=== PATIENT | male | born 1955 | race Caucasian/White ===

== ENCOUNTER 2022-10-31 05:09 | Inpatient (IN) | payer MEDICARE, OTHER ==
[2022-10-31] MEDS ORDERED: methylPREDNISolone SOD SUCCI 125 MG/2 ML VIAL IV STA (05:21)
--- NOTE | 2022-10-31 05:33 | ED ---
General Adult HPI - General Chief complaint: Shortness of Breath Stated complaint: JUAN Time Seen by Provider: 10/31/22 05:11 Source: patient, RN notes reviewed, old records reviewed Mode of arrival: EMS Limitations: no limitations - History of Present Illness Initial comments: 67-year-old male history of COPD and CHF, current smoker presenting for evalu ation of cough and dyspnea over the past one week. Patient denies fever. Denies chest pain. Denies lower extremity pain or swelling. His been compliant with his medications which include blood pressure medications, Eliquis, and water pill. He's had a cough which is occasionally productive. He was transported by paramedics, given DuoNeb during transport with significant improvement - Related Data Allergies Allergy/AdvReac Type Severity Reaction Status Date / Time No Known Allergies Allergy Verified 10/31/22 05:16 Review of Systems ROS Statement: Those systems with pertinent positive or pertinent negative responses have been documented in the HPI. ROS Other: All systems not noted in ROS Statement are negative. Past Medical History Past Medical History: COPD Additional Past Medical History / Comment(s): CHF Past Surgical History: No Surgical Hx Reported Smoking Status: Current every day smoker Past Alcohol Use History: None Reported Past Drug Use History: Marijuana General Exam Limitations: no limitations General appearance: alert, in no apparent distress Head exam: Present: atraumatic, normocephalic Eye exam: Present: normal appearance, PERRL ENT exam: Present: normal exam Neck exam: Present: normal inspection. Absent: tenderness, meningismus Respiratory exam: Present: wheezes, rhonchi, decreased breath sounds. Absent: respiratory distress Cardiovascular Exam: Present: normal rhythm, tachycardia GI/Abdominal exam: Present: soft. Absent: distended, tenderness Extremities exam: Present: normal inspection, normal capillary refill. Absent: pedal edema, calf tenderness Neurological exam: Present: alert, oriented X3, CN II-XII intact. Absent: motor sensory deficit Skin exam: Present: warm, dry, intact. Absent: cyanosis, diaphoretic Course Vital Signs 10/31/22 10/31/22 05:11 06:36 Temperature 98.1 F Pulse Rate 115 H 95 Respiratory 18 20 Rate Blood Pressure 140/87 129/82 O2 Sat by Pulse 97 95 Oximetry EKG Findings - EKG Comments: EKG Findings:: EKG: Sinus tachycardia rate of 112, OK interval 128, QRS duration 132, QTC 422, no ST segment elevation, nonspecific T-wave changes in the lateral precordium, intraventricular conduction delay. No old for comparison. - EKG Results: EKG: interpreted by [facility] Medical Decision Making - Medical Decision Making Was pt. sent in by a medical professional or institution (CLAYTON Mcgowan, DETAIL ASSEMBLER, urgent care, hospital, or intermediate...) When possible be specific @ -[No] Did you speak to anyone other than the patient for history (EMS, parent, family, police, friend...)? What history was obtained from this source @ -[No] Did you review nursing and triage notes (agree or disagree)? Why? @ -[I reviewed and agree with nursing and triage notes] Were old charts reviewed (outside hosp., previous admission, EMS record, old EKG, old radiological studies, urgent care reports/EKG's, intermediate records)? Report findings @ -[No old charts were reviewed] Differential Diagnosis (chest pain, altered mental status, abdominal pain women, abdominal pain men, vaginal bleeding, weakness, fever, dyspnea, syncope, headache, dizziness, GI bleed, back pain, seizure, CVA, palpatations, mental health, musculoskeletal)? @ -Differential Dyspnea: Coronary syndrome, arrhythmia, tamponade, asthma, COPD, pulmonary embolism, pneu monia, pneumothorax, pulmonary effusion, anaphylaxis, diabetic ketoacidosis, flailed chest, pulmonary contusion, diaphragmatic rupture, anemia, neuromuscular, this is not meant to be an all-inclusive list. EKG interpreted by me (3pts min.). @ -[As above] X-rays interpreted by me (1pt min.). @ -Chest x-ray showing pulmonary vascular congestion CT interpreted by me (1pt min.). @ -[None done] U/S interpreted by me (1pt. min.). @ -[None done] What testing was considered but not performed or refused? (CT, X-rays, U/S, labs)? Why? @ -[None] What meds were considered but not given or refused? Why? @ -[None] Did you discuss the management of the patient with other professionals (professionals i.e. CLAYTON Mcgowan, DETAIL ASSEMBLER, lab, RT, psych nurse, social media designer, family lawyer, teacher, correctional program officer, shoe parts caser)? Give summary @ -[Case discussed with the admitting team] Was smoking cessation discussed for >3mins.? @ -[No] Was critical care preformed (if so, how long)? @ -[No] Were there social determinants of health that impacted care today? How? (Home lessness, low income, unemployed, alcoholism, drug addiction, transportation, low edu. Level, literacy, decrease access to med. care, correction, rehab)? @ -[No] Was there de-escalation of care discussed even if they declined (Discuss DNR or withdrawal of care, Hospice)? DNR status @ -[No] What co-morbidities impacted this encounter? (DM, HTN, Smoking, COPD, CAD, Cancer, CVA, ARF, Chemo, Hep., AIDS, mental health diagnosis, sleep apnea, morbid obesity)? @ -[CAD, CHF, COPD] Was patient admitted / discharged? Hospital course, mention meds given and route, prescriptions, significant lab abnormalities, going to OR and other pertinent info. @ -[67-year-old male history of COPD and CHF with increased dyspnea. Likely factors are contributing. Patient is anticoagulated on our requests. No active chest pain. No fever. Vital signs are stable but the patient does have moderate dyspnea and tachypnea with exertion. He'll be kept in observation for treatment of both COPD and CHF. His troponin level is mildly elevated at 0.04 this level will be trended. He is given Lasix, steroids, albuterol and Atrovent in the emergency department] Undiagnosed new problem with uncertain prognosis? @ -[No] Drug Therapy requiring intensive monitoring for toxicity (Heparin, Nitro, Insulin, Cardizem)? @ -[No] Were any procedures done? @ -[No] Diagnosis/symptom? @ -[COPD, CHF] Acute, or Chronic, or Acute on Chronic? @ -[Acute] Uncomplicated (without systemic symptoms) or Complicated (systemic symptoms)? @ -[Complicated] Side effects of treatment? @ -[No] Exacerbation, Progression, or Severe Exacerbation? @ -[COPD exacerbation] Poses a threat to life or bodily function? How? (Chest pain, [place], [place], pneumonia, PE, COPD, DKA, ARF, appy, cholecystitis, CVA, Diverticulitis, Homicidal, Suicidal, threat to staff... and all critical care pts) @ -[Yes, increased work of breathing, hypoxia, respiratory failure] - Lab Data Result diagrams: 10/31/22 05:25 10/31/22 05:25 Lab Results 10/31/22 10/31/22 10/31/22 Range/Units 05:25 05:25 05:25 WBC 7.3 (3.8-10.6) k/uL RBC 4.92 (4.30-5.90) m/uL Hgb 13.2 (13.0-17.5) gm/dL Hct 40.6 (39.0-53.0) % MCV 82.6 (80.0-100.0) fL MCH 26.9 (25.0-35.0) pg MCHC 32.6 (31.0-37.0) g/dL RDW 15.7 H (11.5-15.5) % Plt Count 199 (150-450) k/uL MPV 7.4 Neutrophils % 68 % Lymphocytes % 21 % Monocytes % 5 % Eosinophils % 3 % Basophils % 0 % Neutrophils # 5.0 (1.3-7.7) k/uL Lymphocytes # 1.5 (1.0-4.8) k/uL Monocytes # 0.4 (0-1.0) k/uL Eosinophils # 0.2 (0-0.7) k/uL Basophils # 0.0 (0-0.2) k/uL PT 11.1 (9.0-12.0) sec INR 1.1 (<1.2) APTT 25.6 (22.0-30.0) sec Sodium 140 (137-145) mmol/L Potassium 4.5 (3.5-5.1) mmol/L Chloride 108 H (98-107) mmol/L Carbon Dioxide 24 (22-30) mmol/L Anion Gap 8 mmol/L BUN 28 H (9-20) mg/dL Creatinine 0.89 (0.66-1.25) mg/dL Est GFR (CKD-EPI)AfAm >90 (>60 ml/min/1.73 sqM) Est GFR (CKD-EPI)NonAf 89 (>60 ml/min/1.73 sqM) Glucose 102 H (74-99) mg/dL Calcium 9.1 (8.4-10.2) mg/dL Total Bilirubin 0.5 (0.2-1.3) mg/dL AST 26 (17-59) U/L ALT 41 (4-49) U/L Alkaline Phosphatase 77 (38-126) U/L Troponin I (0.000-0.034) ng/mL NT-Pro-B Natriuret Pep pg/mL Total Protein 6.7 (6.3-8.2) g/dL Albumin 3.9 (3.5-5.0) g/dL 10/31/22 10/31/22 Range/Units 05:25 05:25 WBC (3.8-10.6) k/uL RBC (4.30-5.90) m/uL Hgb (13.0-17.5) gm/dL Hct (39.0-53.0) % MCV (80.0-100.0) fL MCH (25.0-35.0) pg MCHC (31.0-37.0) g/dL RDW (11.5-15.5) % Plt Count (150-450) k/uL MPV Neutrophils % % Lymphocytes % % Monocytes % % Eosinophils % % Basophils % % Neutrophils # (1.3-7.7) k/uL Lymphocytes # (1.0-4.8) k/uL Monocytes # (0-1.0) k/uL Eosinophils # (0-0.7) k/uL Basophils # (0-0.2) k/uL PT (9.0-12.0) sec INR (<1.2) APTT (22.0-30.0) sec Sodium (137-145) mmol/L Potassium (3.5-5.1) mmol/L Chloride (98-107) mmol/L Carbon Dioxide (22-30) mmol/L Anion Gap mmol/L BUN (9-20) mg/dL Creatinine (0.66-1.25) mg/dL Est GFR (CKD-EPI)AfAm (>60 ml/min/1.73 sqM) Est GFR (CKD-EPI)NonAf (>60 ml/min/1.73 sqM) Glucose (74-99) mg/dL Calcium (8.4-10.2) mg/dL Total Bilirubin (0.2-1.3) mg/dL AST (17-59) U/L ALT (4-49) U/L Alkaline Phosphatase (38-126) U/L Troponin I 0.040 H* (0.000-0.034) ng/mL NT-Pro-B Natriuret Pep 1300 pg/mL Total Protein (6.3-8.2) g/dL Albumin (3.5-5.0) g/dL Disposition Clinical Impression: Acute exacerbation of chronic obstructive pulmonary disease, Congestive heart failure Disposition: ADMITTED IP TO THIS [facility] Condition: Stable Is patient prescribed a controlled substance at d/c from ED?: No Referrals: Nonstaff,Physician [Primary Care Provider] - 1-2 days Time of Disposition: 06:57
[2022-10-31 05:43] LABS: Basophils % (A) 0 %; Eosinophils # (A) 0.2 k/uL (0-0.7); Eosinophils % (A) 3 %; HCT 40.6 % (39.0-53.0); HGB 13.2 gm/dL (13.0-17.5); Lymphocytes # (A) 1.5 k/uL (1.0-4.8); Lymphocytes % (A) 21 %; MCH 26.9 pg (25.0-35.0); MCHC 32.6 g/dL (31.0-37.0); MCV 82.6 fL (80.0-100.0); Mean Platelet Volume 7.4; Monocytes # (A) 0.4 k/uL (0-1.0); Monocytes % (A) 5 %; Neutrophils % (A) 68 %; Platelet Count 199 k/uL (150-450); RBC 4.92 m/uL (4.30-5.90); RDW 15.7 % (11.5-15.5); WBC 7.3 k/uL (3.8-10.6)
[2022-10-31 05:52] LABS: INR 1.1 (<1.2); Partial Thromboplastin Time 25.6 sec (22.0-30.0); Prothrombin Time 11.1 sec (9.0-12.0)
[2022-10-31 05:54] LABS: ALT 41 U/L (4-49); AST 26 U/L (17-59); African American GFR (CKD) >90 (>60 ml/min/1.73 sqM); Albumin 3.9 g/dL (3.5-5.0); Alkaline Phosphatase 77 U/L (38-126); Anion Gap 8 mmol/L; Blood Urea Nitrogen 28 mg/dL (9-20); Calcium 9.1 mg/dL (8.4-10.2); Carbon Dioxide 24 mmol/L (22-30); Chloride 108 mmol/L (98-107); Glucose 102 mg/dL (74-99); Non-African American GFR(CKD) 89 (>60 ml/min/1.73 sqM); Potassium 4.5 mmol/L (3.5-5.1); Sodium 140 mmol/L (137-145); Total Bilirubin 0.5 mg/dL (0.2-1.3); Total Protein 6.7 g/dL (6.3-8.2)
--- NOTE | 2022-10-31 06:06 | XR ---
EXAMINATION TYPE: XR chest 2V DATE OF EXAM: 10/31/2022 COMPARISON: NONE HISTORY: Difficulty in breathing. TECHNIQUE: Frontal and lateral views of the chest are obtained. FINDINGS: Increased interstitial markings bilaterally. Cardiac silhouette size is upper limits of no rmal with single lead AICD. No pleural effusion or pneumothorax seen bilaterally. The osseous struc tures are intact. IMPRESSION: Increased interstitial markings bilaterally consistent with edema and/or parenchymal fib rotic change. Correlate for fluid overload state. Correlate with old outside x-ray and/or CT would be beneficial.
[2022-10-31] MEDS ORDERED: ACETAMINOPHEN TAB 325 MG TAB PO PRN (06:52)
[2022-10-31] MEDS ORDERED: NALOXONE 0.4 MG/ML 1 ML VIAL IVP PRN (06:52)
[2022-10-31] MEDS ORDERED: IPRATROPIUM-ALBUTEROL 3 ML NEB INHALATION PRN (06:52)
[2022-10-31] MEDS ORDERED: FUROSEMIDE 10 MG/ML 4 ML VIAL IV STA (06:54)
[2022-10-31] MEDS ORDERED: IPRATROPIUM 0.5 MG/2.5 ML NEBU INHALATION PRN (07:00)
[2022-10-31] MEDS ORDERED: ALBUTEROL NEBULIZED 2.5 MG/3 ML INHALATION PRN (07:00)
[2022-10-31] MEDS ORDERED: ASPIRIN 325 MG TAB PO STA (07:28)
--- NOTE | 2022-10-31 07:31 | P.HPIM ---
History of Present Illness This is a pleasant 67 years old male with past medical history of heart failure on defibrillator. Patient originally from [place] and moved to [place] on, he is not sure if he is staying in town are not. He follow-up with PCP and negative cleaner there, he has history of defibrillator as he describes. Presents because of shortness of breath also complaining of from cough and some phlegm for about one to 2 weeks but denies any chest pain or discomfort. No abdominal pain vomiting or diarrhea, no urinary symptoms, no headache weakness or numbness. He smokes about 2 cigarettes per day and he was counseled to quit and he agrees but he declines nicotine patch. No alcohol. He uses pot as he describes. Vitals stable, he is mildly tachycardic. Labs show an unremarkable CBC, INR, BMP and liver enzymes. Troponin mildly elevated at 0.04. ProBNP is mildly elevated 1300. Chest x-ray which I reviewed by myself showing: Increased interstitial markings consistent with edema and/or parenchymal fibrotic changes. Correlate for fluid overload state. EKG: Sinus tachycardia at [address]-T changes. QRS is slightly prolonged. In the emergency room patient received one dose of Lasix and Zithromax and placed on some Medrol 60 mg Review of Systems Review of systems CONSTITUTIONAL: No fever, no malaise, no fatigue. HEENT: No recent visual problems or hearing problems. Denied any sore throat. CARDIOVASCULAR: No orthopnea, PND, no palpitations, no syncope. PULMONARY: No chest wall tenderness, no hemoptysis. GASTROINTESTINAL: No diarrhea, no nausea, no vomiting, no abdominal pain. Normoactive bowel sounds. NEUROLOGICAL: No headaches, no weakness, no numbness. HEMATOLOGICAL: Denies any bleeding or petechiae. GENITOURINARY: Denies any burning micturition, frequency, or urgency. MUSCULOSKELETAL/RHEUMATOLOGICAL: Denies any joint pain, swelling, or any muscle pain. ENDOCRINE: Denies any polyuria or polydipsia. Past Medical History Past Medical History: COPD Additional Past Medical History / Comment(s): CHF Past Surgical History: No Surgical Hx Reported Smoking Status: Current every day smoker Past Alcohol Use History: None Reported Past Drug Use History: Marijuana Medications and Allergies Allergies Allergy/AdvReac Type Severity Reaction Status Date / Time No Known Allergies Allergy Verified 10/31/22 05:16 Physical Exam Vitals: Vital Signs Temp Pulse Resp BP Pulse Ox 10/31/22 06:36 95 20 129/82 95 10/31/22 05:11 98.1 F 115 H 18 140/87 97 Intake and Output 10/30/22 10/31/22 10/31/22 22:59 06:59 14:59 Other: Weight 122.47 kg -GENERAL: The patient is alert and oriented x3, not in any acute distress obese HEENT: Pupils are round and equally reacting to light. EOMI. No scleral icterus. No conjunctival pallor. Normocephalic, atraumatic. No pharyngeal erythema. No thyromegaly. CARDIOVASCULAR: S1 and S2 present. No murmurs, rubs, or gallops. -PULMONARY: Chest is clear to auscultation, no wheezing or crackles. Very mild wheezing and prolonged expiration ABDOMEN: Soft, nontender, nondistended, normoactive bowel sounds. No palpable organomegaly. MUSCULOSKELETAL: No joint swelling or deformity. EXTREMITIES: No cyanosis, clubbing, or pedal edema. NEUROLOGICAL: Gross neurological examination did not reveal any focal deficits. SKIN: No rashes. no petechiae. Results CBC & Chem 7: 10/31/22 05:25 10/31/22 05:25 Labs: Abnormal Lab Results - Last 24 Hours (Table) 10/31/22 10/31/22 10/31/22 Range/Units 05:25 05:25 05:25 RDW 15.7 H (11.5-15.5) % Chloride 108 H (98-107) mmol/L BUN 28 H (9-20) mg/dL Glucose 102 H (74-99) mg/dL Troponin I 0.040 H* (0.000-0.034) ng/mL Assessment and Plan Assessment: Shortness of breath, most likely acute CHF exacerbation and rather than bronchitis or COPD Mildly elevated troponin, could be explained by CHF, rule out ischemic disease. Nicotine dependence Substance abuse with marijuana Obesity with BMI of 34.7. Plan: Continue with IV Lasix 40 mg twice daily Cardiology consult We will give aspirin 325 mg and then continue with 81 mg daily We'll start patient on metoprolol small dose, and PREET inhibitor Also statin 20 mg of Lipitor and check lipid profile Check echocardiogram, since patient from the tonsil probably he does not have echocardiogram mobile sales assistant Change steroids into prednisone 40, patient also might benefit from pulmonary function tests as an outpatient. Continue with bronchodilator Labs and medication were reviewed.. Continue same treatment. Continue with symptomatic treatment. Resume home medication. Monitor labs and vitals. DVT and GI prophylaxis. Further recommendations as per clinical course of the patient DVT prophylaxis: Subcutaneous heparin GI Prophylaxis: Pepcid PT/OT: Pending Prognosis is guarded
[2022-10-31] MEDS ORDERED: IPRATROPIUM-ALBUTEROL 3 ML NEB INHALATION SCH (08:00)
[2022-10-31] MEDS ORDERED: lisinopriL 5 MG TAB PO SCH (09:00)
[2022-10-31] MEDS ORDERED: HEPARIN SODIUM,PORCINE/PF 5,000 UNIT/0.5 ML SYRINGE SQ SCH (09:00)
[2022-10-31] MEDS ORDERED: carvediloL 6.25 MG TAB PO SCH (09:00)
[2022-10-31] MEDS ORDERED: METOPROLOL TARTRATE 12.5 MG TAB PO SCH (09:00)
[2022-10-31] MEDS ORDERED: AZITHROMYCIN 500 MG TAB PO SCH (09:00)
[2022-10-31] MEDS ORDERED: predniSONE 20 MG TAB PO SCH ×2 (09:00)
[2022-10-31] MEDS ORDERED: FUROSEMIDE 40 MG TAB PO SCH (09:00)
--- NOTE | 2022-10-31 11:32 | P.CRDCN ---
History of Present Illness Consult date: 10/31/22 Consult reason: congestive heart failure (And elevated troponins) History of present illness: History of present illness: This is a 67-year-old male with previous history of cardiomyopathy status post AICD, chronic systolic heart failure, permanent atrial fibrillation, hypertension, COPD, active tobacco use and dependence. Patient is from the [facility] and follows with a hospital technician there. He believes that he will be staying in the [facility]. Patient states he has had shortness of breath for 1-2 weeks. No chest pain, no lightheadedness or dizziness. He states at this time he would not be able to walk up a flight of stairs which is normally easy for him. He is an active smoker couple cigarettes per day. He denies o PND, +orthopnea, +cough. Blood pressure readings have been elevated. In the emergency center, patient was started on IV Lasix, IV Solu-Medrol. Patient does not recall if he has had a cardiac catheterization before believes he had a stress test done last summer. EKG sinus tachycardia with T-wave changes in lateral leads, biphasic P waves in leads V5, V6, aVL Chest x-ray: Increased interstitial markings bilaterally consistent with edema and/or pressure mild fibrotic change. Correlate for fluid overload state. Correlate with old x-ray CAT scan. WBC 7.3, hemoglobin 13.2, platelet count 199. INR 1.1. Sodium 140, potassium 4.5, BUN 20 creatinine 0.89. Troponin 0.040 and 0.031. ProBNP 1300. Home cardiac medications: Amiodarone 200 mg daily, eliquis 5 mg daily, Coreg 6.25 mg daily, Lasix 40 mg daily, lisinopril 10 mg daily Review Of Systems: At the time of my evaluation: Constitutional: No fever, no chills. No weakness, fatigue or lethargy. EENT: No headache. No dizziness. Lungs: Reports shortness of breath, reports cough, no sputum production. No wheezing. Cardiovascular: No chest pain, no lower extremity edema. No palpitations. No paroxysmal nocturnal dyspnea. No orthopnea. No lightheadedness or dizziness. No syncopal episodes. Abdominal: No abdominal pain. No nausea, vomiting. No diarrhea. No constipation. No bloody or tarry stools. Musculoskeletal: No muscle weakness. Neurologic: No aphasia. No facial droop. No change in mentation. No head injury. No headache. Physical examination: Gen: This is a 67-year-old male. He is resting in bed and appears very comfortable and in no acute distress. VS: reviewed HEENT: Head is atraumatic, normocephalic. Pupils equal, round. Sclerae is anicteric. NECK: Supple. No JVD. . LUNGS: Diminished breath sounds bilaterally. No wheezing. No intercostal retractions. HEART: Regular rate and rhythm. No murmur. AICD left anterior chest wall ABDOMEN: Soft No tenderness. EXTREMITIES: No pedal edema. No calf tenderness. NEUROLOGICAL: Patient is awake, alert and oriented x3. Assessment: Acute on chronic systolic heart failure Cardiomyopathy status post AICD, unknown if this is ischemic or nonischemic Permanent atrial fibrillation currently in sinus rhythm Hypertension COPD Active tobacco use and dependence Plan: Resume patient's home cardiac medications, increased frequency of Coreg to twice daily Continue IV Lasix 40 mg every 12 hours, monitor I&O, daily weights, electrolytes and renal function Decrease prednisone to 20 mg daily and plan to discontinue soon Discontinue aspirin Obtain TSH/free T4, lipid panel, A1c Obtain 2-D echocardiogram and Doppler study to assess cardiac structure and function Obtain records from [facility] Further recommendations to follow based upon clinical course Thank you kindly for this consultation. Nurse practitioner note has been reviewed, I agree with documented findings and plan of care. Patient was seen and examined. Past Medical History Past Medical History: COPD Additional Past Medical History / Comment(s): CHF Past Surgical History: No Surgical Hx Reported Smoking Status: Current every day smoker Past Alcohol Use History: None Reported Past Drug Use History: Marijuana Medications and Allergies Home Medications Medication Instructions Recorded Confirmed Type Amiodarone [Cordarone] 200 mg PO DAILY 10/31/22 10/31/22 History Apixaban [Eliquis] 5 mg PO DAILY 10/31/22 10/31/22 History Furosemide [Lasix] 40 mg PO DAILY 10/31/22 10/31/22 History Gabapentin 600 mg PO TID PRN 10/31/22 10/31/22 History carvediloL [Coreg] 6.25 mg PO DAILY 10/31/22 10/31/22 History lisinopriL [Zestril] 10 mg PO DAILY 10/31/22 10/31/22 History Allergies Allergy/AdvReac Type Severity Reaction Status Date / Time No Known Allergies Allergy Verified 10/31/22 08:20 Physical Exam Vitals: Vital Signs Temp Pulse Resp BP Pulse Ox 10/31/22 06:36 95 20 129/82 95 10/31/22 05:11 98.1 F 115 H 18 140/87 97 Intake and Output 10/30/22 10/31/22 10/31/22 22:59 06:59 14:59 Other: Weight 122.47 kg Results 10/31/22 05:25 10/31/22 05:25 Cardiac Enzymes 10/31/22 10/31/22 Range/Units 05:25 05:25 AST 26 (17-59) U/L Troponin I 0.040 H* (0.000-0.034) ng/mL Coagulation 10/31/22 Range/Units 05:25 PT 11.1 (9.0-12.0) sec APTT 25.6 (22.0-30.0) sec CBC 10/31/22 Range/Units 05:25 WBC 7.3 (3.8-10.6) k/uL RBC 4.92 (4.30-5.90) m/uL Hgb 13.2 (13.0-17.5) gm/dL Hct 40.6 (39.0-53.0) % Plt Count 199 (150-450) k/uL Comprehensive Metabolic Panel 10/31/22 Range/Units 05:25 Sodium 140 (137-145) mmol/L Potassium 4.5 (3.5-5.1) mmol/L Chloride 108 H (98-107) mmol/L Carbon Dioxide 24 (22-30) mmol/L BUN 28 H (9-20) mg/dL Creatinine 0.89 (0.66-1.25) mg/dL Glucose 102 H (74-99) mg/dL Calcium 9.1 (8.4-10.2) mg/dL AST 26 (17-59) U/L ALT 41 (4-49) U/L Alkaline Phosphatase 77 (38-126) U/L Total Protein 6.7 (6.3-8.2) g/dL Albumin 3.9 (3.5-5.0) g/dL Current Medications Generic Name Dose Route Start Last Admin Trade Name Freq PRN Reason Stop Dose Admin Acetaminophen 650 mg 10/31/22 06:52 Acetaminophen Tab 325 Mg Tab PO Q4HR PRN Mild Pain or Fever > 100.5 Albuterol Sulfate 2.5 mg 10/31/22 08:00 Albuterol Nebulized 2.5 Mg/3 Ml INHALATION RT-QID [facility] Albuterol Sulfate 2.5 mg 10/31/22 07:00 Albuterol Nebulized 2.5 Mg/3 Ml INHALATION RT-Q2H PRN Shortness Of Breath Or Wheezing Amiodarone HCl 200 mg 10/31/22 09:00 Amiodarone 200 Mg Tab PO DAILY [facility] Apixaban 5 mg 10/31/22 09:00 Apixaban 5 Mg Tab PO DAILY [facility] Protocol Aspirin 81 mg 11/01/22 09:00 Aspirin 81 Mg PO DAILY [facility] Atorvastatin Calcium 20 mg 10/31/22 21:00 Atorvastatin 20 Mg Tab PO HS [facility] Azithromycin 500 mg 10/31/22 09:00 Azithromycin 500 Mg Tab PO 11/02/22 09:01 DAILY [facility] Protocol Budesonide/Formoterol Fumarate 2 puff 10/31/22 08:00 Symbicort 160-4.5 Mcg Inhaler INHALATION RT-BID [facility] Carvedilol 6.25 mg 10/31/22 09:00 Carvedilol 6.25 Mg Tab PO DAILY [facility] Famotidine 20 mg 10/31/22 09:00 Famotidine 20 Mg/2 Ml Vial IV Q12HR [facility] Furosemide 40 mg 10/31/22 21:00 Furosemide 10 Mg/Ml 4 Ml Vial IV Q12HR [facility] Ipratropium [place] 0.5 mg 10/31/22 08:00 Ipratropium 0.5 Mg/2.5 Ml Nebu INHALATION RT-QID [facility] Ipratropium [place] 0.5 mg 10/31/22 07:00 Ipratropium 0.5 Mg/2.5 Ml Nebu INHALATION RT-Q2H PRN Shortness Of Breath Or Wheezing Naloxone HCl 0.2 mg 10/31/22 06:52 Naloxone 0.4 Mg/Ml 1 Ml Vial IVP Q2M PRN Opioid Reversal Prednisone 20 mg 10/31/22 09:00 Prednisone 20 Mg Tab PO DAILY [facility] Sacubitril/Valsartan 1 each 11/02/22 09:00 Sacubitril/Valsartan 24 Mg-26 Mg Tablet PO BID YVES Intake and Output 10/30/22 10/31/22 10/31/22 22:59 06:59 14:59 Other: Weight 122.47 kg 10/31/22 05:25 10/31/22 05:25
[2022-10-31] MEDS: ALBUTEROL NEBULIZED 2.5 MG/3 ML INHALATION SCH ×4 (11:37→20:23)
[2022-10-31] MEDS: IPRATROPIUM 0.5 MG/2.5 ML NEBU INHALATION SCH ×4 (11:38→20:22)
[2022-10-31] MEDS: SYMBICORT 160-4.5 MCG INHALER INHALATION SCH ×2 (11:38→20:22)
[2022-10-31] MEDS: FAMOTIDINE 20 MG/2 ML VIAL IV SCH ×2 (11:42→21:13)
[2022-10-31] MEDS: AMIODARONE 200 MG TAB PO SCH (11:43)
[2022-10-31] MEDS: APIXABAN 5 MG TAB PO SCH (11:44)
[2022-10-31 11:59] LABS: Chol/HDL Ratio 3.76 Ratio; LDL Cholesterol,Calculated 104.4 mg/dL (0.0-131.0); VLDL Calculation 14.46 mg/dL (5.00-40.00)
[2022-10-31] MEDS ORDERED: methylPREDNISolone SOD SUCCI 125 MG/2 ML VIAL IV SCH (12:00)
[2022-10-31] MEDS ORDERED: FUROSEMIDE 10 MG/ML 4 ML VIAL IV SCH (21:00)
[2022-10-31] MEDS ORDERED: ATORVASTATIN 20 MG TAB PO SCH (21:00)
[2022-10-31] MEDS: carvediloL 6.25 MG TAB PO SCH (21:14)
[2022-11-01 01:58] VITALS: RESP 18
[2022-11-01 07:35] LABS: Basophils % (A) 0 %; Eosinophils % (A) 0 %; HCT 44.7 % (39.0-53.0); HGB 14.2 gm/dL (13.0-17.5); Lymphocytes # (A) 1.3 k/uL (1.0-4.8); Lymphocytes % (A) 8 %; MCH 26.8 pg (25.0-35.0); MCHC 31.7 g/dL (31.0-37.0); MCV 84.4 fL (80.0-100.0); Mean Platelet Volume 7.5; Monocytes # (A) 0.8 k/uL (0-1.0); Monocytes % (A) 5 %; Neutrophils # (A) 13.1 k/uL (1.3-7.7); Neutrophils % (A) 85 %; Platelet Count 273 k/uL (150-450); RBC 5.29 m/uL (4.30-5.90); RDW 15.6 % (11.5-15.5); WBC 15.4 k/uL (3.8-10.6)
[2022-11-01 08:16] LABS: Calcium 9.2 mg/dL (8.4-10.2); Potassium 4.6 mmol/L (3.5-5.1)
[2022-11-01] MEDS: ALBUTEROL NEBULIZED 2.5 MG/3 ML INHALATION SCH ×3 (08:49→16:04)
[2022-11-01] MEDS: SYMBICORT 160-4.5 MCG INHALER INHALATION SCH (08:49)
[2022-11-01] MEDS ORDERED: predniSONE 5 MG TAB PO SCH (09:00)
[2022-11-01] MEDS ORDERED: ASPIRIN 81 MG PO SCH (09:00)
[2022-11-01] MEDS ORDERED: FUROSEMIDE 40 MG TAB PO SCH (09:00)
[2022-11-01] MEDS: IPRATROPIUM 0.5 MG/2.5 ML NEBU INHALATION SCH ×3 (09:04→16:05)
[2022-11-01] MEDS: AMIODARONE 200 MG TAB PO SCH (09:24)
[2022-11-01] MEDS: APIXABAN 5 MG TAB PO SCH (09:24)
[2022-11-01] MEDS: carvediloL 6.25 MG TAB PO SCH (09:24)
[2022-11-01] MEDS: FAMOTIDINE 20 MG/2 ML VIAL IV SCH (09:25)
--- NOTE | 2022-11-01 09:52 | P.PN ---
Subjective Progress Note Date: 11/01/22 History of present illness: This is a 67-year-old male with previous history of cardiomyopathy status post AICD, chronic systolic heart failure, permanent atrial fibrillation, hypertension, COPD, active tobacco use and dependence. Patient is from the [facility] and follows with a city assessor there. He believes that he will be staying in the [facility]. Patient states he has had shortness of breath for 1-2 weeks. No chest pain, no lightheadedness or dizziness. He states at this time he would not be able to walk up a flight of stairs which is normally easy for him. He is an active smoker couple cigarettes per day. He denies o PND, +orthopnea, +cough. Blood pressure readings have been elevated. In the emergency center, patient was started on IV Lasix, IV Solu-Medrol. Patient does not recall if he has had a cardiac catheterization before believes he had a stress test done last summer. EKG sinus tachycardia with T-wave changes in lateral leads, biphasic P waves in leads V5, V6, aVL Chest x-ray: Increased interstitial markings bilaterally consistent with edema and/or pressure mild fibrotic change. Correlate for fluid overload state. Correlate with old x-ray CAT scan. WBC 7.3, hemoglobin 13.2, platelet count 199. INR 1.1. Sodium 140, potassium 4.5, BUN 20 creatinine 0.89. Troponin 0.040 and 0.031. ProBNP 1300. Home cardiac medications: Amiodarone 200 mg daily, eliquis 5 mg daily, Coreg 6.25 mg daily, Lasix 40 mg daily, lisinopril 10 mg daily 11/01 Patient is seen today in follow-up. He has been maintained on IV Lasix 40 mg every 12 hours. Weight is documented as down 5 kg. INR does not appear to be accurate. Heart rate has been running in the 102-120 and a repeat EKG will was done which showed sinus tachycardia. Blood pressure 114/78, pulse ox 92% on room air. Repeat blood work today reveals WBC 15.4, hemoglobin 14.2. Potassium 4.6, BUN 39 and creatinine 1.13 up from 0.89. TSH 1.540. Triglycerides 72, cholesterol 162, LDL 104, HDL 43. Echocardiogram has been obtained but report is pending. Reports were not obtained from [place] and will be requested today. Physical examination: Gen: This is a 67-year-old male. He is resting in bed and appears very comfortable and in no acute distress. VS: reviewed HEENT: Head is atraumatic, normocephalic. Pupils equal, round. Sclerae is anicteric. NECK: Supple. No JVD. . LUNGS: Diminished breath sounds bilaterally. No wheezing. No intercostal retractions. HEART: Regular rate and rhythm. No murmur. AICD left anterior chest wall. Tachycardic ABDOMEN: Soft No tenderness. EXTREMITIES: No pedal edema. No calf tenderness. NEUROLOGICAL: Patient is awake, alert and oriented x3. Assessment: Acute on chronic systolic heart failure Sinus tachycardia Cardiomyopathy status post AICD, unknown if this is ischemic or nonischemic Permanent atrial fibrillation currently in sinus rhythm Hypertension COPD Active tobacco use and dependence Plan: Resume patient's home cardiac medications, continue Coreg 6.25 mg twice daily Transition IV Lasix to oral 40 mg twice daily which most likely will be the dose to go home on. Continue to monitor I&O, daily weights, electrolytes and renal function Decrease prednisone to 5 mg daily and plan to discontinue soon Obtain A1c Obtain 2-D echocardiogram and Doppler study to assess cardiac structure and function-report is pending Obtain records from [place] city assessor/[facility] [employer] to interrogate AICD Further recommendations to follow based upon clinical course Nurse practitioner note has been reviewed, I agree with documented findings and plan of care. Patient was seen and examined. Objective - Vital Signs Vital signs: Vital Signs Temp 98.4 F 11/01/22 00:00 Pulse 123 H 11/01/22 02:00 Resp 18 11/01/22 02:00 BP 114/78 11/01/22 00:00 Pulse Ox 92 L 11/01/22 00:00 FiO2 Intake & Output 10/31/22 11/01/22 11/01/22 18:59 06:59 18:59 Intake Total 480 Output Total 0 0 Balance 480 0 Weight 122.47 kg 117 kg Intake: Oral 480 Output: Gastric Drainage 0 Urine 0 Stool 0 0 Urine/Stool Mix 0 Emesis 0 Oral Regurgitation 0 Other 0 Other: Voiding Method Toilet Toilet # Voids 0 1 # Bowel Movements 0 - Labs CBC & Chem 7: 11/01/22 06:16 11/01/22 06:16
--- NOTE | 2022-11-01 12:29 | P.PN ---
Subjective This is a pleasant 67 years old male with past medical history of heart failure on defibrillator. Patient originally from [place] and moved to [place] on, he is not sure if he is staying in town are not. He follow-up with PCP and flat hammerer there, he has history of defibrillator as he describes. Presents because of shortness of breath also complaining of from cough and some phlegm for about one to 2 weeks but denies any chest pain or discomfort. No abdominal pain vomiting or diarrhea, no urinary symptoms, no headache weakness or numbness. He smokes about 2 cigarettes per day and he was counseled to quit and he agrees but he declines nicotine patch. No alcohol. He uses pot as he describes. Vitals stable, he is mildly tachycardic. Labs show an unremarkable CBC, INR, BMP and liver enzymes. Troponin mildly elevated at 0.04. ProBNP is mildly elevated 1300. Chest x-ray which I reviewed by myself showing: Increased interstitial markings consistent with edema and/or parenchymal fibrotic changes. Correlate for fluid overload state. EKG: Sinus tachycardia at [address]-T changes. QRS is slightly prolonged. In the emergency room patient received one dose of Lasix and Zithromax and placed on some Medrol 60 mg Objective - Vital Signs Vital signs: Vital Signs Temp 98.6 F 11/01/22 12:00 Pulse 100 11/01/22 12:00 Resp 18 11/01/22 12:00 BP 132/66 11/01/22 12:00 Pulse Ox 95 11/01/22 12:00 FiO2 Intake & Output 10/31/22 11/01/22 11/01/22 18:59 06:59 18:59 Intake Total 480 390 Output Total 0 875 Balance 480 -875 390 Weight 122.47 kg 117 kg Intake: IV 30 Invasive Line 1 30 Oral 480 360 Output: Gastric Drainage 0 Urine 0 875 Stool 0 0 Urine/Stool Mix 0 Emesis 0 Oral Regurgitation 0 Other 0 Other: Voiding Method Toilet Toilet Urinal # Voids 0 2 # Bowel Movements 0 - Exam GENERAL: The patient is alert and oriented x3, not in any acute distress. Well developed, well nourished. HEENT: Pupils are round and equally reacting to light. EOMI. No scleral icterus. No conjunctival pallor. Normocephalic, atraumatic. No pharyngeal erythema. No thyromegaly. CARDIOVASCULAR: S1 and S2 present. No murmurs, rubs, or gallops. PULMONARY: Chest is clear to auscultation, no wheezing or crackles. ABDOMEN: Soft, nontender, nondistended, normoactive bowel sounds. No palpable organomegaly. MUSCULOSKELETAL: No joint swelling or deformity. EXTREMITIES: No cyanosis, clubbing, or pedal edema. NEUROLOGICAL: Gross neurological examination did not reveal any focal deficits. SKIN: No rashes. no petechiae. - Labs CBC & Chem 7: 11/01/22 06:16 11/01/22 06:16 Labs: Abnormal Lab Results - Last 24 Hours (Table) 11/01/22 11/01/22 Range/Units 06:16 06:16 WBC 15.4 H (3.8-10.6) k/uL RDW 15.6 H (11.5-15.5) % Neutrophils # 13.1 H (1.3-7.7) k/uL BUN 39 H (9-20) mg/dL Glucose 136 H (74-99) mg/dL Assessment and Plan Assessment: Shortness of breath, most likely acute CHF exacerbation and rather than bronchitis or COPD Mildly elevated troponin, could be explained by CHF, rule out ischemic disease. Nicotine dependence Substance abuse with marijuana Obesity with BMI of 34.7. Plan: Continue with oral Lasix 40 mg twice daily Cardiology consult Continue with Eliquis Continue with Coreg Continue with entresto and amiodarone a flat hammerer continue with statin 20 mg of Lipitor and check lipid profile Agree with tapering off prednisone Check echocardiogram, since patient from the tonsil probably he does not have echocardiogram Labs and medication were reviewed.. Continue same treatment. Continue with symptomatic treatment. Resume home medication. Monitor labs and vitals. DVT and GI prophylaxis. Further recommendations as per clinical course of the patient DVT prophylaxis: Eliquis Possible discharge in 24-48 hours was cleared by cardiology service
--- NOTE | 2022-11-01 13:42 | CA ---
Transthoracic Echo Report Name: Slade Mtz Age: 67 Gender: M : 1955 Exam Date: 10/31/2022 07:29 Exam Location: [facility] Ht (in): 72 Wt (lb): 270 Ordering Physician: Maxime Self MD Attending/Referring Phys: [id number], Clair Laundry Washer Jose Hester, FREDRICK Procedure CPT: Indications: Rule out heart disease Cardiac Hx: Technical Quality: Fair Contrast 1: Total Dose (mL): Contrast 2: Total Dose (mL): MEASUREMENTS (Male / Female) Normal Values 2D ECHO LV Diastolic Diameter PLAX 6.5 cm 4.2 - 5.9 / 3.9 - 5.3 cm LV Systolic Diameter PLAX 5.7 cm IVS Diastolic Thickness 1.5 cm 0.6 - 1.0 / 0.6 - 0.9 cm LVPW Diastolic Thickness 1.4 cm 0.6 - 1.0 / 0.6 - 0.9 cm LV Relative Wall Thickness 0.4 RV Internal Dim ED PLAX 3.8 cm LA Volume 102.0 cm??? 18 - 58 / 22 - 52 cm??? M-MODE Aortic Root Diameter MM 3.2 cm AV Cusp Separation MM 2.0 cm DOPPLER AV Peak Velocity 122.4 cm/s AV Peak Gradient 6.0 mmHg LVOT Peak Velocity 104.3 cm/s LVOT Peak Gradient 4.4 mmHg MV Area PHT 7.5 cm??? Mitral E Point Velocity 84.0 cm/s Mitral A Point Velocity 63.8 cm/s Mitral E to A Ratio 1.3 MV Deceleration Time 100.5 ms FINDINGS Left Ventricle Moderately increased septal wall thickness. Moderately increased left ventricular diastolic diameter. Abnormal left ventricular diastolic filling pattern. Left ventricular ejection fraction is estimated at 25-30 %. Right Ventricle Right ventricular dilatation. Right ventricular systolic pressure within normal limits. Right Atrium Normal right atrial size. Catheter/pacemaker wire in the right atrial cavity. Left Atrium Mildly increased left atrial volume. Mitral Valve Moderate mitral regurgitation. Aortic Valve Trileaflet aortic valve. No aortic regurgitation. No aortic stenosis. Tricuspid Valve Trace tricuspid regurgitation. Pulmonic Valve Structurally normal pulmonic valve. No pulmonic regurgitation. Pericardium No pleural effusion. No pericardial effusion. Aorta Normal size aortic root and proximal ascending aorta. CONCLUSIONS Moderate increased left ventricular wall thickness Left ventricular ejection fraction 25-30% Mild right ventricular dilation Mild to moderately dilated left atrium Moderate mitral regurgitation Trace tricuspid regurgitation No pericardial effusion Previewed by: Dr. John Hernandez DO (Electronically Signed) Final Date: 01 November 2022 13:41
[2022-11-01 17:58] VITALS: BP 116/80; PULSE 99; TEMP 98.2
[2022-11-01] MEDS ORDERED: FAMOTIDINE 20 MG TAB PO SCH (21:00)
[2022-11-02] MEDS ORDERED: SACUBITRIL/VALSARTAN 24 MG-26 MG TABLET PO SCH (09:00)
== END 2022-11-01 17:52 | disposition home or self-care (01) | DRG 291 ==
LOC: EC 05:09 → 3SCARD 06:52 → OBSVTOIN 11-01 06:13
PROVIDERS: ADMIT Hospitalist; ATTEND Hospitalist
DX: I11.0 Hypertensive heart disease with heart failure (principal); I50.23 Acute on chronic systolic (congestive) heart failure; I48.21 Permanent atrial fibrillation; E66.9 Obesity, unspecified; F12.10 Cannabis abuse, uncomplicated; F17.210 Nicotine dependence, cigarettes, uncomplicated; Z71.6 Tobacco abuse counseling; I42.9 Cardiomyopathy, unspecified; J44.9 Chronic obstructive pulmonary disease, unspecified; T38.0X5A Adverse effect of glucocorticoids and synthetic analogues, initial encounter; D72.829 Elevated white blood cell count, unspecified; R77.8 Other specified abnormalities of plasma proteins; Z79.01 Long term (current) use of anticoagulants; Z68.34 Body mass index [BMI] 34.0-34.9, adult; Z79.82 Long term (current) use of aspirin; Z79.899 Other long term (current) drug therapy; Z95.810 Presence of automatic (implantable) cardiac defibrillator
CPT/HCPCS: 36415; 71046; 80048; 80053; 80061; 83036; 83880; 84443; 84484; 85025; 85610; 85730; 93005; 93306; 94640; 94760

== ENCOUNTER → 2022-11-29 | Outpatient (CLI) | payer MEDICARE, OTHER ==
[2022-11-29 16:00] LABS: African American GFR (CKD) 47.3 (60.0-200.0); Anion Gap 11.4 mmol/L (10.00-18.00); BUN/Creat Ratio 24.12 Ratio (12.00-20.00); Carbon Dioxide 22.6 mmol/L (20.0-27.5); Magnesium 2.4 mg/dL (1.5-2.4); Non-African American GFR(CKD) 40.8 (60.0-200.0); Potassium 5.5 mmol/L (3.5-5.5)
== END | disposition home or self-care (01) ==
LOC: LABWHC1 07:29
PROVIDERS: ATTEND Internal Medicine Clinical Cardiac Electrophysiology
DX: I10 Essential (primary) hypertension (principal)
CPT/HCPCS: 36415; 80048; 83735

== ENCOUNTER → 2023-02-07 | Outpatient (CLI) | payer MEDICARE, OTHER ==
[2023-02-07 16:31] LABS: ALT 24 U/L (10-49); AST 16 U/L (14-35); Albumin 4.2 d/dL (3.8-4.9); Albumin/Globulin Ratio 1.75 Ratio (1.60-3.17); Alkaline Phosphatase 84 U/L (41-126); BUN/Creat Ratio 19.24 Ratio (12.00-20.00); Blood Urea Nitrogen 32.7 mg/dL (9.0-27.0); Calcium 9.3 mg/dL (8.7-10.3); Carbon Dioxide 21.7 mmol/L (21.6-31.8); Chloride 108 mmol/L (96-109); Chol/HDL Ratio 2.81 Ratio; Globulin 2.4 d/dL (1.6-3.3); Glucose 100 mg/dL (70-110); LDL Cholesterol,Calculated 51.4 mg/dL (0.0-131.0); Magnesium 2.4 mg/dL (1.5-2.4); Potassium 4.7 mmol/L (3.5-5.5); Sodium 141 mmol/L (135-145); Total Bilirubin 0.4 mg/dL (0.3-1.2); Total Protein 6.6 d/dL (6.2-8.2)
== END | disposition home or self-care (01) ==
LOC: LABWHC1 07:38
PROVIDERS: ATTEND Internal Medicine Interventional Cardiology
DX: I10 Essential (primary) hypertension (principal); E78.5 Hyperlipidemia, unspecified
CPT/HCPCS: 36415; 80053; 80061; 83735

== ENCOUNTER 2023-03-03 12:29 | Emergency (ER) | payer MEDICARE, OTHER ==
[2023-03-03 12:44] VITALS: TEMP 97.6
[2023-03-03 13:09] LABS: Basophils % (A) 1 %; Eosinophils # (A) 0.3 k/uL (0-0.7); Eosinophils % (A) 5 %; HCT 43.5 % (39.0-53.0); Lymphocytes # (A) 1.4 k/uL (1.0-4.8); Lymphocytes % (A) 24 %; MCHC 32.3 g/dL (31.0-37.0); MCV 86.8 fL (80.0-100.0); Mean Platelet Volume 7.3; Monocytes # (A) 0.3 k/uL (0-1.0); Monocytes % (A) 6 %; Neutrophils # (A) 3.8 k/uL (1.3-7.7); Neutrophils % (A) 63 %; Platelet Count 177 k/uL (150-450); RBC 5.01 m/uL (4.30-5.90); RDW 15.9 % (11.5-15.5)
[2023-03-03 13:19] LABS: Partial Thromboplastin Time 24.5 sec (22.0-30.0); Prothrombin Time 10.8 sec (9.0-12.0)
[2023-03-03 13:25] LABS: ALT 26 U/L (4-49); African American GFR (CKD) 78 (>60 ml/min/1.73 sqM); Albumin 4.1 g/dL (3.5-5.0); Anion Gap 7 mmol/L; Blood Urea Nitrogen 34 mg/dL (9-20); Carbon Dioxide 23 mmol/L (22-30); Chloride 109 mmol/L (98-107); Glucose 99 mg/dL (74-99); Non-African American GFR(CKD) 67 (>60 ml/min/1.73 sqM); Sodium 139 mmol/L (137-145); Total Bilirubin 0.9 mg/dL (0.2-1.3)
--- NOTE | 2023-03-03 13:27 | XR ---
EXAMINATION TYPE: XR chest 2V DATE OF EXAM: 03/03/2023 1:21 PM COMPARISON: Chest radiographs from 10/31/2022 TECHNIQUE: XR chest 2V Frontal and lateral views of the chest. CLINICAL INDICATION:Male, 67 years old with history of Chest Pain; FINDINGS: Lungs/Pleura: There is flattening of the diaphragm with increased lucency of the lungs. No evidence o f pneumothorax, pleural effusion or focal consolidation. Pulmonary vascularity: Unremarkable. Heart/mediastinum: Cardiomediastinal silhouette is unremarkable. Single-lead cardiac conduction devic e overlying the left hemithorax with lead projecting over the right ventricle. Musculoskeletal: No acute osseous pathology. IMPRESSION: 1. No acute cardiopulmonary disease process. 2. COPD changes.
[2023-03-03 13:28] LABS: Potassium 5.1 mmol/L (3.5-5.1)
[2023-03-03 13:29] LABS: AST 28 U/L (17-59); Alkaline Phosphatase 81 U/L (38-126); Magnesium 2.2 mg/dL (1.6-2.3)
[2023-03-03 13:33] LABS: NT-Pro-B-Type Natriuretic Pept 595 pg/mL
[2023-03-03] MEDS ORDERED: KETOROLAC 15 MG/ML 1 ML VIAL IM STA (16:05)
--- NOTE | 2023-03-03 16:18 | ED ---
General Adult HPI - General Chief complaint: Chest Pain Stated complaint: Chest Pain Time Seen by Provider: 03/03/23 15:34 Source: patient Mode of arrival: ambulatory Limitations: no limitations - History of Present Illness Initial comments: This is a 67-year-old male with a past medical history including hypertension, diabetes as well as congestive heart failure status post defibrillator presents emergency department for right-sided chest pain. The patient stated that over the last 1 week he had pain on the right lateral chest with pain with abduction of his right arm. The patient denied any trauma denied any muscle strain to the area. The patient stated that because of the persistence of the pain he presents emergency department for further evaluation. The patient denied any shortness of breath or difficulty in breathing. The patient did have reproducible pain to the right lateral pectoralis muscle in the axilla. The patient denied any other acute pain or complaints at this time. - Related Data Home Medications Medication Instructions Recorded Confirmed Apixaban [Eliquis] 5 mg PO BID 10/31/22 11/01/22 Gabapentin 600 mg PO TID PRN 10/31/22 10/31/22 Previous Rx's Medication Instructions Recorded Albuterol Inhaler [Ventolin Hfa 1 puff INHALATION QID PRN #8 gm 11/01/22 Inhaler] Amiodarone [Cordarone] 200 mg PO DAILY #30 tab 11/01/22 Atorvastatin [Lipitor] 20 mg PO HS #30 tab 11/01/22 Furosemide [Lasix] 40 mg PO BID@0900,1600 #60 tab 11/01/22 Sacubitril/Valsartan [Entresto 24 1 each PO BID #60 tab 11/01/22 mg-26 mg Tablet] carvediloL [Coreg] 6.25 mg PO BID #60 tab 11/01/22 Allergies Allergy/AdvReac Type Severity Reaction Status Date / Time No Known Allergies Allergy Verified 03/03/23 12:44 Review of Systems ROS Statement: Those systems with pertinent positive or pertinent negative responses have been documented in the HPI. ROS Other: All systems not noted in ROS Statement are negative. Past Medical History Past Medical History: COPD Additional Past Medical History / Comment(s): CHF History of Any Multi-Drug Resistant Organisms: None Reported Past Surgical History: No Surgical Hx Reported Additional Past Surgical History / Comment(s): hernia repair Past Anesthesia/Blood Transfusion Reactions: No Reported Reaction Type of Cardiac Device: AICD Device Placement Date:: 2016 Past Psychological History: No Psychological Hx Reported Smoking Status: Current every day smoker Past Alcohol Use History: None Reported Past Drug Use History: Marijuana General Exam Limitations: no limitations General appearance: alert, in no apparent distress, obese Head exam: Present: atraumatic, normocephalic, normal inspection Eye exam: Present: normal appearance, PERRL Pupils: Present: normal accommodation ENT exam: Present: normal exam, normal oropharynx, mucous membranes moist Neck exam: Present: normal inspection, full ROM Respiratory exam: Present: normal lung sounds bilaterally, chest wall tenderness (TTP over the right lateral pectoralis muscle near the axilla) Cardiovascular Exam: Present: regular rate, normal rhythm, normal heart sounds GI/Abdominal exam: Present: soft, normal bowel sounds Extremities exam: Present: normal inspection, full ROM Back exam: Present: normal inspection, full ROM Neurological exam: Present: alert, oriented X3, CN II-XII intact Psychiatric exam: Present: normal affect, normal mood Skin exam: Present: warm, dry Course Vital Signs 03/03/23 12:40 Temperature 97.6 F Pulse Rate 68 Respiratory 20 Rate Blood Pressure 131/90 O2 Sat by Pulse 97 Oximetry EKG Findings - EKG Comments: EKG Findings:: An EKG was obtained and was interpreted by myself showing a rate of 62, AL interval 162, QRS duration of 136 and QTC of 426. This EKG showed a normal sinus rhythm with no ST segment elevation or depression noted. The patient did have mild T-wave inversions in lead V2 through V6 however based on old EKGs, this was similar and unchanged Medical Decision Making - Medical Decision Making Was pt. sent in by a medical professional or institution (, PA, PUNCH PRESS SETTER, urgent care, hospital, or long-term...) When possible be specific @ -No Did you speak to anyone other than the patient for history (EMS, parent, family, police, friend...)? What history was obtained from this source @ -No Did you review nursing and triage notes (agree or disagree)? Why? @ -I reviewed and agree with nursing and triage notes Were old charts reviewed (outside hosp., previous admission, EMS record, old EKG, old radiological studies, urgent care reports/EKG's, long-term records)? Report findings @ -No old charts were reviewed Differential Diagnosis (chest pain, altered mental status, abdominal pain women, abdominal pain men, vaginal bleeding, weakness, fever, dyspnea, syncope, headache, dizziness, GI bleed, back pain, seizure, CVA, palpatations, mental health)? @ -Chest wall muscle strain, ACS, contusion EKG interpreted by me (3pts min.). @ -As above X-rays interpreted by me (1pt min.). @ -Chest x-ray was obtained and was interpreted by myself showing no acute process. CT interpreted by me (1pt min.). @ -None done U/S interpreted by me (1pt. min.). @ -None done What testing was considered but not performed or refused? (CT, X-rays, U/S, labs)? Why? @ -None What meds were considered but not given or refused? Why? @ -None Did you discuss the management of the patient with other professionals (professionals i.e. , PA, PUNCH PRESS SETTER, lab, RT, psych nurse, geriatric social work professor, nature photographer, teacher, army officer, telephonic nurse case manager)? Give summary @ -No Was smoking cessation discussed for >3mins.? @ -No Was critical care preformed (if so, how long)? @ -No Were there social determinants of health that impacted care today? How? (Homelessness, low income, unemployed, alcoholism, drug addiction, transportation, low edu. Level, literacy, decrease access to med. care, usp, rehab)? @ -No Was there de-escalation of care discussed even if they declined (Discuss DNR or withdrawal of care, Hospice)? DNR status @ -No What co-morbidities impacted this encounter? (DM, HTN, Smoking, COPD, CAD, Can cer, CVA, ARF, Chemo, Hep., AIDS, mental health diagnosis, sleep apnea, morbid obesity)? @ -Hypertension, diabetes, congestive heart failure status post defibrillator, COPD Was patient admitted / discharged? Hospital course, mention meds given and route, prescriptions, significant lab abnormalities, going to OR and other pertinent info. @ -The patient was seen and evaluated in emergency department. Physical exam, the patient was resting in bed without any acute distress. Vital signs admission were stable. Due to the nature the patient's complaints in the setting of reproducible pain on the right lateral aspect of the right pectoralis muscle, the patient did not require any further intervention at this time. The patient received Toradol for his discomfort and was stable for discharge home. The patient was advised that this chest wall muscle strain to be followed up by his very care physician for further workup and evaluation. The patient was agreeable to this and all his questions were answered appropriately. The patient was discharged home in stable condition. Undiagnosed new problem with uncertain prognosis? @ -No Drug Therapy requiring intensive monitoring for toxicity (Heparin, Nitro, Insulin, Cardizem)? @ -No Were any procedures done? @ -No Diagnosis/symptom? @ -Right chest wall muscle strain Acute, or Chronic, or Acute on Chronic? @ -Acute Uncomplicated (without systemic symptoms) or Complicated (systemic symptoms)? @ -Uncomplicated Side effects of treatment? @ -No Exacerbation, Progression, or Severe Exacerbation? @ -No Poses a threat to life or bodily function? How? (Chest pain, USA, IA, pneumonia, PE, COPD, DKA, ARF, appy, cholecystitis, CVA, Diverticulitis, Homicidal, Suicidal, threat to staff... and all critical care pts) @ -No - Lab Data Result diagrams: 03/03/23 12:57 03/03/23 12:57 Lab Results 03/03/23 03/03/23 03/03/23 Range/Units 12:57 12:57 12:57 WBC 6.0 (3.8-10.6) k/uL RBC 5.01 (4.30-5.90) m/uL Hgb 14.0 (13.0-17.5) gm/dL Hct 43.5 (39.0-53.0) % MCV 86.8 (80.0-100.0) fL MCH 28.0 (25.0-35.0) pg MCHC 32.3 (31.0-37.0) g/dL RDW 15.9 H (11.5-15.5) % Plt Count 177 (150-450) k/uL MPV 7.3 Neutrophils % 63 % Lymphocytes % 24 % Monocytes % 6 % Eosinophils % 5 % Basophils % 1 % Neutrophils # 3.8 (1.3-7.7) k/uL Lymphocytes # 1.4 (1.0-4.8) k/uL Monocytes # 0.3 (0-1.0) k/uL Eosinophils # 0.3 (0-0.7) k/uL Basophils # 0.0 (0-0.2) k/uL PT 10.8 (9.0-12.0) sec INR 1.0 (<1.2) APTT 24.5 (22.0-30.0) sec Sodium 139 (137-145) mmol/L Potassium 5.1 (3.5-5.1) mmol/L Chloride 109 H (98-107) mmol/L Carbon Dioxide 23 (22-30) mmol/L Anion Gap 7 mmol/L BUN 34 H (9-20) mg/dL Creatinine 1.13 (0.66-1.25) mg/dL Est GFR (CKD-EPI)AfAm 78 (>60 ml/min/1.73 sqM) Est GFR (CKD-EPI)NonAf 67 (>60 ml/min/1.73 sqM) Glucose 99 (74-99) mg/dL Calcium 9.0 (8.4-10.2) mg/dL Magnesium 2.2 (1.6-2.3) mg/dL Total Bilirubin 0.9 (0.2-1.3) mg/dL AST 28 (17-59) U/L ALT 26 (4-49) U/L Alkaline Phosphatase 81 (38-126) U/L Troponin I (0.000-0.034) ng/mL NT-Pro-B Natriuret Pep 595 pg/mL Total Protein 7.0 (6.3-8.2) g/dL Albumin 4.1 (3.5-5.0) g/dL 03/03/23 Range/Units 12:57 WBC (3.8-10.6) k/uL RBC (4.30-5.90) m/uL Hgb (13.0-17.5) gm/dL Hct (39.0-53.0) % MCV (80.0-100.0) fL MCH (25.0-35.0) pg MCHC (31.0-37.0) g/dL RDW (11.5-15.5) % Plt Count (150-450) k/uL MPV Neutrophils % % Lymphocytes % % Monocytes % % Eosinophils % % Basophils % % Neutrophils # (1.3-7.7) k/uL Lymphocytes # (1.0-4.8) k/uL Monocytes # (0-1.0) k/uL Eosinophils # (0-0.7) k/uL Basophils # (0-0.2) k/uL PT (9.0-12.0) sec INR (<1.2) APTT (22.0-30.0) sec Sodium (137-145) mmol/L Potassium (3.5-5.1) mmol/L Chloride (98-107) mmol/L Carbon Dioxide (22-30) mmol/L Anion Gap mmol/L BUN (9-20) mg/dL Creatinine (0.66-1.25) mg/dL Est GFR (CKD-EPI)AfAm (>60 ml/min/1.73 sqM) Est GFR (CKD-EPI)NonAf (>60 ml/min/1.73 sqM) Glucose (74-99) mg/dL Calcium (8.4-10.2) mg/dL Magnesium (1.6-2.3) mg/dL Total Bilirubin (0.2-1.3) mg/dL AST (17-59) U/L ALT (4-49) U/L Alkaline Phosphatase (38-126) U/L Troponin I <0.012 (0.000-0.034) ng/mL NT-Pro-B Natriuret Pep pg/mL Total Protein (6.3-8.2) g/dL Albumin (3.5-5.0) g/dL Disposition Clinical Impression: Chest wall muscle strain Disposition: HOME SELF-CARE Condition: Stable Instructions (If sedation given, give patient instructions): Muscle Strain (DC) Is patient prescribed a controlled substance at d/c from ED?: No Referrals: None,Stated [Primary Care Provider] - 1-2 days Time of Disposition: 15:45
[2023-03-03 16:31] VITALS: BP 152/91; PULSE 75; RESP 18
== END 2023-03-03 16:30 | disposition home or self-care (01) ==
LOC: EC 12:29
DX: S29.011A Strain of muscle and tendon of front wall of thorax, initial encounter (principal); E11.9 Type 2 diabetes mellitus without complications; I11.0 Hypertensive heart disease with heart failure; I50.9 Heart failure, unspecified; J44.9 Chronic obstructive pulmonary disease, unspecified; E66.9 Obesity, unspecified; F17.200 Nicotine dependence, unspecified, uncomplicated; F12.90 Cannabis use, unspecified, uncomplicated; Z79.01 Long term (current) use of anticoagulants; Z79.899 Other long term (current) drug therapy; Z68.33 Body mass index [BMI] 33.0-33.9, adult; X58.XXXA Exposure to other specified factors, initial encounter
CPT/HCPCS: 99285; 96372; 36415; 93005; 83880; 80053; 83735; 84484; 85025; 85610; 85730; 71046; J1885

== ENCOUNTER → 2023-03-11 | Outpatient (CLI) | payer MEDICARE, OTHER ==
--- NOTE | 2023-03-11 10:45 | XR ---
EXAMINATION TYPE: XR cervical spine w flex/ext DATE OF EXAM: 03/11/2023 10:23 AM INDICATION: Patient age:Male; 67 years old; Reason for study: M47.12 OTHER SPONDYLOSIS WITH MYELOPATHY, CERVICAL; PHH. COMPARISON: None TECHNIQUE: The cervical spine was imaged in frontal, lateral, odontoid and bilateral oblique. Additio nal flexion and extension views. FINDINGS: The osseous structures show Mild grade 1 anterolisthesis of C3 on C4 and C4 on C5 alinement without evidence of an acute fracture. There are small osteophytes noted throughout the cer vical spine on the anterior and lateral aspects of the vertebral bodies. The intervertebral disk spac es are narrowed at multiple levels. Pedicles are intact. Soft tissues are within normal limits. The odontoid appears intact. No abnormal alignment on extension and flexion views. Mild grade 1 anterolisthesis of C3 on C4 and C4 on C5. Mild neural foraminal stenosis at C2-C3 secondary to facet joint uncovertebral joint arthropathy. IMPRESSION: 1. No fracture or dislocation. 2. Mild degenerative disc disease changes of the cervical spine. 3. Mild grade 1 anterolisthesis of C3 on C4 and C4 on C5.
== END | disposition home or self-care (01) ==
LOC: RADXRMAIN 09:15
PROVIDERS: ATTEND Internal Medicine
DX: M47.12 Other spondylosis with myelopathy, cervical region (principal); M43.12 Spondylolisthesis, cervical region; M50.00 Cervical disc disorder with myelopathy, unspecified cervical region
CPT/HCPCS: 72052

== ENCOUNTER 2023-03-24 20:09 | Emergency (ER) | payer MEDICARE, OTHER ==
[2023-03-24 20:14] VITALS: TEMP 97.7
[2023-03-24 20:21] VITALS: RESP 20
--- NOTE | 2023-03-24 20:40 | ED ---
Chest Pain HPI - General Chief Complaint: Chest Pain Stated Complaint: Chest Pain,Sob Time Seen by Provider: 03/24/23 20:38 Source: patient, RN notes reviewed, old records reviewed Mode of arrival: wheelchair Limitations: no limitations - History of Present Illness Initial Comments: This is a 67-year-old male to the ER today. Presents today for evaluation of chest pain. Patient has had persistent chest pain here in the emergency department and throughout the day while working outside at home. Patient states he feels like his in his back into his shoulders and is anterior chest. No traumatic injury no recent fevers cough or congestion no current shortness of breath. The pain persisted throughout the day and his sister's was helping present history bedside mandated hospital admission and evaluation. Patient does have high blood pressure history MD Complaint: chest pain -: hour(s) Onset: during rest, during exertion Pain Location: substernal, left chest, right chest Pain Radiation: back Severity: moderate Severity scale (1-10): 5 Quality: aching Consistency: constant Improves With: nothing Worsens With: nothing Treatments Prior to Arrival: none - Related Data Home Medications Medication Instructions Recorded Confirmed Apixaban [Eliquis] 5 mg PO BID 10/31/22 03/24/23 Albuterol Inhaler [Ventolin Hfa 2 puff INHALATION RT-Q6H PRN 03/24/23 03/24/23 Inhaler] Baclofen [Lioresal] 10 mg PO BID PRN 03/24/23 03/24/23 Omeprazole 20 mg PO DAILY 03/24/23 03/24/23 Sacubitril/Valsartan [Entresto 24 1 tab PO BID 03/24/23 03/24/23 mg-26 mg Tablet] Spironolactone [Aldactone] 12.5 mg PO HS 03/24/23 03/24/23 Previous Rx's Medication Instructions Recorded Amiodarone [Cordarone] 200 mg PO DAILY #30 tab 11/01/22 Atorvastatin [Lipitor] 20 mg PO HS #30 tab 11/01/22 carvediloL [Coreg] 6.25 mg PO BID #60 tab 11/01/22 Allergies Allergy/AdvReac Type Severity Reaction Status Date / Time No Known Allergies Allergy Verified 03/24/23 21:35 Review of Systems ROS Statement: Those systems with pertinent positive or pertinent negative responses have been documented in the HPI. ROS Other: All systems not noted in ROS Statement are negative. EKG Findings - EKG Comments: EKG Findings:: EKG is sinus 72 AL 158 QRS 134 QTc 442 Past Medical History Past Medical History: Coronary Artery Disease (CAD), COPD, Myocardial Infarction ([place]) Additional Past Medical History / Comment(s): CHF History of Any Multi-Drug Resistant Organisms: None Reported Past Surgical History: Hernia Repair Additional Past Surgical History / Comment(s): hernia repair Past Anesthesia/Blood Transfusion Reactions: No Reported Reaction Type of Cardiac Device: AICD Device Placement Date:: 2016 Past Psychological History: No Psychological Hx Reported Smoking Status: Current every day smoker Past Alcohol Use History: None Reported Past Drug Use History: Marijuana General Exam Limitations: no limitations General appearance: alert, in no apparent distress, anxious Head exam: Present: atraumatic, normocephalic, normal inspection Eye exam: Present: normal appearance, PERRL, EOMI. Absent: scleral icterus, conjunctival injection, periorbital swelling ENT exam: Present: normal exam, mucous membranes moist Neck exam: Present: normal inspection. Absent: tenderness, meningismus, lymphadenopathy Respiratory exam: Present: normal lung sounds bilaterally. Absent: respiratory distress, wheezes, rales, rhonchi, stridor Cardiovascular Exam: Present: regular rate, normal rhythm, normal heart sounds. Absent: systolic murmur, diastolic murmur, rubs, gallop, clicks GI/Abdominal exam: Present: soft, normal bowel sounds. Absent: distended, tenderness, guarding, rebound, rigid Extremities exam: Present: normal inspection, full ROM, normal capillary refill. Absent: tenderness, pedal edema, joint swelling, calf tenderness Back exam: Present: normal inspection Neurological exam: Present: alert, oriented X3, CN II-XII intact Psychiatric exam: Present: normal affect, normal mood Skin exam: Present: warm, dry, intact, normal color. Absent: rash Course Vital Signs 03/24/23 03/24/23 03/24/23 20:11 20:20 21:09 Temperature 97.7 F Pulse Rate 77 70 72 Respiratory 24 20 Rate Blood Pressure 186/119 O2 Sat by Pulse 99 Oximetry 03/24/23 03/24/23 03/24/23 21:24 21:25 22:12 Temperature Pulse Rate 78 71 71 Respiratory 20 20 Rate Blood Pressure 178/107 161/91 O2 Sat by Pulse 97 97 Oximetry 03/24/23 22:45 Temperature Pulse Rate 78 Respiratory 20 Rate Blood Pressure 142/95 O2 Sat by Pulse 97 Oximetry - Reevaluation(s) Reevaluation #1: 03/24/23 22:57 Medical record is reviewed Reevaluation #2: 03/24/23 22:57 Patient does states chest pain is improved no shortness of breath Reevaluation #3: 03/24/23 22:58 Patient informed results questions answered Studies Chest x-ray negative for acute disease interpreted by me CT angios chest negative for acute disease interpreted by me Reevaluation #4: 03/24/23 22:58 Was pt. sent in by a medical professional or institution (CLAYTON Mcgowan, BEHAVIORAL SCIENTIST, urgent care, hospital, or residential...) When possible be specific @ -no Did you speak to anyone other than the patient for history (EMS, parent, family, police, friend...)? What history was obtained from this source @ -no Did you review nursing and triage notes (agree or disagree)? Why? @ -agree Are old charts reviewed (outside hosp., previous admission, EMS record, old EKG, old radiological studies, urgent care reports/EKG's, residential records)? Report findings @ -yes Differential Diagnosis (chest pain, altered mental status, abdominal pain women, abdominal pain men, vaginal bleeding, weakness, fever, dyspnea, syncope, headache, dizziness, GI bleed, back pain, seizure, CVA, palpatations, mental health, musculoskeletal)? @ -prior EKG interpreted by me (3pts min.). @ -yes X-rays interpreted by me (1pt min.). @ -yes CT interpreted by me (1pt min.). @ -yes U/S interpreted by me (1pt. min.). @ -no What testing was considered but not performed or refused? (CT, X-rays, U/S, labs)? Why? @ -none What meds were considered but not given or refused? Why? @ -none Did you discuss the management of the patient with other professionals (professionals i.e. CLAYTON Mcgowan, BEHAVIORAL SCIENTIST, lab, RT, psych nurse, social services specialist, rug sample beveler, teacher, business development officer, sample case porter)? Give summary @ -no Was smoking cessation discussed for >3mins.? @ -no Was critical care preformed (if so, how long)? @ -no Were there social determinants of health that impacted care today? How? (Homelessness, low income, unemployed, alcoholism, drug addiction, transportation, low edu. Level, literacy, decrease access to med. care, long-term, rehab)? @ -none Was there de-escalation of care discussed even if they declined (Discuss DNR or withdrawal of care, Hospice)? DNR status @ -no What co-morbidities impacted this encounter? (DM, HTN, Smoking, COPD, CAD, Cancer, CVA, ARF, Chemo, Hep., AIDS, mental health diagnosis, sleep apnea, morbid obesity)? @ -none Was patient admitted / discharged? Hospital course, mention meds given and route, prescriptions, significant lab abnormalities, going to OR and other pertinent info. @ - 67 male to the emergency department for evaluation patient presents today for evaluation regards to chest pain. Ration does state that he would not have come the hospital to wasn't for his sister's who is currently sitting at bedside. Patient symptoms are improved here in the ER. Patient pain is improved is no shortness of breath or other complaint. Patient feels well for discharge home Discharge Undiagnosed new problem with uncertain prognosis? @ -no Drug Therapy requiring intensive monitoring for toxicity (Heparin, Nitro, Insulin, Cardizem)? @ -no Were any procedures done? @ -no Diagnosis/symptom? @ -Chest pain Acute, or Chronic, or Acute on Chronic? @ -Acute Uncomplicated (without systemic symptoms) or Complicated (systemic symptoms)? @ -Complicated Side effects of treatment? @ -no Exacerbation, Progression, or Severe Exacerbation? @ -exacerbation Poses a threat to life or bodily function? How? (Chest pain, [place], [place], pneumonia, PE, COPD, DKA, ARF, appy, cholecystitis, CVA, Diverticulitis, Homicidal, Suicidal, threat to staff... and all critical care pts) @ -yes chest pain with ACS Reevaluation #5: 03/24/23 22:58 Differential Chest Pain: Stable Angina, Unstable Angina, STEMI, NSTEMI Aortic Dissection, Pneumothorax, Musculoskeletal, Esophageal Spasm GERD, Cholecystitis, Pancreatitis, Zoster, this is not meant to be an all-inclusive list. Chest Pain MDM - MDM 67 male to the emergency department for evaluation patient presents today for evaluation regards to chest pain. Ration does state that he would not have come the hospital to wasn't for his sister's who is currently sitting at bedside. Patient symptoms are improved here in the ER. Patient pain is improved is no shortness of breath or other complaint. Patient feels well for discharge home Disposition Clinical Impression: Atypical chest pain, Chest pain, Chest wall muscle strain Disposition: HOME SELF-CARE Condition: Good Instructions (If sedation given, give patient instructions): Chest Pain (ED), Costochondritis (ED) Is patient prescribed a controlled substance at d/c from ED?: No Referrals: None,Stated [REFERRING] - 1-2 days Time of Disposition: 23:00
[2023-03-24] MEDS ORDERED: SODIUM CHLORIDE 0.9% 1,000 ML IV STA (20:48)
[2023-03-24] MEDS ORDERED: IPRATROPIUM-ALBUTEROL 3 ML NEB INHALATION STA (20:49)
[2023-03-24 21:04] LABS: Basophils % (A) 0 %; Eosinophils # (A) 0.3 k/uL (0-0.7); Eosinophils % (A) 4 %; HCT 41.6 % (39.0-53.0); HGB 13.2 gm/dL (13.0-17.5); Lymphocytes # (A) 1.3 k/uL (1.0-4.8); Lymphocytes % (A) 18 %; MCH 28.1 pg (25.0-35.0); MCHC 31.7 g/dL (31.0-37.0); MCV 88.7 fL (80.0-100.0); Mean Platelet Volume 7.4; Monocytes # (A) 0.6 k/uL (0-1.0); Monocytes % (A) 8 %; Neutrophils # (A) 4.9 k/uL (1.3-7.7); Neutrophils % (A) 68 %; Platelet Count 159 k/uL (150-450); RBC 4.69 m/uL (4.30-5.90); RDW 15.9 % (11.5-15.5); WBC 7.2 k/uL (3.8-10.6)
[2023-03-24 21:11] LABS: ALT 28 U/L (4-49); AST 24 U/L (17-59); African American GFR (CKD) 44 (>60 ml/min/1.73 sqM); Albumin 4.1 g/dL (3.5-5.0); Alkaline Phosphatase 81 U/L (38-126); Anion Gap 8 mmol/L; Blood Urea Nitrogen 38 mg/dL (9-20); Calcium 8.6 mg/dL (8.4-10.2); Carbon Dioxide 22 mmol/L (22-30); Chloride 112 mmol/L (98-107); Glucose 103 mg/dL (74-99); Lipase 160 U/L (23-300); Magnesium 2.1 mg/dL (1.6-2.3); Non-African American GFR(CKD) 38 (>60 ml/min/1.73 sqM); Potassium 4.7 mmol/L (3.5-5.1); Sodium 142 mmol/L (137-145); Total Bilirubin 0.4 mg/dL (0.2-1.3)
[2023-03-24 21:19] LABS: NT-Pro-B-Type Natriuretic Pept 378 pg/mL
[2023-03-24 21:22] LABS: Partial Thromboplastin Time 24.6 sec (22.0-30.0); Prothrombin Time 10.5 sec (9.0-12.0)
--- NOTE | 2023-03-24 21:35 | XR ---
EXAMINATION TYPE: XR chest 1V portable DATE OF EXAM: 03/24/2023 9:02 PM COMPARISON: Chest radiographs from 03/03/2023 TECHNIQUE: XR chest 1V portable Frontal view of the chest. CLINICAL INDICATION:Male, 67 years old with history of chest pain; FINDINGS: Lungs/Pleura: There is no evidence of pleural effusion, focal consolidation, or pneumothorax. Pulmonary vascularity: Unremarkable. Heart/mediastinum: Cardiomediastinal silhouette is unremarkable. Single-lead cardiac conduction devic e overlying the left hemithorax with lead projecting over the right ventricle. Musculoskeletal: No acute osseous pathology. IMPRESSION: No acute cardiopulmonary disease/process.
[2023-03-24] MEDS ORDERED: MORPHINE SULFATE 4 MG/ML SYRINGE IVP STA (21:51)
--- NOTE | 2023-03-24 22:17 | CT ---
EXAM: CT Angiography Chest With Intravenous Contrast CLINICAL HISTORY: ITS.REASON CT Reason: cp TECHNIQUE: Axial computed tomographic angiography images of the chest with intravenous contrast. CTDI is 16 mGy and DLP is 713.4 mGy-cm. This CT exam was performed using one or more of the following dose reduction techniques: automated exposure control, adjustment of the mA and/or kV according to patient size, and/or use of iterative reconstruction technique. MIP reconstructed images were created and reviewed. COMPARISON: No relevant prior studies available. FINDINGS: Pulmonary arteries: Unremarkable. No acute pulmonary embolism. Aorta: No acute findings. No thoracic aortic aneurysm. Lungs: Unremarkable. No mass. No consolidation. Pleural space: Unremarkable. No focal infiltrate, pleural effusion, or pneumothorax. Heart: Mild cardiomegaly. No significant pericardial effusion. No evidence of RV dysfunction. Mediastinum: Small hiatal hernia. Bones/joints: Degenerative changes of the spine. No acute fracture. No dislocation. Soft tissues: Unremarkable. Lymph nodes: Unremarkable. No enlarged lymph nodes. Liver: Hepatic low attenuation cystic lesion measures 12 mm, too small to characterize. Tubes, lines and devices: Pacemaker leads. IMPRESSION: 1. No acute pulmonary embolism. 2. No focal infiltrate, pleural effusion, or pneumothorax.
[2023-03-24 22:56] VITALS: BP 142/95; PULSE 78
== END 2023-03-24 22:56 | disposition home or self-care (01) ==
LOC: EC 20:09
DX: S29.011A Strain of muscle and tendon of front wall of thorax, initial encounter (principal); I25.10 Atherosclerotic heart disease of native coronary artery without angina pectoris; I25.2 Old myocardial infarction; J44.9 Chronic obstructive pulmonary disease, unspecified; I50.9 Heart failure, unspecified; F17.200 Nicotine dependence, unspecified, uncomplicated; F12.90 Cannabis use, unspecified, uncomplicated; Z79.01 Long term (current) use of anticoagulants; Z79.899 Other long term (current) drug therapy; X58.XXXA Exposure to other specified factors, initial encounter
CPT/HCPCS: 36415; 94640; 93005; 85379; 83880; 80053; 83690; 83735; 84484; 85025; 85610; 85730; 71045; 71275; 99285; 96374; 96361 ×2; J2270; Q9967

== ENCOUNTER 2023-11-07 07:11 | Emergency (ER) | payer MEDICARE, OTHER ==
--- NOTE | 2023-11-07 07:53 | ED ---
General Adult HPI - General Stated complaint: Time Seen by Provider: 11/07/23 07:15 Source: patient, EMS, RN notes reviewed, old records reviewed Mode of arrival: EMS Limitations: no limitations - History of Present Illness Initial comments: This is a 68-year-old male who has a past medical history significant for defibrillator pacemaker. Patient states he is never had a heart attack. Patient states he does have COPD and was a smoker up until 1 year ago. Patient states over the last couple of months he has been having episodes where he wakes up in the morning and cannot catch his breath but within a minute he is able to catch his breath but not before he panics quite a bit. Patient currently states he has no difficulty breathing. Patient denies any fever chills or cough. Patient denies any chest pain or palpitations. Patient has any back pain. Patient states currently he is asymptomatic. Patient states this happens every once in a while he does have reflux. Patient states when it happens he cannot get any air to move at all it is like his throat is closed off and within a minute he is opened up and is able to breathe and within a couple minutes he is back to normal. Patient states this has happened many times over the last couple of months and when the difficulty breathing subsides typically less than a minute he does not have it occur again for a while. Patient does state he ate quite a bit very late prior to going to bed - Related Data Home Medications Medication Instructions Recorded Confirmed Apixaban [Eliquis] 5 mg PO BID 10/31/22 03/24/23 Albuterol Inhaler [Ventolin Hfa 2 puff INHALATION RT-Q6H PRN 03/24/23 03/24/23 Inhaler] Baclofen [Lioresal] 10 mg PO BID PRN 03/24/23 03/24/23 Omeprazole 20 mg PO DAILY 03/24/23 03/24/23 Sacubitril/Valsartan [Entresto 24 1 tab PO BID 03/24/23 03/24/23 mg-26 mg Tablet] Spironolactone [Aldactone] 12.5 mg PO HS 03/24/23 03/24/23 Previous Rx's Medication Instructions Recorded Amiodarone [Cordarone] 200 mg PO DAILY #30 tab 11/01/22 Atorvastatin [Lipitor] 20 mg PO HS #30 tab 11/01/22 carvediloL [Coreg] 6.25 mg PO BID #60 tab 11/01/22 Allergies Allergy/AdvReac Type Severity Reaction Status Date / Time No Known Allergies Allergy Verified 03/24/23 21:35 Review of Systems ROS Statement: Those systems with pertinent positive or pertinent negative responses have been documented in the HPI. ROS Other: All systems not noted in ROS Statement are negative. Past Medical History Past Medical History: Coronary Artery Disease (CAD), COPD, Myocardial Infarction ([place]) Additional Past Medical History / Comment(s): CHF History of Any Multi-Drug Resistant Organisms: None Reported Past Surgical History: AICD, Hernia Repair, Pacemaker Additional Past Surgical History / Comment(s): hernia repair Past Anesthesia/Blood Transfusion Reactions: No Reported Reaction Type of Cardiac Device: AICD Device Placement Date:: 2016 Past Psychological History: No Psychological Hx Reported Smoking Status: Former smoker Past Alcohol Use History: None Reported Past Drug Use History: Marijuana General Exam - General Exam Comments Initial Comments: GENERAL: Patient is well-developed and well-nourished. Patient is nontoxic and well- hydrated and is in no acute distress. ENT: Neck is soft and supple. No significant lymphadenopathy is noted. Oropharynx is clear. Moist mucous membranes. Neck has full range of motion without vel citing any pain. EYES: The sclera were anicteric and conjunctiva were pink and moist. Extraocular movements were intact and pupils were equal round and reactive to light. Eyelids were unremarkable. PULMONARY: Unlabored respirations. Good breath sounds bilaterally. No audible rales rhonchi or wheezing was noted. CARDIOVASCULAR: There is a regular rate and rhythm without any murmurs gallops or rubs. ABDOMEN: Soft and nontender with normal bowel sounds. SKIN: Skin is clear with no lesions or rashes and otherwise unremarkable. NEUROLOGIC: Patient is alert and oriented x3. Cranial nerves II through XII are grossly intact. Motor and sensory are also intact. Normal speech, volume and content. Symmetrical smile. MUSCULOSKELETAL: Normal extremities with adequate strength and full range of motion. LYMPHATICS: No significant lymphadenopathy is noted PSYCHIATRIC: Normal psychiatric evaluation. Limitations: no limitations Course Vital Signs 11/07/23 11/07/23 11/07/23 07:23 07:38 08:39 Temperature 97.6 F Pulse Rate 102 H 102 H Respiratory 20 20 Rate Blood Pressure 135/75 O2 Sat by Pulse 94 L Oximetry 11/07/23 08:48 Temperature Pulse Rate 100 Respiratory Rate Blood Pressure O2 Sat by Pulse Oximetry Medical Decision Making - Medical Decision Making EKG is interpreted by myself but EKG shows a sinus rhythm with occasional PVCs at 93 bpm parables 166 QRS is 135 QT interval is 414 QTc is 465. Patient's EKG shows no ST segment elevation Was pt. sent in by a medical professional or institution (, PA, RICE FARMER, urgent care, hospital, or [place] [facility] facility...) When possible be specific @ -No Did you speak to anyone other than the patient for history (EMS, parent, family, police, friend...)? What history was obtained from this source @ -No Did you review nursing and triage notes (agree or disagree)? Why? @ -I reviewed and agree with nursing and triage notes Were old charts reviewed (outside hosp., previous admission, EMS record, old EKG, old radiological studies, urgent care reports/EKG's, [place] [facility] records)? Report findings @ -I reviewed prior radiological studies and saw no abnormality compared to the old study. I compared to old labs and old charts on this patient Differential Diagnosis (chest pain, altered mental status, abdominal pain women, abdominal pain men, vaginal bleeding, weakness, fever, dyspnea, syncope, headache, dizziness, GI bleed, back pain, seizure, CVA, palpatations, mental health, musculoskeletal)? @ -Differential Dyspnea: Coronary syndrome, arrhythmia, tamponade, asthma, COPD, pulmonary embolism, pneumonia, pneumothorax, pulmonary effusion, anaphylaxis, diabetic ketoacidosis, flailed chest, pulmonary contusion, diaphragmatic rupture, anemia, neuromuscular, this is not meant to be an all-inclusive list. EKG interpreted by me (3pts min.). @ -As above X-rays interpreted by me (1pt min.). @ -Chest x-ray showed no acute abnormality CT interpreted by me (1pt min.). @ -None done U/S interpreted by me (1pt. min.). @ -None done What testing was considered but not performed or refused? (CT, X-rays, U/S, labs)? Why? @ -None What meds were considered but not given or refused? Why? @ -None Did you discuss the management of the patient with other professionals (professionals i.e. , PA, RICE FARMER, lab, RT, psych nurse, director social service, cookie breaker, teacher, postal sorting officer, employment case manager)? Give summary @ -No Was smoking cessation discussed for >3mins.? @ -No Was critical care preformed (if so, how long)? @ -No Were there social determinants of health that impacted care today? How? (Homelessness, low income, unemployed, alcoholism, drug addiction, tra nsportation, low edu. Level, literacy, decrease access to med. care, penitentiary, rehab)? @ -No Was there de-escalation of care discussed even if they declined (Discuss DNR or withdrawal of care, Hospice)? DNR status @ -No What co-morbidities impacted this encounter? (DM, HTN, Smoking, COPD, CAD, Cancer, CVA, ARF, Chemo, Hep., AIDS, mental health diagnosis, sleep apnea, morbid obesity)? @ -None Was patient admitted / discharged? Hospital course, mention meds given and route, prescriptions, significant lab abnormalities, going to OR and other pertinent info. @ -After patient's lab work came back I went in and spoke with the patient patient states he has been asymptomatic since the event occurred and the event lasted less than 1 minute. Patient states he never had any chest pain or back pain. Patient states he never had any pain at all. Patient states he just feels like his throat is closed off for less than a minute and slowly releases and that he is able to breathe again. I suggested to the patient he might be having some gastric reflux which is giving him some vocal cord spasms and he agreed that he would start taking Prilosec twice a day and not eating so close to bedtime as well as elevating his head at night when he sleeps. Patient agrees she will call Dr. Campos today Undiagnosed new problem with uncertain prognosis? @ -No Drug Therapy requiring intensive monitoring for toxicity (Heparin, Nitro, Insulin, Cardizem)? @ -No Were any procedures done? @ -No Diagnosis/symptom? @ -Transient dyspnea Acute, or Chronic, or Acute on Chronic? @ -Acute Uncomplicated (without systemic symptoms) or Complicated (systemic symptoms)? @ -Complicated Side effects of treatment? @ -No Exacerbation, Progression, or Severe Exacerbation? @ -No Poses a threat to life or bodily function? How? (Chest pain, [place], [place], pneumonia, PE, COPD, DKA, ARF, appy, cholecystitis, CVA, Diverticulitis, Homicidal, Suicidal, threat to staff... and all critical care pts) @ -No Diagnosis/symptom? @ -GERD Acute, or Chronic, or Acute on Chronic? @ -Acute Uncomplicated (without systemic symptoms) or Complicated (systemic symptoms)? @ -Uncomplicated Side effects of treatment? @ -None Exacerbation, Progression, or Severe Exacerbation] @ -No Poses a threat to life or bodily function? @ -No - Lab Data Result diagrams: 11/07/23 07:51 11/07/23 07:51 Lab Results 11/07/23 11/07/23 11/07/23 Range/Units 07:51 07:51 07:51 WBC 8.4 (3.8-10.6) k/uL RBC 5.08 (4.30-5.90) m/uL Hgb 13.9 (13.0-17.5) gm/dL Hct 43.9 (39.0-53.0) % MCV 86.4 (80.0-100.0) fL MCH 27.3 (25.0-35.0) pg MCHC 31.6 (31.0-37.0) g/dL RDW 15.0 (11.5-15.5) % Plt Count 203 (150-450) k/uL MPV 7.9 Neutrophils % 68 % Lymphocytes % 20 % Monocytes % 7 % Eosinophils % 3 % Basophils % 1 % Neutrophils # 5.8 (1.3-7.7) k/uL Lymphocytes # 1.7 (1.0-4.8) k/uL Monocytes # 0.6 (0-1.0) k/uL Eosinophils # 0.2 (0-0.7) k/uL Basophils # 0.0 (0-0.2) k/uL PT 12.0 (10.0-12.5) sec INR 1.1 (<1.2) APTT 25.2 (22.0-30.0) sec D-Dimer 0.38 (<0.60) mg/L FEU Sodium 140 (137-145) mmol/L Potassium 3.7 (3.5-5.1) mmol/L Chloride 107 (98-107) mmol/L Carbon Dioxide 23 (22-30) mmol/L Anion Gap 10 mmol/L BUN 46 H (9-20) mg/dL Creatinine 1.24 (0.66-1.25) mg/dL Est GFR (CKD-EPI)AfAm 69 (>60 ml/min/1.73 sqM) Est GFR (CKD-EPI)NonAf 60 (>60 ml/min/1.73 sqM) Glucose 147 H (74-99) mg/dL Plasma Lactic Acid Shawn (0.7-2.0) mmol/L Calcium 9.2 (8.4-10.2) mg/dL Magnesium 2.2 (1.6-2.3) mg/dL Total Bilirubin 0.8 (0.2-1.3) mg/dL AST 30 (17-59) U/L ALT 42 (4-49) U/L Alkaline Phosphatase 83 (38-126) U/L Troponin I (0.000-0.034) ng/mL NT-Pro-B Natriuret Pep 956 pg/mL Total Protein 6.6 (6.3-8.2) g/dL Albumin 3.8 (3.5-5.0) g/dL 11/07/23 11/07/23 Range/Units 07:51 07:51 WBC (3.8-10.6) k/uL RBC (4.30-5.90) m/uL Hgb (13.0-17.5) gm/dL Hct (39.0-53.0) % MCV (80.0-100.0) fL MCH (25.0-35.0) pg MCHC (31.0-37.0) g/dL RDW (11.5-15.5) % Plt Count (150-450) k/uL MPV Neutrophils % % Lymphocytes % % Monocytes % % Eosinophils % % Basophils % % Neutrophils # (1.3-7.7) k/uL Lymphocytes # (1.0-4.8) k/uL Monocytes # (0-1.0) k/uL Eosinophils # (0-0.7) k/uL Basophils # (0-0.2) k/uL PT (10.0-12.5) sec INR (<1.2) APTT (22.0-30.0) sec D-Dimer (<0.60) mg/L FEU Sodium (137-145) mmol/L Potassium (3.5-5.1) mmol/L Chloride (98-107) mmol/L Carbon Dioxide (22-30) mmol/L Anion Gap mmol/L BUN (9-20) mg/dL Creatinine (0.66-1.25) mg/dL Est GFR (CKD-EPI)AfAm (>60 ml/min/1.73 sqM) Est GFR (CKD-EPI)NonAf (>60 ml/min/1.73 sqM) Glucose (74-99) mg/dL Plasma Lactic Acid Shawn 1.8 (0.7-2.0) mmol/L Calcium (8.4-10.2) mg/dL Magnesium (1.6-2.3) mg/dL Total Bilirubin (0.2-1.3) mg/dL AST (17-59) U/L ALT (4-49) U/L Alkaline Phosphatase (38-126) U/L Troponin I 0.027 (0.000-0.034) ng/mL NT-Pro-B Natriuret Pep pg/mL Total Protein (6.3-8.2) g/dL Albumin (3.5-5.0) g/dL Disposition Clinical Impression: Dyspnea, unspecified, GERD (gastroesophageal reflux disease) Disposition: HOME SELF-CARE Condition: Good Instructions (If sedation given, give patient instructions): Dyspnea (ED), GERD (Gastroesophageal Reflux Disease) (ED) Additional Instructions: Patient states she will start sleeping with his head elevated slightly. Patient states she will start taking Prilosec twice a day. Patient states she will call Dr. Campos today. Patient also states she will not eat for approximately 3 hours prior to bed Is patient prescribed a controlled substance at d/c from ED?: No Referrals: Angel Luis Campos MD [Primary Care Provider] - 1-2 days Time of Disposition: 09:28
[2023-11-07 07:55] VITALS: TEMP 97.6
[2023-11-07] MEDS: methylPREDNISolone SOD SUCCI 125 MG/2 ML VIAL IV STA (08:07)
[2023-11-07] MEDS: PANTOPRAZOLE 40 MG/10 ML VIAL IVP STA (08:07)
--- NOTE | 2023-11-07 08:12 | XR ---
EXAMINATION TYPE: XR chest 2V DATE OF EXAM: 11/07/2023 COMPARISON: 03/24/2023 HISTORY: Shortness of breath TECHNIQUE: Frontal and lateral views of the chest are obtained. FINDINGS: Scattered senescent parenchymal changes noted. Hyperinflation compatible with COPD. No evidence for infiltrate. No evidence for atelectasis. Heart size is stable. Mediastinal structures are stable and grossly unremarkable. No evidence for hilar prominence. Degenerative changes dorsal spine. IMPRESSION: 1. No evidence for acute pulmonary disease.
[2023-11-07] MEDS: SODIUM CHLORIDE 0.9% 500 ML 500 ML IV STA (08:17)
[2023-11-07 08:19] LABS: ALT 42 U/L (4-49); AST 30 U/L (17-59); African American GFR (CKD) 69 (>60 ml/min/1.73 sqM); Albumin 3.8 g/dL (3.5-5.0); Alkaline Phosphatase 83 U/L (38-126); Anion Gap 10 mmol/L; Blood Urea Nitrogen 46 mg/dL (9-20); Calcium 9.2 mg/dL (8.4-10.2); Carbon Dioxide 23 mmol/L (22-30); Chloride 107 mmol/L (98-107); Glucose 147 mg/dL (74-99); Magnesium 2.2 mg/dL (1.6-2.3); Non-African American GFR(CKD) 60 (>60 ml/min/1.73 sqM); Potassium 3.7 mmol/L (3.5-5.1); Sodium 140 mmol/L (137-145); Total Bilirubin 0.8 mg/dL (0.2-1.3); Total Protein 6.6 g/dL (6.3-8.2)
[2023-11-07 08:25] LABS: INR 1.1 (<1.2); Partial Thromboplastin Time 25.2 sec (22.0-30.0)
[2023-11-07 08:27] LABS: NT-Pro-B-Type Natriuretic Pept 956 pg/mL
[2023-11-07] MEDS: IPRATROPIUM-ALBUTEROL 3 ML NEB INHALATION STA (08:39)
[2023-11-07 08:56] LABS: Basophils % (A) 1 %; Eosinophils # (A) 0.2 k/uL (0-0.7); Eosinophils % (A) 3 %; HCT 43.9 % (39.0-53.0); HGB 13.9 gm/dL (13.0-17.5); Lymphocytes # (A) 1.7 k/uL (1.0-4.8); Lymphocytes % (A) 20 %; MCH 27.3 pg (25.0-35.0); MCHC 31.6 g/dL (31.0-37.0); MCV 86.4 fL (80.0-100.0); Mean Platelet Volume 7.9; Monocytes # (A) 0.6 k/uL (0-1.0); Monocytes % (A) 7 %; Neutrophils # (A) 5.8 k/uL (1.3-7.7); Neutrophils % (A) 68 %; Platelet Count 203 k/uL (150-450); RBC 5.08 m/uL (4.30-5.90); WBC 8.4 k/uL (3.8-10.6)
[2023-11-07 10:03] VITALS: BP 117/83; PULSE 90; RESP 16
== END 2023-11-07 09:58 | disposition home or self-care (01) ==
LOC: EC 07:11
DX: K21.9 Gastro-esophageal reflux disease without esophagitis (principal); R06.00 Dyspnea, unspecified; F12.90 Cannabis use, unspecified, uncomplicated; Z87.891 Personal history of nicotine dependence
CPT/HCPCS: 36415; 94640; 93005; 85379; 83880; 80053; 83605; 83735; 84484; 85025; 85610; 85730; 71046; 99285; 96374; 96375; 96361; J2930; C9113

== ENCOUNTER 2023-11-24 02:51 | Inpatient (IN) | payer MEDICARE, OTHER ==
[2023-11-24] MEDS: ASPIRIN 81 MG PO STA (03:25)
[2023-11-24] MEDS: carvediloL 6.25 MG TAB PO STA ×2 (03:25→11:44)
[2023-11-24 03:41] LABS: INR 1.1 (<1.2); Partial Thromboplastin Time 24.1 sec (22.0-30.0); Prothrombin Time 11.4 sec (10.0-12.5)
[2023-11-24 03:47] LABS: ALT 42 U/L (4-49); AST 29 U/L (17-59); African American GFR (CKD) 70 (>60 ml/min/1.73 sqM); Albumin 3.7 g/dL (3.5-5.0); Alkaline Phosphatase 90 U/L (38-126); Anion Gap 3 mmol/L; Blood Urea Nitrogen 36 mg/dL (9-20); Carbon Dioxide 26 mmol/L (22-30); Chloride 109 mmol/L (98-107); Glucose 103 mg/dL (74-99); Non-African American GFR(CKD) 61 (>60 ml/min/1.73 sqM); Potassium 4.5 mmol/L (3.5-5.1); Sodium 138 mmol/L (137-145); Total Bilirubin 0.7 mg/dL (0.2-1.3); Total Protein 6.5 g/dL (6.3-8.2)
[2023-11-24 03:55] LABS: Basophils % (A) 0 %; Eosinophils # (A) 0.2 k/uL (0-0.7); Eosinophils % (A) 2 %; HCT 43.1 % (39.0-53.0); HGB 13.5 gm/dL (13.0-17.5); Lymphocytes # (A) 1.7 k/uL (1.0-4.8); Lymphocytes % (A) 18 %; MCH 26.9 pg (25.0-35.0); MCHC 31.3 g/dL (31.0-37.0); MCV 85.9 fL (80.0-100.0); Mean Platelet Volume 7.7; Monocytes # (A) 0.6 k/uL (0-1.0); Monocytes % (A) 7 %; Neutrophils # (A) 6.5 k/uL (1.3-7.7); Neutrophils % (A) 71 %; Platelet Count 187 k/uL (150-450); RBC 5.02 m/uL (4.30-5.90); RDW 15.1 % (11.5-15.5); WBC 9.2 k/uL (3.8-10.6)
[2023-11-24 03:56] LABS: NT-Pro-B-Type Natriuretic Pept 2670 pg/mL
--- NOTE | 2023-11-24 04:11 | XR ---
EXAM: XR Chest, 2 Views CLINICAL HISTORY: ITS.REASON XR Reason: difficulty breathing TECHNIQUE: Frontal and lateral views of the chest. COMPARISON: No relevant prior studies available. IMPRESSION: Cardiomegaly. Mild vascular congestion
[2023-11-24 04:25] LABS: Appearance,Urine Clear (Clear); Bilirubin,Urine Negative (Negative); Blood,Urine Negative (Negative); Color,Urine Light Yellow; Glucose,Urine (UA) Negative (Negative); Ketones,Urine Negative (Negative); Leukocyte Esterase,Urine Negative (Negative); Nitrite,Urine Negative (Negative); Protein,Urine Trace (Negative); Specific Gravity,Urine 1.023 (1.001-1.035); Urobilinogen,Urine <2.0 mg/dL (<2.0)
[2023-11-24] MEDS: FUROSEMIDE 10 MG/ML 4 ML VIAL IV STA (04:25)
[2023-11-24] MEDS: METOPROLOL TARTRATE 5 MG/5 ML VIAL IVP SCH (04:59)
[2023-11-24] MEDS ORDERED: NALOXONE 0.4 MG/ML 1 ML VIAL IV PRN (05:29)
[2023-11-24] MEDS ORDERED: ALBUTEROL NEBULIZED 2.5 MG/3 ML INHALATION PRN (05:31)
--- NOTE | 2023-11-24 06:09 | ED ---
General Adult HPI - General Chief complaint: Shortness of Breath Stated complaint: Shortness of breath Time Seen by Provider: 11/24/23 03:05 Source: patient, EMS, RN notes reviewed, old records reviewed Mode of arrival: EMS - History of Present Illness Initial comments: Patient is a 68-year-old male who presents emergency department complaining of shortness of breath. Has been getting worse for the last 1 to 2 weeks. He has noticed worsening lower extremity edema. States no new changes in medications. Has a history of hypertension, A-fib, CHF, COPD. Has an AICD in place. Is on Eliquis. Believes he is still on amiodarone as well as Coreg but did not take h is evening doses yesterday. Denies any obvious chest pain, nausea, vomiting, abdominal pain. Does endorse palpitations. Presents for further evaluation at this time. Denies productive cough. States shortness of breath is worse with laying down flat, exertion. Denies any paroxysmal nocturnal dyspnea. - Related Data Home Medications Medication Instructions Recorded Confirmed Apixaban [Eliquis] 5 mg PO BID 10/31/22 03/24/23 Albuterol Inhaler [Ventolin Hfa 2 puff INHALATION RT-Q6H PRN 03/24/23 03/24/23 Inhaler] Baclofen [Lioresal] 10 mg PO BID PRN 03/24/23 03/24/23 Omeprazole 20 mg PO DAILY 03/24/23 03/24/23 Sacubitril/Valsartan [Entresto 24 1 tab PO BID 03/24/23 03/24/23 mg-26 mg Tablet] Spironolactone [Aldactone] 12.5 mg PO HS 03/24/23 03/24/23 Previous Rx's Medication Instructions Recorded Amiodarone [Cordarone] 200 mg PO DAILY #30 tab 11/01/22 Atorvastatin [Lipitor] 20 mg PO HS #30 tab 11/01/22 carvediloL [Coreg] 6.25 mg PO BID #60 tab 11/01/22 Allergies Allergy/AdvReac Type Severity Reaction Status Date / Time No Known Allergies Allergy Verified 03/24/23 21:35 Review of Systems ROS Statement: Those systems with pertinent positive or pertinent negative responses have been documented in the HPI. Review of Systems: CONST: Denies fever EYES: Denies blurry vision ENT: Denies nasal congestion C/V: Denies Chest pain RESP: Endorses shortness of breath GI: Denies abdominal pain : Denies dysuria SKIN: Denies rash. MSK: Denies joint pain. NEURO: Denies headache ROS Other: All systems not noted in ROS Statement are negative. Past Medical History Past Medical History: Coronary Artery Disease (CAD), COPD, Myocardial Infarction ([place]) Additional Past Medical History / Comment(s): CHF History of Any Multi-Drug Resistant Organisms: None Reported Past Surgical History: Hernia Repair Additional Past Surgical History / Comment(s): hernia repair Past Anesthesia/Blood Transfusion Reactions: No Reported Reaction Type of Cardiac Device: AICD Device Placement Date:: 2016 Past Psychological History: No Psychological Hx Reported Smoking Status: Current every day smoker General Exam - General Exam Comments Initial Comments: General: Appears in no acute distress. HEAD: Normal with no signs of head trauma. EYES: PERRLA, EOMI, conjunctiva normal, no discharge. ENT: Hearing grossly intact, normal oropharynx. RESPIRATORY: Clear breath sounds bilaterally. No wheezes, rales, or rhonchi. C/V: Irregular rate and rhythm. S1 and S2 auscultated, symmetrical lower extremity pitting edema, peripheral pulses 2+ and intact throughout ABD: Abd is soft, nontender, nondistended EXT: Normal range of motion, no obvious deformity SKIN: No rashes or lesions observed on exposed skin. NEURO: Alert and oriented x 4. Course Vital Signs 11/24/23 11/24/23 11/24/23 02:54 03:59 04:22 Temperature 97.7 F Pulse Rate 125 H 118 H 122 H Respiratory 22 20 18 Rate Blood Pressure 151/120 140/79 138/84 O2 Sat by Pulse 98 97 98 Oximetry 11/24/23 11/24/23 11/24/23 04:30 05:00 05:30 Temperature Pulse Rate 125 H 120 H Respiratory 24 22 Rate Blood Pressure 138/84 145/109 138/92 O2 Sat by Pulse 93 L 96 Oximetry 11/24/23 11/24/23 06:15 06:42 Temperature Pulse Rate 106 H 92 Respiratory 18 16 Rate Blood Pressure 130/99 133/94 O2 Sat by Pulse 98 97 Oximetry Medical Decision Making - Medical Decision Making Was pt. sent in by a medical professional or institution (, PA, MINCEMEAT MAKER, urgent care, hospital, or penitentiary...) When possible be specific @ -No Did you speak to anyone other than the patient for history (EMS, parent, family, police, friend...)? What history was obtained from this source @ -No Did you review nursing and triage notes (agree or disagree)? Why? @ -I reviewed and agree with nursing and triage notes Were old charts reviewed (outside hosp., previous admission, EMS record, old EKG, old radiological studies, urgent care reports/EKG's, penitentiary records)? Report findings @ -Old charts reviewed Differential Diagnosis (chest pain, altered mental status, abdominal pain women, abdominal pain men, vaginal bleeding, weakness, fever, dyspnea, syncope, headache, dizziness, GI bleed, back pain, seizure, CVA, palpatations, mental health, musculoskeletal)? @ -Differential Dyspnea: Coronary syndrome, arrhythmia, tamponade, asthma, COPD, pulmonary embolism, pneumonia, pneumothorax, pulmonary effusion, anaphylaxis, diabetic ketoacidosis, flailed chest, pulmonary contusion, diaphragmatic rupture, anemia, neuromuscular, this is not meant to be an all-inclusive list. EKG interpreted by me (3pts min.). @ -As above X-rays interpreted by me (1pt min.). @ Chest x-ray shows pulm pulmonary vascular congestion. CT interpreted by me (1pt min.). @ -None done U/S interpreted by me (1pt. min.). @ -None done What testing was considered but not performed or refused? (CT, X-rays, U/S, labs)? Why? @ -None What meds were considered but not given or refused? Why? @ -None Did you discuss the management of the patient with other professionals (professionals i.e. , PA, [employer]KER, lab, RT, psych nurse, social work case manager, archivist military history, teacher, special assets officer, test case developer)? Give summary @ -Discussed with PCP Dr. Campos who accepted the admission. Was smoking cessation discussed for >3mins.? @ -No Was critical care preformed (if so, how long)? @ -Yes, 35 minutes. Were there social determinants of health that impacted care today? How? (Homelessness, low income, unemployed, alcoholism, drug addiction, tr ansportation, low edu. Level, literacy, decrease access to med. care, penitentiary, rehab)? @ -No Was there de-escalation of care discussed even if they declined (Discuss DNR or withdrawal of care, Hospice)? DNR status @ -No What co-morbidities impacted this encounter? (DM, HTN, Smoking, COPD, CAD, Cancer, CVA, ARF, Chemo, Hep., AIDS, mental health diagnosis, sleep apnea, morbid obesity)? @ -A-fib, CHF Was patient admitted / discharged? Hospital course, mention meds given and route, prescriptions, significant lab abnormalities, going to OR and other pertinent info. @ -Based on the patient's presentation and physical exam, presents emergency department complaining of what seems to be a congestive heart failure exacerbation. Has worsening orthopnea, lower extremity edema, exertional dyspnea. Has a history of CHF. Will obtain cardiopulmonary workup. Is already on blood thinners. Is in A-fib with RVR as he states he did not take his evening beta-pati last night. Patient will be given a dose of Coreg and we will continue to monitor. Patient was in agreement with this plan. Vital signs otherwise within acceptable limits. Patient does become slightly hypoxic in the low 90s when sleeping. EKG shows no signs of acute ischemia. Shows A-fib with RVR. Did not respond to Coreg effectively and therefore patient given 2 doses of IV push metoprolol which did improve patient's heart rate to within acceptable limits. Laboratory studies remarkable for indeterminate troponin 0.023, BNP of 2600. Remainder the labs within acceptable limits. Chest x-ray shows pulmonary vascular susan estion. At this time would like to admit the patient. A-fib is rate controlled at this time, work of breathing is improved, and patient was initiated on IV Lasix. Echo ordered. Cardiology consulted. Patient was in agreement this plan. After discussing with the patient, he states he is on amiodarone still as well as Entresto, Aldactone, Coreg he believes. I did reorder these but we will cont inue to monitor his normal medications. Patient was in agreement this plan. Spoke with admitting physician, Dr. Campos who accepted the admission. Undiagnosed new problem with uncertain prognosis? @ -No Drug Therapy requiring intensive monitoring for toxicity (Heparin, Nitro, Insulin, Cardizem)? @ -No Were any procedures done? @ -No Diagnosis/symptom? @ -A-fib with RVR, CHF exacerbation Acute, or Chronic, or Acute on Chronic? @ -Acute Uncomplicated (without systemic symptoms) or Complicated (systemic symptoms)? @ -Complicated Side effects of treatment? @ -No Exacerbation, Progression, or Severe Exacerbation? @ -No Poses a threat to life or bodily function? How? (Chest pain, USA, ID, pneumonia, PE, COPD, DKA, ARF, appy, cholecystitis, CVA, Diverticulitis, Homicidal, Suicidal, threat to staff... and all critical care pts) @ -Yes - Lab Data Result diagrams: 11/24/23 03:02 11/24/23 03:02 Lab Results 11/24/23 11/24/23 11/24/23 Range/Units 03:02 03:02 03:02 WBC 9.2 (3.8-10.6) k/uL RBC 5.02 (4.30-5.90) m/uL Hgb 13.5 (13.0-17.5) gm/dL Hct 43.1 (39.0-53.0) % MCV 85.9 (80.0-100.0) fL MCH 26.9 (25.0-35.0) pg MCHC 31.3 (31.0-37.0) g/dL RDW 15.1 (11.5-15.5) % Plt Count 187 (150-450) k/uL MPV 7.7 Neutrophils % 71 % Lymphocytes % 18 % Monocytes % 7 % Eosinophils % 2 % Basophils % 0 % Neutrophils # 6.5 (1.3-7.7) k/uL Lymphocytes # 1.7 (1.0-4.8) k/uL Monocytes # 0.6 (0-1.0) k/uL Eosinophils # 0.2 (0-0.7) k/uL Basophils # 0.0 (0-0.2) k/uL PT 11.4 (10.0-12.5) sec INR 1.1 (<1.2) APTT 24.1 (22.0-30.0) sec Sodium 138 (137-145) mmol/L Potassium 4.5 (3.5-5.1) mmol/L Chloride 109 H (98-107) mmol/L Carbon Dioxide 26 (22-30) mmol/L Anion Gap 3 mmol/L BUN 36 H (9-20) mg/dL Creatinine 1.22 (0.66-1.25) mg/dL Est GFR (CKD-EPI)AfAm 70 (>60 ml/min/1.73 sqM) Est GFR (CKD-EPI)NonAf 61 (>60 ml/min/1.73 sqM) Glucose 103 H (74-99) mg/dL Calcium 9.0 (8.4-10.2) mg/dL Magnesium 2.0 (1.6-2.3) mg/dL Total Bilirubin 0.7 (0.2-1.3) mg/dL AST 29 (17-59) U/L ALT 42 (4-49) U/L Alkaline Phosphatase 90 (38-126) U/L Troponin I (0.000-0.034) ng/mL NT-Pro-B Natriuret Pep 2670 pg/mL Total Protein 6.5 (6.3-8.2) g/dL Albumin 3.7 (3.5-5.0) g/dL Urine Color Urine Appearance (Clear) Urine pH (5.0-8.0) Ur Specific [place] (1.001-1.035) Urine Protein (Negative) Urine Glucose (UA) (Negative) Urine Ketones (Negative) Urine Blood (Negative) Urine Nitrite (Negative) Urine Bilirubin (Negative) Urine Urobilinogen (<2.0) mg/dL Ur Leukocyte Esterase (Negative) Influenza Type A (PCR) (Not Detectd) Influenza Type B (PCR) (Not Detectd) RSV (PCR) (Not Detectd) SARS-CoV-2 (PCR) (Not Detectd) 11/24/23 11/24/23 11/24/23 Range/Units 03:02 03:16 04:17 WBC (3.8-10.6) k/uL RBC (4.30-5.90) m/uL Hgb (13.0-17.5) gm/dL Hct (39.0-53.0) % MCV (80.0-100.0) fL MCH (25.0-35.0) pg MCHC (31.0-37.0) g/dL RDW (11.5-15.5) % Plt Count (150-450) k/uL MPV Neutrophils % % Lymphocytes % % Monocytes % % Eosinophils % % Basophils % % Neutrophils # (1.3-7.7) k/uL Lymphocytes # (1.0-4.8) k/uL Monocytes # (0-1.0) k/uL Eosinophils # (0-0.7) k/uL Basophils # (0-0.2) k/uL PT (10.0-12.5) sec INR (<1.2) APTT (22.0-30.0) sec Sodium (137-145) mmol/L Potassium (3.5-5.1) mmol/L Chloride (98-107) mmol/L Carbon Dioxide (22-30) mmol/L Anion Gap mmol/L BUN (9-20) mg/dL Creatinine (0.66-1.25) mg/dL Est GFR (CKD-EPI)AfAm (>60 ml/min/1.73 sqM) Est GFR (CKD-EPI)NonAf (>60 ml/min/1.73 sqM) Glucose (74-99) mg/dL Calcium (8.4-10.2) mg/dL Magnesium (1.6-2.3) mg/dL Total Bilirubin (0.2-1.3) mg/dL AST (17-59) U/L ALT (4-49) U/L Alkaline Phosphatase (38-126) U/L Troponin I 0.023 (0.000-0.034) ng/mL NT-Pro-B Natriuret Pep pg/mL Total Protein (6.3-8.2) g/dL Albumin (3.5-5.0) g/dL Urine Color Light Yellow Urine Appearance Clear (Clear) Urine pH 7.0 (5.0-8.0) Ur Specific [place] 1.023 (1.001-1.035) Urine Protein Trace H (Negative) Urine Glucose (UA) Negative (Negative) Urine Ketones Negative (Negative) Urine Blood Negative (Negative) Urine Nitrite Negative (Negative) Urine Bilirubin Negative (Negative) Urine Urobilinogen <2.0 (<2.0) mg/dL Ur Leukocyte Esterase Negative (Negative) Influenza Type A (PCR) Not Detected (Not Detectd) Influenza Type B (PCR) Not Detected (Not Detectd) RSV (PCR) Not Detected (Not Detectd) SARS-CoV-2 (PCR) Not Detected (Not Detectd) - EKG Data -: EKG Interpreted by Me EKG Comments: 12-lead Electrocardiogram Interpretation Note EKG was reviewed and interpreted by myself. 12-lead ECG performed at 0254 is interpreted by me as revealing atrial fibrillation with RVR at a rate of 115 beats per minute. Borderline left axis deviation. QRS duration is 128 ms, QTc is 408 ms.. There were no ST or T wave abnormalities to suggest myocardial ischemia or injury. R wave progression across the precordium was satisfactory. By my interpretation this EKG is non-diagnostic for acute ischemia. Critical Care Time Critical Care Time: Yes Total Critical Care Time: 35 Disposition Clinical Impression: CHF (congestive heart failure), Atrial fibrillation with RVR Disposition: ADMITTED IP TO THIS HOSP Condition: Stable Time of Disposition: 05:45
[2023-11-24] MEDS: APIXABAN 5 MG TAB PO SCH (09:15)
[2023-11-24] MEDS: AMIODARONE 200 MG TAB PO SCH (09:15)
[2023-11-24] MEDS: carvediloL 6.25 MG TAB PO SCH (09:16)
[2023-11-24] MEDS: SACUBITRIL/VALSARTAN 24 MG-26 MG TABLET PO SCH (09:16)
[2023-11-24] MEDS: FUROSEMIDE 10 MG/ML 4 ML VIAL IV SCH (09:18)
[2023-11-24] MEDS: LOSARTAN 50 MG TAB PO SCH (11:44)
[2023-11-24] MEDS ORDERED: BACLOFEN 10 MG TAB PO PRN (12:01)
--- NOTE | 2023-11-24 15:27 | P.CRDCN ---
History of Present Illness Consult date: 11/24/23 Consult reason: atrial fibrillation, congestive heart failure History of present illness: This is a 68-year-old male patient of Dr. Armstrong with previous history of nonischemic cardiomyopathy status post AICD, chronic systolic heart failure, par oxysmal atrial fibrillation on Eliquis, hypertension, COPD, active tobacco use and dependence. We have been asked to evaluate the patient for CHF and atrial fibrillation. Patient presented to hospital due to shortness of breath that been going on for the past 1-2 weeks and worsening along with lower extremity edema. He missed his evening medications the day prior to presentation. No chest pain. Complains of palpitations. Patient presented with a blood pressure 151/120. He received 1 dose of Coreg 6.25 and IV Lasix 40 mg followed by 40 mg every 12 hours. He also received nebulizer treatment by EMS with improvement of his symptoms. EKG atrial fibrillation with ventricular rate of 115 bpm. Chest x-ray: Mild vascular congestion. WBC 9.2 hemoglobin 13.5. INR 1.1. Sodium 138, potassium 4.5, BUN 36 creatinine 1.22. Troponins negative x 2. proBNP 2670. Influenza A, influenza B, RSV, COVID-19 not detected. Urinalysis trace protein. Home cardiac medications: Atorvastatin 20 mg daily, Eliquis 5 mg daily, Coreg 12.5 mg daily, Lasix 40 mg daily, lisinopril 10 mg daily Echocardiogram performed in the office on 11/05/2023 revealed EF of 30 to 35%. Global LV hypokinesis with regional heterogeneity. Grade 2 diastolic dysfunction. Mild left ventricular hypertrophy. Mildly dilated right ventricle. Moderately dilated left atrium and mildly dilated right atrium. Aortic valve is calcified. Ascending aorta is less than 4 cm. Moderate mitral regurgitation. Mild tricuspid regurgitation. Severely increased pulmonary artery systolic pressure of 65 mmHg. Physiologic pulmonary. Lexiscan Cardiolite stress test performed in the office on 01/06/2023 was inconclusive EKG part of the stress test due to baseline abnormalities. Ischemic cardiomyopathy secondary to prior extensive inferior wall myocardial infarction with severe LV dysfunction without any ischemia. AICD interrogation done most recently in 09/2023 revealed normal AICD standby function. No episodes of atrial fibrillation since previous visit. No review Of Systems: At the time of my evaluation: Constitutional: No fever, no chills. No weakness, fatigue or lethargy. EENT: No headache. No dizziness. Lungs: Reports shortness of breath, reports cough, no sputum production. No wheezing. Cardiovascular: No chest pain, no lower extremity edema. No palpitations. No paroxysmal nocturnal dyspnea. No orthopnea. No lightheadedness or dizziness. No syncopal episodes. Abdominal: No abdominal pain. No nausea, vomiting. No diarrhea. No constipation. No bloody or tarry stools. Musculoskeletal: No muscle weakness. Neurologic: No aphasia. No facial droop. No change in mentation. No head injury. No headache. Physical examination: Gen: This is a 68-year-old male. He is resting in bed and appears very comfortable and in no acute distress. VS: reviewed blood pressure 134/101, heart rate 70, pulse ox 95% on room air. HEENT: Head is atraumatic, normocephalic. Pupils equal, round. Sclerae is an icteric. NECK: Supple. No JVD. LUNGS: Diminished breath sounds bilaterally. No wheezing. No intercostal retractions. HEART: Irregular rate and rhythm. No murmur. AICD left anterior chest wall ABDOMEN: Soft No tenderness. EXTREMITIES: Bilateral lower extremity edema. No calf tenderness. NEUROLOGICAL: Patient is awake, alert and oriented x3. Assessment: Acute on chronic systolic heart failure Nonischemic cardiomyopathy status post AICD Paroxysmal atrial fibrillation with RVR Hypertension COPD Active tobacco use and dependence Plan: Continue patient's home cardiac medications with the following changes Increase Coreg to 25 mg twice daily Increase Entresto to 49 mg - 51 mg twice daily Discontinue losartan Start patient on amiodarone bolus followed by drip Continue IV Lasix 40 mg every 12 hours Monitor MARCIA, daily weights, electrolytes and renal function No need to repeat echocardiogram as this was done in the office Interrogate AICD Further recommendations to follow based upon clinical course Thank you kindly for this consultation. Nurse practitioner note has been reviewed, I agree with documented findings and plan of care. Patient was seen and examined. Past Medical History Past Medical History: Coronary Artery Disease (CAD), COPD, Myocardial Infarction ([place]) Additional Past Medical History / Comment(s): CHF History of Any Multi-Drug Resistant Organisms: None Reported Past Surgical History: Hernia Repair Additional Past Surgical History / Comment(s): hernia repair Past Anesthesia/Blood Transfusion Reactions: No Reported Reaction Type of Cardiac Device: AICD Device Placement Date:: 2016 Past Psychological History: No Psychological Hx Reported Smoking Status: Current every day smoker Medications and Allergies Home Medications Medication Instructions Recorded Confirmed Type Apixaban [Eliquis] 5 mg PO BID 10/31/22 11/24/23 History Atorvastatin [Lipitor] 20 mg PO HS #30 tab 11/01/22 11/24/23 Rx Baclofen [Lioresal] 10 mg PO BID PRN 03/24/23 11/24/23 History Omeprazole 20 mg PO DAILY 03/24/23 11/24/23 History Sacubitril/Valsartan [Entresto 24 1 tab PO BID 03/24/23 11/24/23 History mg-26 mg Tablet] HYDROcodone/APAP 7.5-325MG [[place] 1 tab PO Q12H PRN 11/24/23 11/24/23 History 7.5-325] Losartan [Cozaar] 50 mg PO HS 11/24/23 11/24/23 History Spironolactone 12.5 mg PO DAILY 11/24/23 11/24/23 History carvediloL [Coreg] 12.5 mg PO BID 11/24/23 11/24/23 History Allergies Allergy/AdvReac Type Severity Reaction Status Date / Time No Known Allergies Allergy Verified 11/24/23 09:43 Physical Exam Vitals: Vital Signs Temp Pulse Resp BP Pulse Ox 11/24/23 09:09 98.1 F 70 18 134/101 95 11/24/23 07:00 110 H 19 133/94 97 11/24/23 06:42 92 16 133/94 97 11/24/23 06:15 106 H 18 130/99 98 11/24/23 05:30 120 H 22 138/92 96 11/24/23 05:00 145/109 11/24/23 04:30 125 H 24 138/84 93 L 11/24/23 04:22 122 H 18 138/84 98 11/24/23 03:59 118 H 20 140/79 97 11/24/23 02:54 97.7 F 125 H 22 151/120 98 Intake and Output 11/23/23 11/24/23 11/24/23 22:59 06:59 14:59 Other: Weight 124.738 kg Results 11/24/23 03:02 11/24/23 03:02 Cardiac Enzymes 11/24/23 11/24/23 11/24/23 Range/Units 03:02 03:02 07:48 AST 29 (17-59) U/L Troponin I 0.023 0.029 (0.000-0.034) ng/mL Coagulation 11/24/23 Range/Units 03:02 PT 11.4 (10.0-12.5) sec APTT 24.1 (22.0-30.0) sec CBC 11/24/23 Range/Units 03:02 WBC 9.2 (3.8-10.6) k/uL RBC 5.02 (4.30-5.90) m/uL Hgb 13.5 (13.0-17.5) gm/dL Hct 43.1 (39.0-53.0) % Plt Count 187 (150-450) k/uL Comprehensive Metabolic Panel 11/24/23 Range/Units 03:02 Sodium 138 (137-145) mmol/L Potassium 4.5 (3.5-5.1) mmol/L Chloride 109 H (98-107) mmol/L Carbon Dioxide 26 (22-30) mmol/L BUN 36 H (9-20) mg/dL Creatinine 1.22 (0.66-1.25) mg/dL Glucose 103 H (74-99) mg/dL Calcium 9.0 (8.4-10.2) mg/dL AST 29 (17-59) U/L ALT 42 (4-49) U/L Alkaline Phosphatase 90 (38-126) U/L Total Protein 6.5 (6.3-8.2) g/dL Albumin 3.7 (3.5-5.0) g/dL Current Medications Generic Name Dose Route Start Last Admin Trade Name Freq PRN Reason Stop Dose Admin Albuterol Sulfate 2.5 mg 11/24/23 05:31 Albuterol Nebulized 2.5 Mg/3 Ml INHALATION RT-Q6H PRN Shortness Of Breath Or Wheezing Amiodarone HCl 200 mg 11/24/23 09:00 11/24/23 09:15 Amiodarone 200 Mg Tab PO 200 mg DAILY YVES Administration Apixaban 5 mg 11/24/23 09:00 11/24/23 09:15 Apixaban 5 Mg Tab PO 5 mg BID YVES Administration Protocol Atorvastatin Calcium 20 mg 04/22/24 21:00 Atorvastatin 20 Mg Tab PO HS YVES Carvedilol 6.25 mg 11/24/23 09:00 Carvedilol 6.25 Mg Tab PO BID YVES Furosemide 40 mg 11/24/23 09:00 Furosemide 10 Mg/Ml 4 Ml Vial IV Q12HR YVES Naloxone HCl 0.2 mg 11/24/23 05:29 Naloxone 0.4 Mg/Ml 1 Ml Vial IV Q2M PRN Opioid Reversal Sacubitril/Valsartan 1 each 11/24/23 09:00 Sacubitril/Valsartan 24 Mg-26 Mg Tablet PO BID YVES Spironolactone 12.5 mg 11/24/23 21:00 Spironolactone 25 Mg Tab PO HS [facility] Intake and Output 11/23/23 11/24/23 11/24/23 22:59 06:59 14:59 Other: Weight 124.738 kg 11/24/23 03:02 11/24/23 03:02
[2023-11-24] MEDS: DEXTROSE 5% IN WATER 100 ML with AMIODARONE 150 MG IV ONE (15:32)
[2023-11-24] MEDS: AMIODARONE 360 MG in DEXTROSE 5% IN WATER 200 ML IV ONE (15:36)
[2023-11-24] MEDS: carvediloL 12.5 MG TAB PO SCH (17:53)
--- NOTE | 2023-11-24 19:02 | P.HPIM ---
History of Present Illness H&P Date: 11/24/23 Chief Complaint: Afib with RVR HISTORY OF PRESENT ILLNESS: This is a 68-year-old male with a previous medical history significant for nonischemic cardiomyopathy status post ICD implantation, paroxysmal atrial fibrillation, hypertension and hypertensive cardiovascular disease, hyperlipidemia, enlarged prostate, history of spondylosis of the cervical spine was recently evaluated in the office on the of this month with increased numbness in both upper extremities associated with increased pain in the neck, he was supposed to go and follow-up with Dr. Biggs from spine surgery, patient apparently was in his usual state of health till about few days ago when he started to have increased shortness of breath associated with increased swelling both lower extremities, patient was not able to sleep much at night because of increased shortness of breath, so he came to the emergency department at [facility] today he was found to have an atrial fibrillation with rapid ventricular response his heart rate was around 1 25-1 30, he was seen in consultation by cardiology in the ER, his carvedilol was increased to 12.5 mg orally twice every day he was kept on Eliquis 5 mg orally twice every day, he was admitted to the hospital for further evaluation and recommendation, patient did have a chest x-ray that showed pulmonary vascular congestion patient will be admitted to the hospital for further evaluation by cardiology and for optimization of his nonischemic cardiomyopathy and using guideline directed medical therapy GDMT. REVIEW OF SYSTEMS: Constitutional: No documented fever, no chills, no night sweats. No weight change. No weakness, fatigue or lethargy. No daytime sleepiness. EENT: No headache. No blurred vision or double vision, no loss of vision. No loss of Hearing, no ringing in the ears, no dizziness. No nasal drainage or congestion. No epistaxis. No sore throat. Lungs: positive for shortness of breath, no cough, no sputum production. No wheezing. Reports dyspnea with activity. Cardiovascular: No chest pain, positive for lower extremity edema. positive for palpitations. positive for paroxysmal nocturnal dyspnea. positive for orthopnea. No lightheadedness or dizziness. No syncopal episodes. Abdominal: Reports abdominal pain. No nausea, vomiting. No diarrhea. No constipation. No bloody or tarry stools reports loss of appetite. Genitourinary: No dysuria, increased frequency, urgency. No urinary retention. Musculoskeletal: No myalgias. No muscle weakness, no gait dysfunction, no frequent falls. No back pain. No neck pain. Integumentary: No wounds, no lesions. No rash or pruritus. No unusual bruisi ng. No change in hair or nails. Neurologic: No aphasia. No facial droop. No change in mentation. No head injury. No headache. No paralysis. No paresthesia. Psychiatric: No depression. No anxiety. No mood swings. Endocrine: No abnormal blood sugars. No weight change. 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 SOCIAL HISTORY: Patient used to smoke about a pack every day since the age of 18 and quit about 2 months ago, he denies any alcohol ingestion, no drug use or abuse. FAMILY HISTORY: Father at age of 67 from CAD and congestive heart failure mother at age of 90 from old age, patient has 3 sisters 1 with rheumatoid arthritis and CAD, and the other 2 are okay, patient has 3 daughters one of them works as a fingerprint technician in the MRI department in [place]. PHYSICAL EXAMINATION: General: 68-year-old male laying down in bed in minimal respiratory distress. HEENT: Head is atraumatic, normocephalic, pupils were equal round reactive to light and recommendation, extraocular muscle movement were intact, sclera nonicteric, conjunctivae were pale, mucous membranes of the mouth are somewhat dry. Neck: Supple, no JVP, normal carotid upstroke bilaterally, no lymphadenopathy. Chest: Decreased breath sounds at the bases, few rhonchi, no expiratory wheezes, no chest wall tenderness, no intercostal retractions. Heart: First heart sound is normal, second heart sound is normal irregularly irregular, there is systolic ejection murmur 2/6 located in the left sternal border, there is AICD. Abdomen: Soft, nontender, nondistended, positive bowel sounds. Extremities: There is no edema no calf tenderness DP +2 bilaterally. Neurologic examination: Patient is awake alert and oriented x3, cranial nerves II-12 appear grossly intact, muscle power were 5 out of 5 in upper extremities and 5 out of 5 in bilateral lower extremities, deep tendon reflexes normal bilaterally. ASSESSMENT AND PLAN: 1. Atrial fibrillation with rapid ventricular response. Patient was restarted back on carvedilol 25 mg orally twice every day, continue Eliquis 5 mg orally twice every day, monitor the patient heart rate very closely, patient may need to be started on amiodarone 400 mg orally twice every day if his heart rate is not improving. Cardiology consultation appreciated. 2. Acute on chronic systolic heart failure due to nonischemic cardiomyopathy. Continue patient on carvedilol 12.5 mg orally twice every day, continue Entresto 49/51 mg orally twice every day, patient was started on Lasix 40 mg IV push every 12 hours as well as spironolactone 12.5 mg orally once every day, monitor the patient input and output and daily weight. 3. Hypertension and hypertensive cardiovascular disease. Continue patient on Coreg 25 mg orally twice every day. Monitor the patient blood pressure very closely. 4. Mixed hyperlipidemia. Continue atorvastatin 20 mg once every day, monitor the patient lipid panel, keep LDL 55-70. 5. 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 6. Enlarged prostate. Monitor for urinary retention. 7. DVT prophylaxis. Continue Eliquis 5 mg orally twice every day. 8. GI prophylaxis. Continue patient on Protonix 40 mg once every day. 9. Admit to inpatient. Estimated length of stay 2 midnights. 10. Patient is full code. Past Medical History Past Medical History: Coronary Artery Disease (CAD), COPD, Myocardial Infarction (SC) Additional Past Medical History / Comment(s): CHF History of Any Multi-Drug Resistant Organisms: None Reported Past Surgical History: Hernia Repair Additional Past Surgical History / Comment(s): hernia repair Past Anesthesia/Blood Transfusion Reactions: No Reported Reaction Type of Cardiac Device: AICD Device Placement Date:: 2016 Past Psychological History: No Psychological Hx Reported Smoking Status: Current every day smoker Medications and Allergies Home Medications Medication Instructions Recorded Confirmed Type Apixaban [Eliquis] 5 mg PO BID 10/31/22 11/24/23 History Atorvastatin [Lipitor] 20 mg PO HS #30 tab 11/01/22 11/24/23 Rx Baclofen [Lioresal] 10 mg PO BID PRN 03/24/23 11/24/23 History Omeprazole 20 mg PO DAILY 03/24/23 11/24/23 History Sacubitril/Valsartan [Entresto 24 1 tab PO BID 03/24/23 11/24/23 History mg-26 mg Tablet] HYDROcodone/APAP 7.5-325MG [[place] 1 tab PO Q12H PRN 11/24/23 11/24/23 History 7.5-325] Losartan [Cozaar] 50 mg PO HS 11/24/23 11/24/23 History Spironolactone 12.5 mg PO DAILY 11/24/23 11/24/23 History carvediloL [Coreg] 12.5 mg PO BID 11/24/23 11/24/23 History Allergies Allergy/AdvReac Type Severity Reaction Status Date / Time No Known Allergies Allergy Verified 11/24/23 09:43 Physical Exam Vitals: Vital Signs Temp Pulse Resp BP Pulse Ox 11/24/23 11:03 106 H 18 113/79 95 11/24/23 09:09 98.1 F 70 18 134/101 95 11/24/23 07:00 110 H 19 133/94 97 11/24/23 06:42 92 16 133/94 97 11/24/23 06:15 106 H 18 130/99 98 11/24/23 05:30 120 H 22 138/92 96 11/24/23 05:00 145/109 11/24/23 04:30 125 H 24 138/84 93 L 11/24/23 04:22 122 H 18 138/84 98 11/24/23 03:59 118 H 20 140/79 97 11/24/23 02:54 97.7 F 125 H 22 151/120 98 Intake and Output 11/23/23 11/24/23 11/24/23 22:59 06:59 14:59 Other: Weight 124.738 kg Results CBC & Chem 7: 11/24/23 03:02 11/24/23 03:02 Labs: Abnormal Lab Results - Last 24 Hours (Table) 11/24/23 11/24/23 Range/Units 03:02 04:17 Chloride 109 H (98-107) mmol/L BUN 36 H (9-20) mg/dL Glucose 103 H (74-99) mg/dL Urine Protein Trace H (Negative)
--- NOTE | 2023-11-24 19:33 | CA ---
Transthoracic Echo Report Name: Slade Mtz Age: 68 Gender: M : 1955 Exam Date: 11/24/2023 08:05 Exam Location: [facility] Ht (in): 73 Wt (lb): 275 Ordering Physician: Paulie Hills MD Attending/Referring Phys: Fitness Services Manager Pia campbell RDCS Procedure CPT: Indications: chf Cardiac Hx: Pacemaker Technical Quality: Fair Contrast 1: Total Dose (mL): Contrast 2: Total Dose (mL): MEASUREMENTS (Male / Female) Normal Values 2D ECHO LV Diastolic Diameter PLAX 6.6 cm 4.2 - 5.9 / 3.9 - 5.3 cm LV Systolic Diameter PLAX 5.7 cm IVS Diastolic Thickness 1.3 cm 0.6 - 1.0 / 0.6 - 0.9 cm LVPW Diastolic Thickness 1.4 cm 0.6 - 1.0 / 0.6 - 0.9 cm LV Relative Wall Thickness 0.4 RV Internal Dim ED PLAX 2.7 cm LA Systolic Diameter LX 5.5 cm 3.0 - 4.0 / 2.7 - 3.8 cm LA Volume 170.5 cm??? 18 - 58 / 22 - 52 cm??? LA Volume Index 66.1 cm???/m??? 16 - 28 cm???/m??? M-MODE Aortic Root Diameter MM 3.3 cm LA Systolic Diameter MM 5.2 cm LA Ao Ratio MM 1.6 AV Cusp Separation MM 2.0 cm DOPPLER AV Peak Velocity 142.9 cm/s AV Peak Gradient 8.2 mmHg MR Peak Velocity 512.0 cm/s MR Peak Gradient 104.9 mmHg TR Peak Velocity 230.8 cm/s TR Peak Gradient 21.3 mmHg Right Ventricular Systolic Press 35.6 mmHg PV Peak Velocity 100.0 cm/s PV Peak Gradient 4.0 mmHg FINDINGS Left Ventricle Left ventricular ejection fraction is estimated at 20-25%. Mildly increased septal wall thickness. Moderately increased left ventricular diastolic diameter. Severely reduced global left ventricular systolic function. Right Ventricle Mild right ventricular dilatation. Right ventricular systolic pressure estimated at 35mm hg. Pacemaker wire seen. Right Atrium Moderate right atrial dilatation. Catheter/pacemaker wire in the right atrial cavity. Left Atrium Severely increased left atrial diameter. Severely increased left atrial volume. Moderately increased left atrial area. Mitral Valve Structurally normal mitral valve. [id number] mitral regurgitation. Mitral annular calcification. Aortic Valve Trileaflet aortic valve. Trace aortic regurgitation. No aortic stenosis. Tricuspid Valve Structurally normal tricuspid valve. Mild tricuspid regurgitation. No tricuspid stenosis. Pulmonic Valve Structurally normal pulmonic valve. Trace pulmonic regurgitation. Pericardium No pericardial effusion. Aorta Normal size aortic root and proximal ascending aorta. CONCLUSIONS Dilated LV with severe LV dysfunction ejection fraction less than 25% Mild RV enlargement Biatrial enlargement Previewed by: Dr. Jose Armstrong MD (Electronically Signed) Final Date: 24 November 2023 19:33
[2023-11-24] MEDS: HYDROcodone/APAP 7.5-325MG 1 EACH TAB PO PRN (20:55)
[2023-11-24] MEDS: ATORVASTATIN 20 MG TAB PO SCH (20:56)
[2023-11-24] MEDS ORDERED: LOSARTAN 50 MG TAB PO SCH (21:00)
[2023-11-24] MEDS ORDERED: SPIRONOLACTONE 25 MG TAB PO SCH (21:00)
[2023-11-24] MEDS ORDERED: carvediloL 12.5 MG TAB PO SCH ×2 (21:00)
[2023-11-24] MEDS: SACUBITRIL/VALSARTAN 49 MG-51 MG TABLET PO SCH (21:02)
[2023-11-24] MEDS: AMIODARONE 450 MG in DEXTROSE 5% IN WATER 250 ML IV SCH (21:18)
[2023-11-25] MEDS: PANTOPRAZOLE 40 MG TABLET PO SCH (06:18)
[2023-11-25] MEDS: SPIRONOLACTONE 25 MG TAB PO SCH (07:59)
[2023-11-25 10:25] LABS: Basophils % (A) 0 %; Eosinophils # (A) 0.2 k/uL (0-0.7); Eosinophils % (A) 2 %; HCT 47.6 % (39.0-53.0); Lymphocytes # (A) 1.5 k/uL (1.0-4.8); Lymphocytes % (A) 19 %; MCH 27.3 pg (25.0-35.0); MCHC 31.6 g/dL (31.0-37.0); MCV 86.1 fL (80.0-100.0); Mean Platelet Volume 8.1; Monocytes # (A) 0.5 k/uL (0-1.0); Monocytes % (A) 6 %; Neutrophils # (A) 5.7 k/uL (1.3-7.7); Neutrophils % (A) 71 %; Platelet Count 222 k/uL (150-450); RBC 5.52 m/uL (4.30-5.90); WBC 8.1 k/uL (3.8-10.6)
[2023-11-25 10:35] LABS: ALT 34 U/L (4-49); AST 24 U/L (17-59); African American GFR (CKD) 81 (>60 ml/min/1.73 sqM); Albumin 3.8 g/dL (3.5-5.0); Alkaline Phosphatase 93 U/L (38-126); Anion Gap 6 mmol/L; Blood Urea Nitrogen 33 mg/dL (9-20); Calcium 8.9 mg/dL (8.4-10.2); Carbon Dioxide 25 mmol/L (22-30); Chloride 105 mmol/L (98-107); Glucose 169 mg/dL (74-99); Non-African American GFR(CKD) 70 (>60 ml/min/1.73 sqM); Potassium 4.1 mmol/L (3.5-5.1); Sodium 136 mmol/L (137-145); Total Bilirubin 1.2 mg/dL (0.2-1.3); Total Protein 6.6 g/dL (6.3-8.2)
--- NOTE | 2023-11-25 15:02 | P.PN ---
Subjective Progress Note Date: 11/25/23 Consult reason: atrial fibrillation, congestive heart failure History of present illness: This is a 68-year-old male patient of Dr. Armstrong with previous history of nonischemic cardiomyopathy status post AICD, chronic systolic heart failure, paroxysmal atrial fibrillation on Eliquis, hypertension, COPD, active tobacco use and dependence. We have been asked to evaluate the patient for CHF and atrial fibrillation. Patient presented to hospital due to shortness of breath that been going on for the past 1-2 weeks and worsening along with lower extremi ty edema. He missed his evening medications the day prior to presentation. No chest pain. Complains of palpitations. Patient presented with a blood pressure 151/120. He received 1 dose of Coreg 6.25 and IV Lasix 40 mg followed by 40 mg every 12 hours. He also received nebulizer treatment by EMS with improvement of his symptoms. EKG atrial fibrillation with ventricular rate of 115 bpm. Chest x-ray: Mild vascular congestion. WBC 9.2 hemoglobin 13.5. INR 1.1. Sodium 138, potassium 4.5, BUN 36 creatinine 1.22. Troponins negative x 2. proBNP 2670. Influenza A, influenza B, RSV, COVID-19 not detected. Urinalysis trace protein. Home cardiac medications: Atorvastatin 20 mg daily, Eliquis 5 mg daily, Coreg 12.5 mg daily, Lasix 40 mg daily, lisinopril 10 mg daily Echocardiogram performed in the office on 11/05/2023 revealed EF of 30 to 35%. Global LV hypokinesis with regional heterogeneity. Grade 2 diastolic dysfunction. Mild left ventricular hypertrophy. Mildly dilated right vent ricle. Moderately dilated left atrium and mildly dilated right atrium. Aortic valve is calcified. Ascending aorta is less than 4 cm. Moderate mitral regurgitation. Mild tricuspid regurgitation. Severely increased pulmonary artery systolic pressure of 65 mmHg. Physiologic pulmonary. Lexiscan Cardiolite stress test performed in the office on 01/06/2023 was inconclusive EKG part of the stress test due to baseline abnormalities. Ischemic cardiomyopathy secondary to prior extensive inferior wall myocardial infarction with severe LV dysfunction without any ischemia. AICD interrogation done most recently in 09/2023 revealed normal AICD standby function. No episodes of atrial fibrillation since previous visit. 11/24 Patient is seen today on the cardiac stepdown unit. Yesterday we had increased Coreg and increase Entresto, started patient on amiodarone bolus followed by drip and continued IV Lasix. Blood pressure 100/71, heart rate in the 60s to 80s, pulse ox 97% on room air. Repeat blood work reveals normal CBC. Sodium 136, potassium 4.1, BUN 33 creatinine 1.08. Patient is in atrial fibrillation/atrial flutter. ICD interrogation has been reviewed. Echocardiogram reveals dilated LV with severe LV dysfunction with EF of 25%, mild RV enlargement, biatrial enlargement. Physical examination: Gen: This is a 68-year-old male. He is resting in bed and appears very comfortable and in no acute distress. VS: reviewed HEENT: Head is atraumatic, normocephalic. Pupils equal, round. Sclerae is anicteric. NECK: Supple. No JVD. LUNGS: Diminished breath sounds bilaterally. No wheezing. No intercostal retractions. HEART: Irregular rate and rhythm. No murmur. AICD left anterior chest wall ABDOMEN: Soft No tenderness. EXTREMITIES: Bilateral lower extremity edema. No calf tenderness. NEUROLOGICAL: Patient is awake, alert and oriented x3. Assessment: Acute on chronic systolic heart failure Nonischemic cardiomyopathy status post AICD Paroxysmal atrial fibrillation with RVR currently sinus rhythm Hypertension COPD Active tobacco use and dependence Plan: Continue patient's home cardiac medications continue Coreg 25 mg twice daily, Entresto 49 mg - 51 mg twice daily Continue patient on amiodarone bolus followed by drip Continue IV Lasix 40 mg every 12 hours Monitor MARCIA, daily weights, electrolytes and renal function Schedule patient for cardioversion tomorrow with Dr. Armstrong N.p.o. after midnight Further recommendations to follow based upon clinical course Nurse practitioner note has been reviewed, I agree with documented findings and plan of care. Patient was seen and examined. Objective - Vital Signs Vital signs: Vital Signs Temp 97.5 F L 11/25/23 11:24 Pulse 78 11/25/23 11:24 Resp 16 11/25/23 11:24 BP 100/71 11/25/23 11:24 Pulse Ox 97 11/25/23 11:24 FiO2 Intake & Output 11/24/23 11/25/23 11/25/23 18:59 06:59 18:59 Intake Total 180 610 Balance 180 610 Weight 124.738 kg 116.8 kg Intake: Intake, IV Titration 250 Amount Amiodarone 450 mg In 250 Dextrose 5% in Water 250 ml @ 0.5 MG/MIN 16.667 mls/hr IV .Q15H [facility] Rx#: [id number] Oral 180 360 Other: Voiding Method Toilet Toilet - Labs CBC & Chem 7: 11/25/23 09:15 11/25/23 09:15 Labs: Abnormal Lab Results - Last 24 Hours (Table) 11/25/23 Range/Units 09:15 Sodium 136 L (137-145) mmol/L BUN 33 H (9-20) mg/dL Glucose 169 H (74-99) mg/dL
[2023-11-25] MEDS: SODIUM CHLORIDE 0.9% 1,000 ML IV SCH (16:57)
--- NOTE | 2023-11-25 18:25 | P.PN ---
Subjective Progress Note Date: 11/25/23 HISTORY OF PRESENT ILLNESS: This is a 68-year-old male with a previous medical history significant for nonischemic cardiomyopathy status post ICD implantation, paroxysmal atrial fibrillation, hypertension and hypertensive cardiovascular disease, hyperlipidemia, enlarged prostate, history of spondylosis of the cervical spine was recently evaluated in the office on the of this month with increased numbness in both upper extremities associated with increased pain in the neck, he was supposed to go and follow-up with Dr. Biggs from spine surgery, patient apparently was in his usual state of health till about few days ago when he started to have increased shortness of breath associated with increased swelling both lower extremities, patient was not able to sleep much at night because of increased shortness of breath, so he came to the emergency department at [facility] today he was found to have an atrial fibrillation with rapid ventricular response his heart rate was around 1 25-1 30, he was seen in consultation by cardiology in the ER, his carvedilol was increased to 12.5 mg orally twice every day he was kept on Eliquis 5 mg orally twice every day, he was admitted to the hospital for further evaluation and recommendation, patient did have a chest x-ray that showed pulmonary vascular congestion patient will be admitted to the hospital for further evaluation by cardiology and for optimization of his nonischemic cardiomyopathy and using guideline directed medical therapy GDMT. 11/24: Patient was started yesterday on amiodarone drip due to his atrial fibrillation with rapid ventricular response, he was converted to a normal sinus rhythm, he will likely be switched tomorrow to oral amiodarone 400 mg orally twice every day, continue with carvedilol 25 mg orally twice every day, continue Eliquis 5 mg orally twice every day, patient has been followed by cardiology as well, patient is feeling a lot better today he denies any chest pain, he is less short of breath, is diuresing very well, he has no edema in both lower extremities today. REVIEW OF SYSTEMS: Constitutional: No documented fever, no chills, no night sweats. No weight change. No weakness, fatigue or lethargy. No daytime sleepiness. EENT: No headache. No blurred vision or double vision, no loss of vision. No loss of Hearing, no ringing in the ears, no dizziness. No nasal drainage or co ngestion. No epistaxis. No sore throat. Lungs: positive for shortness of breath, no cough, no sputum production. No wheezing. Reports dyspnea with activity. Cardiovascular: No chest pain, positive for lower extremity edema. positive for palpitations. positive for paroxysmal nocturnal dyspnea. positive for orthopnea. No lightheadedness or dizziness. No syncopal episodes. Abdominal: Reports abdominal pain. No nausea, vomiting. No diarrhea. No constipation. No bloody or tarry stools reports loss of appetite. Genitourinary: No dysuria, increased frequency, urgency. No urinary retention. Musculoskeletal: No myalgias. No muscle weakness, no gait dysfunction, no frequent falls. No back pain. No neck pain. Integumentary: No wounds, no lesions. No rash or pruritus. No unusual brui sing. No change in hair or nails. Neurologic: No aphasia. No facial droop. No change in mentation. No head injury. No headache. No paralysis. No paresthesia. Psychiatric: No depression. No anxiety. No mood swings. Endocrine: No abnormal blood sugars. No weight change. PHYSICAL EXAMINATION: General: 68-year-old male laying down in bed in minimal respiratory distress. HEENT: Head is atraumatic, normocephalic, pupils were equal round reactive to light and recommendation, extraocular muscle movement were intact, sclera nonicteric, conjunctivae were pale, mucous membranes of the mouth are somewhat dry. Neck: Supple, no JVP, normal carotid upstroke bilaterally, no lymphadenopathy. Chest: Decreased breath sounds at the bases, few rhonchi, no expiratory wheezes, no chest wall tenderness, no intercostal retractions. Heart: First heart sound is normal, second heart sound is normal, there is systolic ejection murmur 2/6 located in the left sternal border, there is AICD. Abdomen: Soft, nontender, nondistended, positive bowel sounds. Extremities: There is no edema no calf tenderness DP +2 bilaterally. Neurologic examination: Patient is awake alert and oriented x3, cranial nerves II-12 appear grossly intact, muscle power were 5 out of 5 in upper extremities and 5 out of 5 in bilateral lower extremities, deep tendon reflexes normal bilaterally. ASSESSMENT AND PLAN: 1. Atrial fibrillation with rapid ventricular response. Patient was restarted back on carvedilol 25 mg orally twice every day, continue Eliquis 5 mg orally twice every day, continue amiodarone drip, he will be switched to oral amiodarone 400 mg orally twice a day tomorrow morning. 2. Acute on chronic systolic heart failure due to nonischemic cardiomyopathy. Continue patient on carvedilol 25 mg orally twice every day, continue Entresto 49/51 mg orally twice every day, patient was started on Lasix 40 mg IV push every 12 hours as well as spironolactone 12.5 mg orally once every day, monitor the patient input and output and daily weight. 3. Hypertension and hypertensive cardiovascular disease. Continue patient on Coreg 25 mg orally twice every day. Monitor the patient blood pressure very cl osely. 4. Mixed hyperlipidemia. Continue atorvastatin 20 mg once every day, monitor the patient lipid panel, keep LDL 55-70. 5. 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 6. Enlarged prostate. Monitor for urinary retention. 7. DVT prophylaxis. Continue Eliquis 5 mg orally twice every day. 8. GI prophylaxis. Continue patient on Protonix 40 mg once every day. 9. Increase activity. 10. Likely home tomorrow morning. Objective - Vital Signs Vital signs: Vital Signs Temp 97.5 F L 11/25/23 11:24 Pulse 115 H 11/25/23 17:00 Resp 17 11/25/23 17:00 BP 145/91 11/25/23 17:00 Pulse Ox 95 11/25/23 17:00 FiO2 Intake & Output 11/24/23 11/25/23 11/25/23 18:59 06:59 18:59 Intake Total 180 1330 Output Total 600 Balance 180 730 Weight 124.738 kg 116.8 kg Intake: Intake, IV Titration 250 Amount Amiodarone 450 mg In 250 Dextrose 5% in Water 250 ml @ 0.5 MG/MIN 16.667 mls/hr IV .Q15H [facility] Rx#: [id number] Oral 180 1080 Output: Urine 600 Other: Voiding Method Toilet Toilet - Labs CBC & Chem 7: 11/25/23 09:15 11/25/23 09:15 Labs: Abnormal Lab Results - Last 24 Hours (Table) 11/25/23 Range/Units 09:15 Sodium 136 L (137-145) mmol/L BUN 33 H (9-20) mg/dL Glucose 169 H (74-99) mg/dL
[2023-11-26 06:59] LABS: Basophils % (A) 0 %; Eosinophils # (A) 0.2 k/uL (0-0.7); Eosinophils % (A) 2 %; HCT 49.8 % (39.0-53.0); HGB 15.5 gm/dL (13.0-17.5); Lymphocytes # (A) 1.5 k/uL (1.0-4.8); Lymphocytes % (A) 14 %; MCH 26.7 pg (25.0-35.0); MCHC 31.2 g/dL (31.0-37.0); MCV 85.5 fL (80.0-100.0); Mean Platelet Volume 7.3; Monocytes # (A) 0.9 k/uL (0-1.0); Monocytes % (A) 8 %; Neutrophils # (A) 7.7 k/uL (1.3-7.7); Neutrophils % (A) 74 %; Platelet Count 231 k/uL (150-450); RBC 5.83 m/uL (4.30-5.90); RDW 14.9 % (11.5-15.5); WBC 10.5 k/uL (3.8-10.6)
[2023-11-26 07:21] LABS: ALT 31 U/L (4-49); AST 21 U/L (17-59); African American GFR (CKD) 75 (>60 ml/min/1.73 sqM); Albumin 3.7 g/dL (3.5-5.0); Alkaline Phosphatase 97 U/L (38-126); Anion Gap 8 mmol/L; Blood Urea Nitrogen 33 mg/dL (9-20); Calcium 9.1 mg/dL (8.4-10.2); Carbon Dioxide 22 mmol/L (22-30); Chloride 106 mmol/L (98-107); Glucose 117 mg/dL (74-99); Magnesium 2.1 mg/dL (1.6-2.3); Non-African American GFR(CKD) 65 (>60 ml/min/1.73 sqM); Potassium 4.5 mmol/L (3.5-5.1); Sodium 136 mmol/L (137-145); Total Bilirubin 1.4 mg/dL (0.2-1.3); Total Protein 6.7 g/dL (6.3-8.2)
[2023-11-26 08:53] VITALS: RESP 18
[2023-11-26] MEDS ORDERED: PROPOFOL 10 MG/ML 20 ML VIAL IV ONE (09:44)
[2023-11-26] MEDS: LACTATED RINGERS 1,000 ML IV ONE (09:45)
--- NOTE | 2023-11-26 10:14 | P.EPPROC ---
- EP Procedure Note Electrophysiology Procedure Note: Diagnosis Persistent atrial fibrillation with CHF exacerbation Known cardiomyopathy on heart failure medications and anticoagulation with Eliquis Treated with IV amiodarone during this admission Procedure Successful electrical cardioversion under conscious sedation to sinus rhythm Plan Continue Eliquis 5 mg twice daily Continue atorvastatin carvedilol Entresto and spironolactone Stop IV Lasix and switch to oral Lasix 40 mg once daily Start oral amiodarone 200 mg p.o. daily Follow-up with Dr. Armstrong in 2 to 3 weeks post discharge Consider A-fib ablation
[2023-11-26] MEDS: AMIODARONE 200 MG TAB PO SCH (11:39)
[2023-11-26 12:26] VITALS: BP 119/71; PULSE 84; TEMP 98.2
--- NOTE | 2023-11-26 15:04 | P.PN ---
Subjective Progress Note Date: 11/26/23 Consult reason: atrial fibrillation, congestive heart failure History of present illness: This is a 68-year-old male patient of Dr. Armstrong with previous history of nonischemic cardiomyopathy status post AICD, chronic systolic heart failure, paroxysmal atrial fibrillation on Eliquis, hypertension, COPD, active tobacco use and dependence. We have been asked to evaluate the patient for CHF and atrial fibrillation. Patient presented to hospital due to shortness of breath that been going on for the past 1-2 weeks and worsening along with lower extremi ty edema. He missed his evening medications the day prior to presentation. No chest pain. Complains of palpitations. Patient presented with a blood pressure 151/120. He received 1 dose of Coreg 6.25 and IV Lasix 40 mg followed by 40 mg every 12 hours. He also received nebulizer treatment by EMS with improvement of his symptoms. EKG atrial fibrillation with ventricular rate of 115 bpm. Chest x-ray: Mild vascular congestion. WBC 9.2 hemoglobin 13.5. INR 1.1. Sodium 138, potassium 4.5, BUN 36 creatinine 1.22. Troponins negative x 2. proBNP 2670. Influenza A, influenza B, RSV, COVID-19 not detected. Urinalysis trace protein. Home cardiac medications: Atorvastatin 20 mg daily, Eliquis 5 mg daily, Coreg 12.5 mg daily, Lasix 40 mg daily, lisinopril 10 mg daily Echocardiogram performed in the office on 11/05/2023 revealed EF of 30 to 35%. Global LV hypokinesis with regional heterogeneity. Grade 2 diastolic dysfunction. Mild left ventricular hypertrophy. Mildly dilated right vent ricle. Moderately dilated left atrium and mildly dilated right atrium. Aortic valve is calcified. Ascending aorta is less than 4 cm. Moderate mitral regurgitation. Mild tricuspid regurgitation. Severely increased pulmonary artery systolic pressure of 65 mmHg. Physiologic pulmonary. Lexiscan Cardiolite stress test performed in the office on 01/06/2023 was inconclusive EKG part of the stress test due to baseline abnormalities. Ischemic cardiomyopathy secondary to prior extensive inferior wall myocardial infarction with severe LV dysfunction without any ischemia. AICD interrogation done most recently in 09/2023 revealed normal AICD standby function. No episodes of atrial fibrillation since previous visit. 11/24 Patient is seen today on the cardiac stepdown unit. Yesterday we had increased Coreg and increase Entresto, started patient on amiodarone bolus followed by drip and continued IV Lasix. Blood pressure 100/71, heart rate in the 60s to 80s, pulse ox 97% on room air. Repeat blood work reveals normal CBC. Sodium 136, potassium 4.1, BUN 33 creatinine 1.08. Patient is in atrial fibrillation/atrial flutter. ICD interrogation has been reviewed. Echocardiogram reveals dilated LV with severe LV dysfunction with EF of 25%, mild RV enlargement, biatrial enlargement. 11/25 This morning, patient underwent successful electrocardioversion by Dr. Armstrong with recommendations to continue Eliquis 5 mg twice daily, continue atorvastatin, carvedilol, Entresto and spironolactone. Transition IV Lasix to oral 40 mg daily and start patient on amiodarone 200 mg daily. Patient to fol low-up with Dr. Armstrong in 2 to 3 weeks. Patient states he is ready to go home today. He denies having any palpitations, lightheadedness or dizziness. No chest pain. Physical examination: Gen: This is a 68-year-old male. He is resting in bed and appears very comfortable and in no acute distress. VS: reviewed HEENT: Head is atraumatic, normocephalic. Pupils equal, round. Sclerae is anicteric. NECK: Supple. No JVD. LUNGS: Diminished breath sounds bilaterally. No wheezing. No intercostal retractions. HEART: Irregular rate and rhythm. No murmur. AICD left anterior chest wall ABDOMEN: Soft No tenderness. EXTREMITIES: Bilateral lower extremity edema. No calf tenderness. NEUROLOGICAL: Patient is awake, alert and oriented x3. Assessment: Acute on chronic systolic heart failure Nonischemic cardiomyopathy status post AICD Paroxysmal atrial fibrillation with RVR currently sinus rhythm Hypertension COPD Active tobacco use and dependence Plan: Continue patient's home cardiac medications continue Coreg 25 mg twice daily, Entresto 49 mg - 51 mg twice daily Continue patient on amiodarone 200 mg daily Continue oral Lasix 40 mg daily Patient is cleared for discharge from cardiology and may follow-up with Dr. Armstrong in the office in 2 to 3 weeks. Nurse practitioner note has been reviewed, I agree with documented findings and plan of care. Patient was seen and examined. Objective - Vital Signs Vital signs: Vital Signs Temp 98.2 F 04/24/24 11:44 Pulse 84 11/26/23 11:50 Resp 18 11/26/23 11:50 BP 119/71 11/26/23 11:44 Pulse Ox 93 L 11/26/23 11:44 FiO2 Intake & Output 11/25/23 11/26/23 11/26/23 18:59 06:59 18:59 Intake Total 1330 480 100 Output Total 600 700 Balance 730 480 -600 Weight 116.2 kg Intake: IV 100 Intake, IV Titration 250 Amount Amiodarone 450 mg In 250 Dextrose 5% in Water 250 ml @ 0.5 MG/MIN 16.667 mls/hr IV .Q15H YVES Rx#: [id number] Oral 1080 480 Output: Urine 600 700 Other: Voiding Method Toilet # Voids 1 - Labs CBC & Chem 7: 11/26/23 06:41 11/26/23 06:41 Labs: Abnormal Lab Results - Last 24 Hours (Table) 11/26/23 Range/Units 06:41 Sodium 136 L (137-145) mmol/L BUN 33 H (9-20) mg/dL Glucose 117 H (74-99) mg/dL Total Bilirubin 1.4 H (0.2-1.3) mg/dL
--- NOTE | 2023-11-26 15:20 | P.DS ---
Providers Date of admission: 11/24/23 05:29 Expected date of discharge: 11/26/23 Attending physician: Angel Luis Campos Consults: 11/24/23 05:29 Consult Physician Routine Consulting Provider: [facility] Consult Reason/Comments: chf, afib Do you want consulting provider notified?: Yes Primary care physician: Angel Luis Campos Hospital Course: HISTORY OF PRESENT ILLNESS: This is a 68-year-old male with a previous medical history significant for nonischemic cardiomyopathy status post ICD implantation, paroxysmal atrial fibrillation, hypertension and hypertensive cardiovascular disease, hyperlipidemia, enlarged prostate, history of spondylosis of the cervical spine was recently evaluated in the office on the of this month with increased numbness in both upper extremities associated with increased pain in the neck, he was supposed to go and follow-up with Dr. Biggs from spine surgery, patient apparently was in his usual state of health till about few days ago when he started to have increased shortness of breath associated with increased swelling both lower extremities, patient was not able to sleep much at night because of increased shortness of breath, so he came to the emergency department at [facility] today he was found to have an atrial fibrillation with rapid ventricular response his heart rate was around 1 25-1 30, he was seen in c onsultation by cardiology in the ER, his carvedilol was increased to 12.5 mg orally twice every day he was kept on Eliquis 5 mg orally twice every day, he was admitted to the hospital for further evaluation and recommendation, patient did have a chest x-ray that showed pulmonary vascular congestion patient will be admitted to the hospital for further evaluation by cardiology and for optimization of his nonischemic cardiomyopathy and using guideline directed medical therapy GDMT. 11/24: Patient was started yesterday on amiodarone drip due to his atrial fibrillation with rapid ventricular response, he was converted to a normal sinus rhythm, he will likely be switched tomorrow to oral amiodarone 400 mg orally twice every day, continue with carvedilol 25 mg orally twice every day, continue Eliquis 5 mg orally twice every day, patient has been followed by cardiology as well, patient is feeling a lot better today he denies any chest pain, he is less short of breath, is diuresing very well, he has no edema in both lower extremities today. 11/25: Patient is laying down in bed in no apparent distress, he has been in sinus rhythm since yesterday, he was switched to oral amiodarone 200 mg. Today, his medication were adjusted his Entresto was increased to 49/51 mg orally twice every day carvedilol 25 mg orally twice every day, he was taken off losartan completely, continue spironolactone, added Lasix 40 mg once every day, patient will follow-up with me as an outpatient 1 week from now. Discharge diagnoses: 1. Atrial fibrillation with rapid ventricular response. Back into sinus rhythm. 2. Acute on chronic systolic heart failure due to nonischemic cardiomyopathy. 3. Hypertension and hypertensive cardiovascular disease. 4. Mixed hyperlipidemia. 5. 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 Enlarged prostate. Monitor for urinary retention. Patient Condition at Discharge: Stable Plan - Discharge Summary Discharge Rx Participant: No New Discharge Prescriptions: New Amiodarone [Cordarone] 200 mg PO DAILY #30 tab carvediloL [Coreg*] 25 mg PO AC-BID #60 tab Sacubitril/Valsartan [Entresto 49 mg-51 mg Tablet] 1 each PO BID #60 tab Furosemide [Lasix] 40 mg PO DAILY #30 tab Continue Apixaban [Eliquis] 5 mg PO BID Atorvastatin [Lipitor] 20 mg PO HS #30 tab Baclofen [Lioresal] 10 mg PO BID PRN PRN Reason: Muscle Spasm Spironolactone 12.5 mg PO DAILY Omeprazole 20 mg PO DAILY HYDROcodone/APAP 7.5-325MG [[place] 7.5-325] 1 tab PO Q12H PRN PRN Reason: Pain Discontinued Sacubitril/Valsartan [Entresto 24 mg-26 mg Tablet] 1 tab PO BID carvediloL [Coreg] 12.5 mg PO BID Losartan [Cozaar] 50 mg PO HS Discharge Medication List Apixaban [Eliquis] 5 mg PO BID 10/31/22 [History] Atorvastatin [Lipitor] 20 mg PO HS #30 tab 11/01/22 [Rx] Baclofen [Lioresal] 10 mg PO BID PRN 03/24/23 [History] Omeprazole 20 mg PO DAILY 03/24/23 [History] HYDROcodone/APAP 7.5-325MG [[place] 7.5-325] 1 tab PO Q12H PRN 11/24/23 [History] Spironolactone 12.5 mg PO DAILY 11/24/23 [History] Amiodarone [Cordarone] 200 mg PO DAILY #30 tab 11/26/23 [Rx] Furosemide [Lasix] 40 mg PO DAILY #30 tab 11/26/23 [Rx] Sacubitril/Valsartan [Entresto 49 mg-51 mg Tablet] 1 each PO BID #60 tab 11/26/23 [Rx] carvediloL [Coreg*] 25 mg PO AC-BID #60 tab 11/26/23 [Rx] Follow up Appointment(s)/Referral(s): Angel Luis Campos MD [Primary Care Provider] - 1 Week Patient Instructions/Handouts: A-fib (Atrial Fibrillation) (DC), Cardioversion (DC)
[2023-11-27] MEDS ORDERED: FUROSEMIDE 40 MG TAB PO SCH (09:00)
== END 2023-11-26 15:00 | disposition home or self-care (01) | DRG 308 ==
LOC: EC 02:51 → 3SCARD 05:29
PROVIDERS: ADMIT Internal Medicine; ATTEND Internal Medicine
PROC: 5A2204Z Restoration of Cardiac Rhythm, Single (ICD-10-PCS; principal; 2023-11-26 07:30)
DX: I48.19 Other persistent atrial fibrillation (principal); I50.23 Acute on chronic systolic (congestive) heart failure; M47.12 Other spondylosis with myelopathy, cervical region; I42.8 Other cardiomyopathies; I11.0 Hypertensive heart disease with heart failure; I48.92 Unspecified atrial flutter; J44.9 Chronic obstructive pulmonary disease, unspecified; I08.1 Rheumatic disorders of both mitral and tricuspid valves; E78.2 Mixed hyperlipidemia; N40.0 Benign prostatic hyperplasia without lower urinary tract symptoms; I25.5 Ischemic cardiomyopathy; M47.22 Other spondylosis with radiculopathy, cervical region; I25.10 Atherosclerotic heart disease of native coronary artery without angina pectoris; R09.02 Hypoxemia; Z95.810 Presence of automatic (implantable) cardiac defibrillator; Z87.891 Personal history of nicotine dependence; I25.2 Old myocardial infarction; Z79.01 Long term (current) use of anticoagulants; Z11.52 Encounter for screening for COVID-19; Z79.899 Other long term (current) drug therapy; Z82.49 Family history of ischemic heart disease and other diseases of the circulatory system
CPT/HCPCS: 36415; 71046; 80053; 81003; 83735; 83880; 84443; 84484; 85025; 85610; 85730; 87636; 92960; 93005; 93306; 94760; 96365; 96375; 96376; 99291

== ENCOUNTER → 2024-02-10 | Outpatient (CLI) | payer MEDICARE, OTHER ==
--- NOTE | 2024-02-10 09:39 | US ---
EXAMINATION TYPE: US kidneys/renal and bladder DATE OF EXAM: 02/10/2024 COMPARISON: NONE CLINICAL INDICATION: Male, 68 years old with history of N28.9 ABN KIDNEY FUNCTION; Abnormal renal fun ction test. EXAM MEASUREMENTS: Right Kidney: 9.7 x 5.9 x 4.7 cm Left Kidney: 9.2 x 5.3 x 4.3 cm Right Kidney: No hydronephrosis or masses seen Left Kidney: No hydronephrosis or masses seen Bladder: wnl Bilateral Jets seen: Yes IMPRESSION: 1. Unremarkable retroperitoneal ultrasound
== END | disposition home or self-care (01) ==
LOC: RADUSWWP 09:13
PROVIDERS: ATTEND Internal Medicine
DX: N28.9 Disorder of kidney and ureter, unspecified (principal); R94.4 Abnormal results of kidney function studies
CPT/HCPCS: 76770

== ENCOUNTER 2024-02-17 12:51 | Inpatient (IN) | payer MEDICARE, OTHER ==
--- NOTE | 2024-02-17 13:22 | ED ---
General Adult HPI - General Chief complaint: Dizziness Stated complaint: Dizziness Time Seen by Provider: 02/17/24 13:02 Source: patient, family, RN notes reviewed Mode of arrival: wheelchair Limitations: no limitations - History of Present Illness Initial comments: Patient is a pleasant 68-year-old male present to the emergency department with dizziness. Symptoms have progressed over the past 2 weeks. Patient has been feeling very lightheaded. Patient has needed assistance at times to walk. Patient has some blurry vision. No spinning sensation. When patient got out of the car today he did fall down. Patient unclear if he lost consciousness or not. No head injury or neck injury. No chest or back pain. No abdominal pain. No dyspnea. No history of similar symptoms previously - Related Data Home Medications Medication Instructions Recorded Confirmed Apixaban [Eliquis] 5 mg PO BID 10/31/22 11/24/23 Baclofen [Lioresal] 10 mg PO BID PRN 03/24/23 11/24/23 Omeprazole 20 mg PO DAILY 03/24/23 11/24/23 HYDROcodone/APAP 7.5-325MG [[place] 1 tab PO Q12H PRN 11/24/23 11/24/23 7.5-325] Spironolactone 12.5 mg PO DAILY 11/24/23 11/24/23 Previous Rx's Medication Instructions Recorded Atorvastatin [Lipitor] 20 mg PO HS #30 tab 11/01/22 Amiodarone [Cordarone] 200 mg PO DAILY #30 tab 11/26/23 Furosemide [Lasix] 40 mg PO DAILY #30 tab 11/26/23 Sacubitril/Valsartan [Entresto 49 1 each PO BID #60 tab 11/26/23 mg-51 mg Tablet] carvediloL [Coreg*] 25 mg PO AC-BID #60 tab 11/26/23 Allergies Allergy/AdvReac Type Severity Reaction Status Date / Time No Known Allergies Allergy Verified 02/17/24 12:58 Review of Systems ROS Statement: Those systems with pertinent positive or pertinent negative responses have been documented in the HPI. ROS Other: All systems not noted in ROS Statement are negative. Constitutional: Denies: fever Eyes: Denies: eye pain ENT: Denies: ear pain Respiratory: Denies: cough, dyspnea Cardiovascular: Denies: chest pain Endocrine: Denies: fatigue Gastrointestinal: Denies: abdominal pain, nausea, vomiting Genitourinary: Denies: urgency, dysuria Musculoskeletal: Denies: back pain Neurological: Reports: as per HPI. Denies: headache, weakness Past Medical History Past Medical History: Coronary Artery Disease (CAD), COPD, Myocardial Infarction (IN) Additional Past Medical History / Comment(s): CHF Last Myocardial Infarction Date:: unk History of Any Multi-Drug Resistant Organisms: None Reported Past Surgical History: Hernia Repair Additional Past Surgical History / Comment(s): hernia repair Past Anesthesia/Blood Transfusion Reactions: No Reported Reaction Type of Cardiac Device: AICD Device Placement Date:: 2016 Past Psychological History: No Psychological Hx Reported Smoking Status: Current every day smoker General Exam Limitations: no limitations General appearance: alert, in no apparent distress Head exam: Present: normocephalic Eye exam: Present: normal appearance, PERRL, EOMI Neck exam: Present: normal inspection. Absent: tenderness, meningismus Respiratory exam: Present: normal lung sounds bilaterally Cardiovascular Exam: Present: regular rate, normal rhythm GI/Abdominal exam: Present: soft. Absent: tenderness Back exam: Present: normal inspection Neurological exam: Present: alert, oriented X3, CN II-XII intact. Absent: motor sensory deficit Expanded Neurological exam: Present: protecting the airway Patient oriented to: Present: person, place, time Speech: Present: fluid speech Cranial nerves: EOM's Intact: Normal Motor strength exam: RUE: 5, LUE: 5, RLE: 5, LLE: 5 Eye Response: (4) open spontaneously Motor Response: (6) obeys commands Verbal Response: (5) oriented Psychiatric exam: Present: normal affect, normal mood Skin exam: Present: normal color Course Vital Signs 02/17/24 02/17/24 02/17/24 12:53 13:27 14:32 Pulse Rate 54 L 55 L 54 L Respiratory 16 20 18 Rate Blood Pressure 91/50 89/50 O2 Sat by Pulse 92 L 96 Oximetry EKG Findings - EKG Results: EKG: interpreted by ERMD (Left axis. Intraventricular conduction delay. Lateral T wave inversion), sinus rhythm EKG shows: bradycardia Medical Decision Making - Medical Decision Making Was pt. sent in by a medical professional or institution (, PA, [employer], urgent care, hospital, or snf...) When possible be specific @ -No Did you speak to anyone other than the patient for history (EMS, parent, family, police, friend...)? What history was obtained from this source @ - is present helps provide history including onset of symptoms Did you review nursing and triage notes (agree or disagree)? Why? @ -I reviewed and agree with nursing and triage notes Were old charts reviewed (outside hosp., previous admission, EMS record, old EK G, old radiological studies, urgent care reports/EKG's, snf records)? Report findings @ -Previous renal function reviewed, different from Differential Diagnosis (chest pain, altered mental status, abdominal pain women, abdominal pain men, vaginal bleeding, weakness, fever, dyspnea, syncope, headache, dizziness, GI bleed, back pain, seizure, CVA, palpatations, mental health, musculoskeletal)? @ -Differential Dizziness: Benign paroxysmal positional Vertigo, Menieres disease, otitis media, acoustic neuroma, vertebrobasilar insufficiency, cerebellar stroke, encephalitis, hypovolemic, arrhythmia, coronary artery syndrome, anemia, this is not meant to be an all-inclusive list EKG interpreted by me (3pts min.). @ -As above X-rays interpreted by me (1pt min.). @ -2 view chest x-ray does not reveal acute abnormality. CT interpreted by me (1pt min.). @ -CT scan of the brain shows atrophy. U/S interpreted by me (1pt. min.). @ -None done What testing was considered but not performed or refused? (CT, X-rays, U/S, labs)? Why? @ -None What meds were considered but not given or refused? Why? @ -None Did you discuss the management of the patient with other professionals (bowen vazquez i.e. , PA, [employer], lab, RT, psych nurse, psychosocial rehabilitation counselor, continuous process rotary drum tanner, teacher, tactical debriefer officer, protective services case worker)? Give summary @ -Case discussed with Dr. Campos who will admit his patient. Was smoking cessation discussed for >3mins.? @ -No Was critical care preformed (if so, how long)? @ -33 minutes critical care time Were there social determinants of health that impacted care today? How? (Homelessness, low income, unemployed, alcoholism, drug addiction, transportation, low edu. Level, literacy, decrease access to med. care, prison, rehab)? @ -No Was there de-escalation of care discussed even if they declined (Discuss DNR or withdrawal of care, Hospice)? DNR status @ -No What co-morbidities impacted this encounter? (DM, HTN, Smoking, COPD, CAD, Cancer, CVA, ARF, Chemo, Hep., AIDS, mental health diagnosis, sleep apnea, morbid obesity)? @ -None Was patient admitted / discharged? Hospital course, mention meds given and route, prescriptions, significant lab abnormalities, going to OR and other pertinent info. @ -Patient presents with dizziness and syncopal episode and hypotension related with acute kidney injury. Symptoms improving with fluids. Patient will be admitted with nephrology consult. Admission orders written. Undiagnosed new problem with uncertain prognosis? @ -No Drug Therapy requiring intensive monitoring for toxicity (Heparin, Nitro, Insulin, Cardizem)? @ -No Were any procedures done? @ -No Diagnosis/symptom? @ -Syncope, hypotension, MICHELLE Acute, or Chronic, or Acute on Chronic? @ -Acute, acute, acute Uncomplicated (without systemic symptoms) or Complicated (systemic symptoms)? @ -MICHELLE is complicated with hypotension and syncope Side effects of treatment? @ -No Exacerbation, Progression, or Severe Exacerbation? @ -No Poses a threat to life or bodily function? How? (Chest pain, [place], [place], pneumonia, PE, COPD, DKA, ARF, appy, cholecystitis, CVA, Diverticulitis, Homicidal, Suicidal, threat to staff... and all critical care pts) @ -Hypoperfusion causing hypotension - Lab Data Result diagrams: 02/17/24 13:22 02/17/24 13:22 Lab Results 02/17/24 02/17/24 02/17/24 Range/Units 13:22 13:22 13:22 WBC 9.0 (3.8-10.6) k/uL RBC 5.74 (4.30-5.90) m/uL Hgb 16.0 (13.0-17.5) gm/dL Hct 51.2 (39.0-53.0) % MCV 89.3 (80.0-100.0) fL MCH 27.9 (25.0-35.0) pg MCHC 31.3 (31.0-37.0) g/dL RDW 17.0 H (11.5-15.5) % Plt Count 242 (150-450) k/uL MPV 7.8 Neutrophils % 73 % Lymphocytes % 15 % Monocytes % 8 % Eosinophils % 2 % Basophils % 0 % Neutrophils # 6.5 (1.3-7.7) k/uL Lymphocytes # 1.4 (1.0-4.8) k/uL Monocytes # 0.7 (0-1.0) k/uL Eosinophils # 0.2 (0-0.7) k/uL Basophils # 0.0 (0-0.2) k/uL Anisocytosis Slight PT 12.4 (10.0-12.5) sec INR 1.2 H (<1.2) APTT 27.3 (22.0-30.0) sec Sodium 138 (137-145) mmol/L Potassium 4.6 (3.5-5.1) mmol/L Chloride 106 (98-107) mmol/L Carbon Dioxide 20 L (22-30) mmol/L Anion Gap 12 mmol/L BUN 89 H (9-20) mg/dL Creatinine 3.20 H (0.66-1.25) mg/dL Est GFR (CKD-EPI)AfAm 22 (>60 ml/min/1.73 sqM) Est GFR (CKD-EPI)NonAf 19 (>60 ml/min/1.73 sqM) Glucose 119 H (74-99) mg/dL Plasma Lactic Acid Shawn (0.7-2.0) mmol/L Calcium 9.6 (8.4-10.2) mg/dL Magnesium 2.4 H (1.6-2.3) mg/dL Total Bilirubin 1.1 (0.2-1.3) mg/dL AST 24 (17-59) U/L ALT 26 (4-49) U/L Alkaline Phosphatase 58 (38-126) U/L Troponin I (0.000-0.034) ng/mL Total Protein 7.2 (6.3-8.2) g/dL Albumin 4.6 (3.5-5.0) g/dL Urine Color Urine Appearance (Clear) Urine pH (5.0-8.0) Ur Specific [place] (1.001-1.035) Urine Protein (Negative) Urine Glucose (UA) (Negative) Urine Ketones (Negative) Urine Blood (Negative) Urine Nitrite (Negative) Urine Bilirubin (Negative) Urine Urobilinogen (<2.0) mg/dL Ur Leukocyte Esterase (Negative) 02/17/24 02/17/24 02/17/24 Range/Units 13:22 13:22 13:22 WBC (3.8-10.6) k/uL RBC (4.30-5.90) m/uL Hgb (13.0-17.5) gm/dL Hct (39.0-53.0) % MCV (80.0-100.0) fL MCH (25.0-35.0) pg MCHC (31.0-37.0) g/dL RDW (11.5-15.5) % Plt Count (150-450) k/uL MPV Neutrophils % % Lymphocytes % % Monocytes % % Eosinophils % % Basophils % % Neutrophils # (1.3-7.7) k/uL Lymphocytes # (1.0-4.8) k/uL Monocytes # (0-1.0) k/uL Eosinophils # (0-0.7) k/uL Basophils # (0-0.2) k/uL Anisocytosis PT (10.0-12.5) sec INR (<1.2) APTT (22.0-30.0) sec Sodium (137-145) mmol/L Potassium (3.5-5.1) mmol/L Chloride (98-107) mmol/L Carbon Dioxide (22-30) mmol/L Anion Gap mmol/L BUN (9-20) mg/dL Creatinine (0.66-1.25) mg/dL Est GFR (CKD-EPI)AfAm (>60 ml/min/1.73 sqM) Est GFR (CKD-EPI)NonAf (>60 ml/min/1.73 sqM) Glucose (74-99) mg/dL Plasma Lactic Acid Shawn 2.2 H* (0.7-2.0) mmol/L Calcium (8.4-10.2) mg/dL Magnesium (1.6-2.3) mg/dL Total Bilirubin (0.2-1.3) mg/dL AST (17-59) U/L ALT (4-49) U/L Alkaline Phosphatase (38-126) U/L Troponin I 0.036 H* (0.000-0.034) ng/mL Total Protein (6.3-8.2) g/dL Albumin (3.5-5.0) g/dL Urine Color Colorless Urine Appearance Clear (Clear) Urine pH 5.0 (5.0-8.0) Ur Specific [place] 1.009 (1.001-1.035) Urine Protein Trace H (Negative) Urine Glucose (UA) 1+ H (Negative) Urine Ketones Negative (Negative) Urine Blood Negative (Negative) Urine Nitrite Negative (Negative) Urine Bilirubin Negative (Negative) Urine Urobilinogen <2.0 (<2.0) mg/dL Ur Leukocyte Esterase Negative (Negative) Disposition Clinical Impression: Acute kidney injury Disposition: ADMITTED IP TO THIS [facility] Condition: Serious Is patient prescribed a controlled substance at d/c from ED?: No Referrals: Angel Luis Campos MD [Primary Care Provider] - 1-2 days Time of Disposition: 15:36
[2024-02-17] MEDS: SODIUM CHLORIDE 0.9% 1,000 ML IV STA ×2 (13:27→14:32)
--- NOTE | 2024-02-17 13:52 | CT ---
EXAMINATION TYPE: CT brain wo con DATE OF EXAM: 02/17/2024 COMPARISON: None HISTORY: Weakness CT DLP: 1223.[address] of the brain was performed. The ventricles, basal cisterns and sulci overlying the cerebral convexities demonstrate mild enlargem ent. There is no evidence for intracranial hemorrhage or sulcal effacement. There is decreased attenuation about the periventricular white matter and deep white matter of both c erebral hemispheres, compatible with chronic small vessel ischemia. Differential diagnosis does inclu de demyelination. No mass effects are seen.No midline shift. Osseous calvarium is intact. If symptoms persist consider MRI. IMPRESSION: 1. Age related atrophic and chronic small vessel ischemic change without acute intracranial process s een at this time.
[2024-02-17 14:11] LABS: Anisocytosis Slight; Basophils % (A) 0 %; Eosinophils # (A) 0.2 k/uL (0-0.7); Eosinophils % (A) 2 %; HCT 51.2 % (39.0-53.0); Lymphocytes # (A) 1.4 k/uL (1.0-4.8); Lymphocytes % (A) 15 %; MCH 27.9 pg (25.0-35.0); MCHC 31.3 g/dL (31.0-37.0); MCV 89.3 fL (80.0-100.0); Mean Platelet Volume 7.8; Monocytes # (A) 0.7 k/uL (0-1.0); Monocytes % (A) 8 %; Neutrophils # (A) 6.5 k/uL (1.3-7.7); Neutrophils % (A) 73 %; Platelet Count 242 k/uL (150-450); RBC 5.74 m/uL (4.30-5.90)
[2024-02-17 14:23] LABS: INR 1.2 (<1.2); Partial Thromboplastin Time 27.3 sec (22.0-30.0); Prothrombin Time 12.4 sec (10.0-12.5)
[2024-02-17 14:30] LABS: ALT 26 U/L (4-49); AST 24 U/L (17-59); African American GFR (CKD) 22 (>60 ml/min/1.73 sqM); Albumin 4.6 g/dL (3.5-5.0); Alkaline Phosphatase 58 U/L (38-126); Anion Gap 12 mmol/L; Blood Urea Nitrogen 89 mg/dL (9-20); Calcium 9.6 mg/dL (8.4-10.2); Carbon Dioxide 20 mmol/L (22-30); Chloride 106 mmol/L (98-107); Glucose 119 mg/dL (74-99); Magnesium 2.4 mg/dL (1.6-2.3); Non-African American GFR(CKD) 19 (>60 ml/min/1.73 sqM); Potassium 4.6 mmol/L (3.5-5.1); Sodium 138 mmol/L (137-145); Total Bilirubin 1.1 mg/dL (0.2-1.3); Total Protein 7.2 g/dL (6.3-8.2)
[2024-02-17 14:57] LABS: Appearance,Urine Clear (Clear); Bilirubin,Urine Negative (Negative); Blood,Urine Negative (Negative); Color,Urine Colorless; Glucose,Urine (UA) 1+ (Negative); Ketones,Urine Negative (Negative); Leukocyte Esterase,Urine Negative (Negative); Nitrite,Urine Negative (Negative); Protein,Urine Trace (Negative); Specific Gravity,Urine 1.009 (1.001-1.035); Urobilinogen,Urine <2.0 mg/dL (<2.0)
--- NOTE | 2024-02-17 14:58 | XR ---
EXAMINATION TYPE: XR chest 2V DATE OF EXAM: 02/17/2024 COMPARISON: 11/24/2023 INDICATION: Lethargic, acute mental status changes TECHNIQUE: Frontal and lateral views of the chest are obtained. FINDINGS: The heart size is normal. The pulmonary vasculature is normal. The lungs are clear. Asymmetric overlies left chest. IMPRESSION: 1. No acute pulmonary process.
[2024-02-17] MEDS ORDERED: ACETAMINOPHEN TAB 325 MG TAB PO PRN (15:36)
[2024-02-17] MEDS ORDERED: NALOXONE 0.4 MG/ML 1 ML VIAL IV PRN (15:36)
--- NOTE | 2024-02-17 16:16 | US ---
EXAMINATION TYPE: US kidneys/renal and bladder DATE OF EXAM: 02/17/2024 COMPARISON: NONE CLINICAL INDICATION: Male, 68 years old with history of michelle; MICHELLE EXAM MEASUREMENTS: Right Kidney: 10.9 x 4.9 x 4.9 cm Left Kidney: 9.2 x 6.1 x 4.5 cm Right Kidney: No hydronephrosis or masses seen Left Kidney: No hydronephrosis or masses seen Bladder: anechoic Bilateral Jets seen: No There is no evidence for hydronephrosis at this point in time. No nephrolithiasis is seen. No havrey s are identified. The urinary bladder is anechoic. Bilateral ureteral jets are seen. IMPRESSION: Unremarkable study.
[2024-02-17] MEDS: SODIUM CHLORIDE 0.9% 1,000 ML IV SCH (16:50)
[2024-02-17] MEDS: ATORVASTATIN 20 MG TAB PO SCH (20:11)
[2024-02-17] MEDS: carvediloL 12.5 MG TAB PO SCH (20:11)
[2024-02-17] MEDS: APIXABAN 5 MG TAB PO SCH (20:11)
[2024-02-17] MEDS ORDERED: FAMOTIDINE 20 MG TAB PO SCH (21:00)
[2024-02-18 07:40] LABS: Anisocytosis Slight; Basophils % (A) 1 %; Eosinophils # (A) 0.2 k/uL (0-0.7); Eosinophils % (A) 3 %; HCT 51.2 % (39.0-53.0); HGB 15.7 gm/dL (13.0-17.5); Lymphocytes # (A) 1.5 k/uL (1.0-4.8); Lymphocytes % (A) 21 %; MCH 27.7 pg (25.0-35.0); MCHC 30.7 g/dL (31.0-37.0); MCV 90.3 fL (80.0-100.0); Mean Platelet Volume 8.2; Monocytes # (A) 0.7 k/uL (0-1.0); Monocytes % (A) 10 %; Neutrophils # (A) 4.4 k/uL (1.3-7.7); Neutrophils % (A) 63 %; Platelet Count 209 k/uL (150-450); RBC 5.67 m/uL (4.30-5.90)
[2024-02-18 08:15] LABS: ALT 24 U/L (4-49); AST 21 U/L (17-59); African American GFR (CKD) 35 (>60 ml/min/1.73 sqM); Albumin 4.2 g/dL (3.5-5.0); Alkaline Phosphatase 72 U/L (38-126); Anion Gap 11 mmol/L; Blood Urea Nitrogen 75 mg/dL (9-20); Calcium 9.4 mg/dL (8.4-10.2); Carbon Dioxide 21 mmol/L (22-30); Chloride 110 mmol/L (98-107); Glucose 94 mg/dL (74-99); Magnesium 2.2 mg/dL (1.6-2.3); Non-African American GFR(CKD) 30 (>60 ml/min/1.73 sqM); Phosphorus 3.7 mg/dL (2.5-4.5); Sodium 142 mmol/L (137-145); Total Bilirubin 0.6 mg/dL (0.2-1.3); Total Protein 6.9 g/dL (6.3-8.2)
[2024-02-18] MEDS: FAMOTIDINE 20 MG TAB PO SCH (08:19)
--- NOTE | 2024-02-18 11:18 | P.NPCON ---
History of Present Illness - Reason for Consult acute renal failure - History of Present Illness Reason for consultation: Acute kidney injury History of present illness: Patient is a 68-year-old male seen in renal consultation for acute kidney injury. Patient was seen and examined in the emergency room. Patient's creatinine admission was 3.2 and is improved to 2.18 today. Creatinine in November 2023 noted to be near 1.1. Patient came to the hospital due to generalized weakness and dizziness. Patient states he felt lightheaded and had to hold onto furniture to prevent himself from falling. Patient did fall in the hospital once. He denies losing any consciousness. He denies use of nonsteroidals. Denies family history of renal disease. No history of diabetes. Patient does have history of systolic CHF ejection fraction of 20 to 25% with moderate to severe mitral regurgitation. Denies edema. Denies gross hematuria or dysuria. Blood pressure was in the systolic 90s on admission and did receive a liter of normal saline. Currently receiving normal saline at 75 cc an hour. Vital signs are stable. General: No acute distress. HEENT: Head exam is unremarkable. LUNGS: No audible rhonchi or wheezes. HEART: Rate and Rhythm are regular. ABDOMEN: Nontender. EXTREMITITES: No edema. Past Medical History Past Medical History: Coronary Artery Disease (CAD), COPD, Myocardial Infarction (OR) Additional Past Medical History / Comment(s): CHF Last Myocardial Infarction Date:: unk History of Any Multi-Drug Resistant Organisms: None Reported Past Surgical History: Hernia Repair Additional Past Surgical History / Comment(s): hernia repair Past Anesthesia/Blood Transfusion Reactions: No Reported Reaction Type of Cardiac Device: AICD Device Placement Date:: 2016 Past Psychological History: No Psychological Hx Reported Smoking Status: Current every day smoker Medications and Allergies Home Medications Medication Instructions Recorded Confirmed Type Apixaban [Eliquis] 5 mg PO BID 10/31/22 02/17/24 History Atorvastatin [Lipitor] 20 mg PO HS #30 tab 11/01/22 02/17/24 Rx Baclofen [Lioresal] 10 mg PO BID PRN 03/24/23 02/17/24 History Omeprazole 20 mg PO DAILY 03/24/23 02/17/24 History HYDROcodone/APAP 7.5-325MG [[place] 1 tab PO Q12H PRN 11/24/23 02/17/24 History 7.5-325] Spironolactone 12.5 mg PO DAILY 11/24/23 02/17/24 History Amiodarone [Cordarone] 200 mg PO DAILY #30 tab 11/26/23 02/17/24 Rx Furosemide [Lasix] 40 mg PO DAILY #30 tab 11/26/23 02/17/24 Rx Empagliflozin [Jardiance] 10 mg PO DIRECTED 02/17/24 02/17/24 History Sacubitril/Valsartan [Entresto 24 1 tab PO BID 02/17/24 02/17/24 History mg-26 mg Tablet] carvediloL [Coreg] 12.5 mg PO BID 02/17/24 02/17/24 History Allergies Allergy/AdvReac Type Severity Reaction Status Date / Time No Known Allergies Allergy Verified 02/17/24 15:49 Physical Exam Vitals: Vital Signs Pulse Resp BP Pulse Ox 02/18/24 10:00 57 L 18 119/62 96 02/18/24 09:00 60 18 166/62 02/18/24 07:51 58 L 18 108/74 98 02/18/24 04:54 61 16 110/58 94 L 02/18/24 00:52 57 L 18 120/71 94 L 02/17/24 22:06 58 L 16 157/63 02/17/24 18:00 50 L 18 122/68 96 02/17/24 17:31 51 L 18 124/78 95 02/17/24 15:32 54 L 18 102/64 96 02/17/24 14:32 54 L 18 89/50 96 02/17/24 13:27 55 L 20 91/50 02/17/24 12:53 54 L 16 92 L Intake and Output 02/17/24 02/18/24 02/18/24 22:59 06:59 14:59 Output Total 1300 Balance -1300 Output: Urine 1300 Results - Lab Results Most recent lab results Calcium 9.4 mg/dL (8.4-10.2) 02/18/24 05:49 Phosphorus 3.7 mg/dL (2.5-4.5) 02/18/24 05:49 Magnesium 2.2 mg/dL (1.6-2.3) 02/18/24 05:49 02/18/24 05:49 02/18/24 05:49 Assessment and Plan Plan: Assessment: 1. Acute kidney injury secondary to ATN secondary to hypotension further worsen with the use of antihypertensives, diuretics and SGLT2 inhibitor. Creatinine 3.2 on admission and is 2.1 today. Creatinine in November 2023 was near 1.1. UA fairly benign. No hydronephrosis noted on kidney ultrasound. 2. Chronic systolic CHF ejection fraction of 20 to 25% with moderate to severe mitral regurgitation. 3. Metabolic acidosis secondary to acute kidney injury and lactic acidosis. Improved. Plan: Maintain IV fluids. Continue to hold antihypertensives. Avoid nephrotoxins. Continue to monitor renal function and urine output. Thank you for the consultation. I will continue to follow the patient with you during his hospital stay.
--- NOTE | 2024-02-18 13:51 | P.HPIM ---
History of Present Illness H&P Date: 02/17/24 Chief Complaint: Acute kidney injury due to vasomotor nephropathy HISTORY OF PRESENT ILLNESS: This is a 68-year-old male with a previous medical history significant for nonischemic cardiomyopathy status post ICD implantation, paroxysmal atrial fibrillation, hypertension and hypertensive cardiovascular disease, hyperlipidemia, enlarged prostate, history of spondylosis of the cervical spine patient was recently hospitalized at [facility] in November 2023 after he was admitted for what appears to be in atrial fibrillation with rapid ventricular response, and he was discharged home in stable condition, apparently patient presented to the emergency department at [facility] today because of generalized weakness and he was found to be significantly hypotensive, at about the same time he was found to have an acute kidney injury with a BUN of 89 and creatinine 3.3, his baseline creatinine is normal with a GFR of 82, patient appears to be quite dehydrated with some lactic acidosis as well his lactic acid was 2.2, patient was given IV fluid resuscitation, he was admitted to the hospital for evaluation by nephrology, ultrasound of the kidneys was unremarkable with no evidence of hydronephrosis, patient had a chest x-ray that did not show evidence of acute disease process, his EKG shows sinus bradycardia with T wave inversion in the anterolateral leads suggestive of ischemia, he also had a CT scan of the brain did not show evidence of acute abnormalities, patient was admitted to the hospital he was started on IV fluid resuscitation, nephrology consultation will be obtained. REVIEW OF SYSTEMS: Constitutional: No documented fever, no chills, no night sweats. No weight change. No weakness, fatigue or lethargy. No daytime sleepiness. EENT: No headache. No blurred vision or double vision, no loss of vision. No loss of Hearing, no ringing in the ears, no dizziness. No nasal drainage or congestion. No epistaxis. No sore throat. Lungs: positive for shortness of breath, no cough, no sputum production. No wheezing. Reports dyspnea with activity. Cardiovascular: No chest pain, positive for lower extremity edema. positive for palpitations. positive for paroxysmal nocturnal dyspnea. positive for orthopnea. No lightheadedness or dizziness. No syncopal episodes. Abdominal: Reports abdominal pain. No nausea, vomiting. No diarrhea. No constipation. No bloody or tarry stools reports loss of appetite. Genitourinary: No dysuria, increased frequency, urgency. No urinary retention. Musculoskeletal: No myalgias. positive for muscle weakness, no gait dysfunction, no frequent falls. No back pain. No neck pain. Integumentary: No wounds, no lesions. No rash or pruritus. No unusual bruising. No change in hair or nails. Neurologic: No aphasia. No facial droop. No change in mentation. No head injury. No headache. No paralysis. No paresthesia. Psychiatric: No depression. No anxiety. No mood swings. Endocrine: No abnormal blood sugars. No weight change. 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 SOCIAL HISTORY: Patient used to smoke about a pack every day since the age of 18 and quit about 2 months ago, he denies any alcohol ingestion, no drug use or abuse. FAMILY HISTORY: Father at age of 67 from CAD and congestive heart failure mother at age of 90 from old age, patient has 3 sisters 1 with rheumatoid arthritis and CAD, and the other 2 are okay, patient has 3 daughters one of them works as a dye lab technician in the MRI department in [place]. PHYSICAL EXAMINATION: General: 68-year-old male laying down in bed in no distress. HEENT: Head is atraumatic, normocephalic, pupils were equal round reactive to light and recommendation, extraocular muscle movement were intact, sclera nonicteric, conjunctivae were pale, mucous membranes of the mouth are somewhat dry. Neck: Supple, no JVP, normal carotid upstroke bilaterally, no lymphadenopathy. Chest: Decreased breath sounds at the bases, few rhonchi, no expiratory wheezes, no chest wall tenderness, no intercostal retractions. Heart: First heart sound is normal, second heart sound is normal there is systolic ejection murmur 2/6 located in the left sternal border, there is AICD. Abdomen: Soft, nontender, nondistended, positive bowel sounds. Extremities: There is no edema no calf tenderness DP +2 bilaterally. Neurologic examination: Patient is awake alert and oriented x3, cranial nerves II-12 appear grossly intact, muscle power were 5 out of 5 in upper extremities and 5 out of 5 in bilateral lower extremities, deep tendon reflexes normal bilaterally. ASSESSMENT AND PLAN: 1. Acute kidney injury due to acute tubular necrosis and vasomotor nephropathy. Start the patient on IV fluid resuscitation in the form of normal saline at 100 cc an hour, monitor the patient input and output and daily weight, ultrasound of the kidneys, nephrology consultation, obtain urinalysis. Monitor the patient symptoms very closely, as the patient has nonischemic cardiomyopathy 2. Elevated troponin likely due to acute kidney injury. Repeated troponin came back to normal continue IV fluid resuscitation, patient is ruled out for acute coronary syndrome. 3. Paroxysmal atrial fibrillation . Patient is back to sinus rhythm. Continue patient on carvedilol 12.5 mg orally twice every day, discontinue Entresto for now. Decrease Eliquis to 5 mg orally twice every day. 4. chronic systolic heart failure due to nonischemic cardiomyopathy. Continue patient on carvedilol 12.5 mg orally twice every day, discontinue diuretics, discontinue Entresto, discontinue spironolactone monitor the patient very closely, check input and output and daily weight. 5. Hypertension and hypertensive cardiovascular disease. Continue patient on Coreg 12.5 mg orally twice every day. Monitor the patient blood pressure very closely. 6. Mixed hyperlipidemia. Continue atorvastatin 20 mg once every day, monitor the patient lipid panel, keep LDL 55-70. 7. 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 8. Enlarged prostate. Monitor for urinary retention. 9. DVT prophylaxis. Continue Eliquis 2.5 mg orally twice every day. 10. GI prophylaxis. Continue patient on Protonix 40 mg once every day. 11. Admit to inpatient. Estimated length of stay 2 midnights. 12. Patient is full code. Past Medical History Past Medical History: Coronary Artery Disease (CAD), COPD, Myocardial Infarction (OR) Additional Past Medical History / Comment(s): CHF Last Myocardial Infarction Date:: unk History of Any Multi-Drug Resistant Organisms: None Reported Past Surgical History: Hernia Repair Additional Past Surgical History / Comment(s): hernia repair Past Anesthesia/Blood Transfusion Reactions: No Reported Reaction Type of Cardiac Device: AICD Device Placement Date:: 2016 Past Psychological History: No Psychological Hx Reported Smoking Status: Current every day smoker Medications and Allergies Home Medications Medication Instructions Recorded Confirmed Type Apixaban [Eliquis] 5 mg PO BID 10/31/22 02/17/24 History Atorvastatin [Lipitor] 20 mg PO HS #30 tab 11/01/22 02/17/24 Rx Baclofen [Lioresal] 10 mg PO BID PRN 03/24/23 02/17/24 History Omeprazole 20 mg PO DAILY 03/24/23 02/17/24 History HYDROcodone/APAP 7.5-325MG [[place] 1 tab PO Q12H PRN 11/24/23 02/17/24 History 7.5-325] Spironolactone 12.5 mg PO DAILY 11/24/23 02/17/24 History Amiodarone [Cordarone] 200 mg PO DAILY #30 tab 11/26/23 02/17/24 Rx Furosemide [Lasix] 40 mg PO DAILY #30 tab 11/26/23 02/17/24 Rx Empagliflozin [Jardiance] 10 mg PO DIRECTED 02/17/24 02/17/24 History Sacubitril/Valsartan [Entresto 24 1 tab PO BID 02/17/24 02/17/24 History mg-26 mg Tablet] carvediloL [Coreg] 12.5 mg PO BID 02/17/24 02/17/24 History Allergies Allergy/AdvReac Type Severity Reaction Status Date / Time No Known Allergies Allergy Verified 02/17/24 15:49 Physical Exam Vitals: Vital Signs Pulse Resp BP Pulse Ox 02/17/24 18:00 50 L 18 122/68 96 02/17/24 17:31 51 L 18 124/78 95 02/17/24 15:32 54 L 18 102/64 96 02/17/24 14:32 54 L 18 89/50 96 02/17/24 13:27 55 L 20 91/50 02/17/24 12:53 54 L 16 92 L Intake and Output 02/17/24 02/17/24 02/17/24 06:59 14:59 22:59 Other: Weight 113.398 kg Results CBC & Chem 7: 02/17/24 13:22 02/17/24 13:22 Labs: Abnormal Lab Results - Last 24 Hours (Table) 02/17/24 02/17/24 02/17/24 Range/Units 13:22 13:22 13:22 RDW 17.0 H (11.5-15.5) % INR 1.2 H (<1.2) Carbon Dioxide 20 L (22-30) mmol/L BUN 89 H (9-20) mg/dL Creatinine 3.20 H (0.66-1.25) mg/dL Glucose 119 H (74-99) mg/dL Plasma Lactic Acid Shawn (0.7-2.0) mmol/L Magnesium 2.4 H (1.6-2.3) mg/dL Troponin I (0.000-0.034) ng/mL Urine Protein (Negative) Urine Glucose (UA) (Negative) 02/17/24 02/17/24 02/17/24 Range/Units 13:22 13:22 13:22 RDW (11.5-15.5) % INR (<1.2) Carbon Dioxide (22-30) mmol/L BUN (9-20) mg/dL Creatinine (0.66-1.25) mg/dL Glucose (74-99) mg/dL Plasma Lactic Acid Shawn 2.2 H* (0.7-2.0) mmol/L Magnesium (1.6-2.3) mg/dL Troponin I 0.036 H* (0.000-0.034) ng/mL Urine Protein Trace H (Negative) Urine Glucose (UA) 1+ H (Negative)
--- NOTE | 2024-02-18 14:47 | P.PN ---
Subjective Progress Note Date: 02/18/24 HISTORY OF PRESENT ILLNESS: This is a 68-year-old male with a previous medical history significant for nonischemic cardiomyopathy status post ICD implantation, paroxysmal atrial fibrillation, hypertension and hypertensive cardiovascular disease, hyperlipidemia, enlarged prostate, history of spondylosis of the cervical spine patient was recently hospitalized at [facility] in November 2023 after he was admitted for what appears to be in atrial fibrillation with rapid ventricular response, and he was discharged home in stable condition, apparently patient presented to the emergency department at [facility] today because of generalized weakness and he was found to be significantly hypotensive, at about the same time he was found to have an acute kidney injury with a BUN of 89 and creatinine 3.3, his baseline creatinine is normal with a GFR of 82, patient appears to be quite dehydrated with some lactic acidosis as well his lactic acid was 2.2, patient was given IV fluid resuscitation, he was admitted to the hospital for evaluation by nephrology, ultrasound of the kidneys was unremarkable with no evidence of hydronephrosis, patient had a chest x-ray that did not show evidence of acute disease process, his EKG shows sinus bradycardia with T wave inversion in the anterolateral leads suggestive of ischemia, he also had a CT scan of the brain did not show evidence of acute abnormalities, patient was admitted to the hospital he was started on IV fluid resuscitation, nephrology consultation will be obtained. 02/17: Patient is laying down in bed in no apparent distress, he denies any chest pain, shortness of breath, he has no abdominal pain, he was seen earlier by ne phrology, his kidney function test is improving, still abnormal, continue IV fluid resuscitation, continue to monitor the patient very closely, follow-up with the patient over the next 24 hours, patient is asking when he can be discharged home, he will likely be discharged home in the next 1 or 2 days REVIEW OF SYSTEMS: Constitutional: No documented fever, no chills, no night sweats. No weight change. No weakness, fatigue or lethargy. No daytime sleepiness. EENT: No headache. No blurred vision or double vision, no loss of vision. No loss of Hearing, no ringing in the ears, no dizziness. No nasal drainage or congestion. No epistaxis. No sore throat. Lungs: positive for shortness of breath, no cough, no sputum production. No wheezing. Reports dyspnea with activity. Cardiovascular: No chest pain, positive for lower extremity edema. positive for palpitations. positive for paroxysmal nocturnal dyspnea. positive for orthopnea. No lightheadedness or dizziness. No syncopal episodes. Abdominal: Reports abdominal pain. No nausea, vomiting. No diarrhea. No constipation. No bloody or tarry stools reports loss of appetite. Genitourinary: No dysuria, increased frequency, urgency. No urinary retention. Musculoskeletal: No myalgias. positive for muscle weakness, no gait dysfunction, no frequent falls. No back pain. No neck pain. Integumentary: No wounds, no lesions. No rash or pruritus. No unusual bruising. No change in hair or nails. Neurologic: No aphasia. No facial droop. No change in mentation. No head injury. No headache. No paralysis. No paresthesia. Psychiatric: No depression. No anxiety. No mood swings. Endocrine: No abnormal blood sugars. No weight change. PHYSICAL EXAMINATION: General: 68-year-old male laying down in bed in no distress. HEENT: Head is atraumatic, normocephalic, pupils were equal round reactive to light and recommendation, extraocular muscle movement were intact, sclera nonicteric, conjunctivae were pale, mucous membranes of the mouth are somewhat dry. Neck: Supple, no JVP, normal carotid upstroke bilaterally, no lymphadenopathy. Chest: Decreased breath sounds at the bases, few rhonchi, no expiratory wheezes, no chest wall tenderness, no intercostal retractions. Heart: First heart sound is normal, second heart sound is normal there is systolic ejection murmur 2/6 located in the left sternal border, there is AICD. Abdomen: Soft, nontender, nondistended, positive bowel sounds. Extremities: There is no edema no calf tenderness DP +2 bilaterally. Neurologic examination: Patient is awake alert and oriented x3, cranial nerves II-12 appear grossly intact, muscle power were 5 out of 5 in upper extremities and 5 out of 5 in bilateral lower extremities, deep tendon reflexes normal bilaterally. ASSESSMENT AND PLAN: 1. Acute kidney injury due to acute tubular necrosis and vasomotor nephropathy. Continue on IV fluid resuscitation in the form of normal saline at 100 cc an hour, monitor the patient input and output and daily weight, ultrasound of the kidneys, nephrology consultation, obtain urinalysis. Monitor the patient symptoms very closely, as the patient has nonischemic cardiomyopathy 2. Elevated troponin likely due to acute kidney injury. Repeated troponin came back to normal continue IV fluid resuscitation, patient is ruled out for acute coronary syndrome. 3. Paroxysmal atrial fibrillation . Patient is back to sinus rhythm. Continue patient on carvedilol 12.5 mg orally twice every day, discontinue Entresto for now. Decrease Eliquis to 5 mg orally twice every day. 4. chronic systolic heart failure due to nonischemic cardiomyopathy. Continue patient on carvedilol 12.5 mg orally twice every day, discontinue diuretics, discontinue Entresto, discontinue spironolactone monitor the patient very closely, check input and output and daily weight. 5. Hypertension and hypertensive cardiovascular disease. Continue patient on Coreg 12.5 mg orally twice every day. Monitor the patient blood pressure very closely. 6. Mixed hyperlipidemia. Continue atorvastatin 20 mg once every day, monitor the patient lipid panel, keep LDL 55-70. 7. Spondylosis of the cervical spine with myelopathy and radiculopathy continue baclofen 10 mg orally twice every day as needed, monitor the patient symptoms very closely patient was supposed to follow-up with spine surgery as an outp atient. 8. Enlarged prostate. Monitor for urinary retention. 9. DVT prophylaxis. Continue Eliquis 2.5 mg orally twice every day. 10. GI prophylaxis. Continue patient on Protonix 40 mg once every day. 11. We will continue to monitor the patient very closely. Objective - Vital Signs Vital signs: Vital Signs Temp 98.6 F 02/18/24 11:34 Pulse 90 02/18/24 13:36 Resp 18 02/18/24 13:36 BP 124/75 02/18/24 13:36 Pulse Ox 98 02/18/24 13:36 FiO2 Intake & Output 02/17/24 02/18/24 02/18/24 18:59 06:59 18:59 Output Total 1800 Balance -1800 Weight 113.398 kg Output: Urine 1800 - Labs CBC & Chem 7: 02/18/24 05:49 02/18/24 05:49 Labs: Abnormal Lab Results - Last 24 Hours (Table) 02/17/24 02/17/24 02/17/24 Range/Units 13:22 13:22 13:22 MCHC (31.0-37.0) g/dL RDW (11.5-15.5) % Chloride (98-107) mmol/L Carbon Dioxide 20 L (22-30) mmol/L BUN 89 H (9-20) mg/dL Creatinine 3.20 H (0.66-1.25) mg/dL Glucose 119 H (74-99) mg/dL Plasma Lactic Acid Shawn 2.2 H* (0.7-2.0) mmol/L Magnesium 2.4 H (1.6-2.3) mg/dL Troponin I 0.036 H* (0.000-0.034) ng/mL Urine Protein (Negative) Urine Glucose (UA) (Negative) 02/17/24 02/18/24 02/18/24 Range/Units 13:22 05:49 05:49 MCHC 30.7 L (31.0-37.0) g/dL RDW 17.0 H (11.5-15.5) % Chloride 110 H (98-107) mmol/L Carbon Dioxide 21 L (22-30) mmol/L BUN 75 H (9-20) mg/dL Creatinine 2.18 H (0.66-1.25) mg/dL Glucose (74-99) mg/dL Plasma Lactic Acid Shawn (0.7-2.0) mmol/L Magnesium (1.6-2.3) mg/dL Troponin I (0.000-0.034) ng/mL Urine Protein Trace H (Negative) Urine Glucose (UA) 1+ H (Negative)
[2024-02-19 08:09] LABS: Anisocytosis Slight; Basophils % (A) 0 %; Eosinophils # (A) 0.3 k/uL (0-0.7); Eosinophils % (A) 4 %; HCT 49.2 % (39.0-53.0); HGB 15.5 gm/dL (13.0-17.5); Lymphocytes # (A) 1.3 k/uL (1.0-4.8); Lymphocytes % (A) 17 %; MCH 27.7 pg (25.0-35.0); MCHC 31.5 g/dL (31.0-37.0); Mean Platelet Volume 8.1; Monocytes # (A) 0.7 k/uL (0-1.0); Monocytes % (A) 9 %; Neutrophils # (A) 5.1 k/uL (1.3-7.7); Neutrophils % (A) 68 %; Platelet Count 187 k/uL (150-450); RBC 5.59 m/uL (4.30-5.90); RDW 17.1 % (11.5-15.5); WBC 7.5 k/uL (3.8-10.6)
[2024-02-19 08:22] LABS: ALT 24 U/L (4-49); AST 26 U/L (17-59); African American GFR (CKD) 60 (>60 ml/min/1.73 sqM); Albumin 3.9 g/dL (3.5-5.0); Alkaline Phosphatase 59 U/L (38-126); Anion Gap 8 mmol/L; Blood Urea Nitrogen 45 mg/dL (9-20); Calcium 9.5 mg/dL (8.4-10.2); Carbon Dioxide 18 mmol/L (22-30); Chloride 114 mmol/L (98-107); Glucose 97 mg/dL (74-99); Non-African American GFR(CKD) 51 (>60 ml/min/1.73 sqM); Potassium 4.6 mmol/L (3.5-5.1); Sodium 140 mmol/L (137-145); Total Bilirubin 0.7 mg/dL (0.2-1.3); Total Protein 6.5 g/dL (6.3-8.2)
--- NOTE | 2024-02-19 11:57 | P.PN ---
Subjective Patient is seen in follow-up for acute kidney injury. Renal function improving with IV fluids. Oral intake is good. No vomiting or diarrhea. No chest pain or shortness of breath. Vital signs are stable. General: No acute distress. HEENT: Head exam is unremarkable. LUNGS: No audible rhonchi or wheezes. HEART: Rate and Rhythm are regular. ABDOMEN: Nontender. EXTREMITITES: No edema. Objective - Vital Signs Vital signs: Vital Signs Temp 97.9 F 02/19/24 08:51 Pulse 71 02/19/24 08:51 Resp 18 02/19/24 08:51 BP 147/83 02/19/24 08:51 Pulse Ox 94 L 02/19/24 08:51 FiO2 Intake & Output 02/18/24 02/19/24 02/19/24 18:59 06:59 18:59 Intake Total 600 Output Total 1800 Balance -1800 600 Weight 118.5 kg 117.1 kg Intake: IV 600 0.9 600 Output: Urine 1800 Other: Voiding Method Toilet Toilet # Voids 3 - Labs CBC & Chem 7: 02/19/24 07:06 02/19/24 07:06 Labs: Abnormal Lab Results - Last 24 Hours (Table) 02/19/24 02/19/24 Range/Units 07:06 07:06 RDW 17.1 H (11.5-15.5) % Chloride 114 H (98-107) mmol/L Carbon Dioxide 18 L (22-30) mmol/L BUN 45 H (9-20) mg/dL Creatinine 1.40 H (0.66-1.25) mg/dL Assessment and Plan Plan: Assessment: 1. Acute kidney injury secondary to ATN secondary to hypotension further worsen with the use of antihypertensives, diuretics and SGLT2 inhibitor. Creatinine 3.2 on admission and is 1.4 today. Creatinine in November 2023 was near 1.1. UA fairly benign. No hydronephrosis noted on kidney ultrasound. 2. Chronic systolic CHF ejection fraction of 20 to 25% with moderate to severe mitral regurgitation. 3. Metabolic acidosis secondary to acute kidney injury and lactic acidosis. Worsened with IV fluids. Plan: Hep-Lock IV fluids. Resume SGLT2 inhibitor. Avoid nephrotoxins. Continue to monitor renal function and urine output.
[2024-02-19] MEDS: DAPAGLIFLOZIN PROPANEDIOL 5 MG TABLET PO SCH (15:44)
--- NOTE | 2024-02-19 18:29 | P.PN ---
Subjective Progress Note Date: 02/19/24 HISTORY OF PRESENT ILLNESS: This is a 68-year-old male with a previous medical history significant for nonischemic cardiomyopathy status post ICD implantation, paroxysmal atrial fibrillation, hypertension and hypertensive cardiovascular disease, hyperlipidemia, enlarged prostate, history of spondylosis of the cervical spine patient was recently hospitalized at [facility] in November 2023 after he was admitted for what appears to be in atrial fibrillation with rapid ventricular response, and he was discharged home in stable condition, apparently patient presented to the emergency department at [facility] today because of generalized weakness and he was found to be significantly hypotensive, at about the same time he was found to have an acute kidney injury with a BUN of 89 and creatinine 3.3, his baseline creatinine is normal with a GFR of 82, patient appears to be quite dehydrated with some lactic acidosis as well his lactic acid was 2.2, patient was given IV fluid resuscitation, he was admitted to the hospital for evaluation by nephrology, ultrasound of the kidneys was unremarkable with no evidence of hydronephrosis, patient had a chest x-ray that did not show evidence of acute disease process, his EKG shows sinus bradycardia with T wave inversion in the anterolateral leads suggestive of ischemia, he also had a CT scan of the brain did not show evidence of acute abnormalities, patient was admitted to the hospital he was started on IV fluid resuscitation, nephrology consultation will be obtained. 02/17: Patient is laying down in bed in no apparent distress, he denies any chest pain, shortness of breath, he has no abdominal pain, he was seen earlier by ne phrology, his kidney function test is improving, still abnormal, continue IV fluid resuscitation, continue to monitor the patient very closely, follow-up with the patient over the next 24 hours, patient is asking when he can be discharged home, he will likely be discharged home in the next 1 or 2 days 02/18: Patient is laying down in bed in no apparent distress, he denies any chest pain, shortness of breath, he was taken off IV fluid resuscitation, encourage oral intake of fluid, he was started back on his SGL 2 Farxiga 5 mg orally once every day, we will monitor the patient kidney function test over the next 24 hours, if his kidney function is stable Patient can be discharged and follow-up with us as an outpatient. REVIEW OF SYSTEMS: Constitutional: No documented fever, no chills, no night sweats. No weight change. No weakness, fatigue or lethargy. No daytime sleepiness. EENT: No headache. No blurred vision or double vision, no loss of vision. No loss of Hearing, no ringing in the ears, no dizziness. No nasal drainage or congestion. No epistaxis. No sore throat. Lungs: positive for shortness of breath, no cough, no sputum production. No wheezing. Reports dyspnea with activity. Cardiovascular: No chest pain, positive for lower extremity edema. positive for palpitations. positive for paroxysmal nocturnal dyspnea. positive for orthopnea. No lightheadedness or dizziness. No syncopal episodes. Abdominal: Reports abdominal pain. No nausea, vomiting. No diarrhea. No constipation. No bloody or tarry stools reports loss of appetite. Genitourinary: No dysuria, increased frequency, urgency. No urinary retention. Musculoskeletal: No myalgias. positive for muscle weakness, no gait dysfunction, no frequent falls. No back pain. No neck pain. Integumentary: No wounds, no lesions. No rash or pruritus. No unusual bruising. No change in hair or nails. Neurologic: No aphasia. No facial droop. No change in mentation. No head injury. No headache. No paralysis. No paresthesia. Psychiatric: No depression. No anxiety. No mood swings. Endocrine: No abnormal blood sugars. No weight change. PHYSICAL EXAMINATION: General: 68-year-old male laying down in bed in no distress. HEENT: Head is atraumatic, normocephalic, pupils were equal round reactive to light and recommendation, extraocular muscle movement were intact, sclera nonicteric, conjunctivae were pale, mucous membranes of the mouth are somewhat dry. Neck: Supple, no JVP, normal carotid upstroke bilaterally, no lymphadenopathy. Chest: Decreased breath sounds at the bases, few rhonchi, no expiratory wheezes, no chest wall tenderness, no intercostal retractions. Heart: First heart sound is normal, second heart sound is normal there is systolic ejection murmur 2/6 located in the left sternal border, there is AICD. Abdomen: Soft, nontender, nondistended, positive bowel sounds. Extremities: There is no edema no calf tenderness DP +2 bilaterally. Neurologic examination: Patient is awake alert and oriented x3, cranial nerves II-12 appear grossly intact, muscle power were 5 out of 5 in upper extremities and 5 out of 5 in bilateral lower extremities, deep tendon reflexes normal bilaterally. ASSESSMENT AND PLAN: 1. Acute kidney injury due to acute tubular necrosis and vasomotor nephropathy. Better today, restarted the patient back on Farxiga 5 mg orally once every day, I will monitor the patient kidney function test over the next 24 hours, encourage oral intake of fluid, discontinue IV fluid at this time. 2. Elevated troponin likely due to acute kidney injury. Repeated troponin came back to normal. 3. Paroxysmal atrial fibrillation . Patient is back to sinus rhythm. Continue patient on carvedilol 12.5 mg orally twice every day, continue patient on amioda tobias 200 mg orally once every day and restart the patient back on Farxiga 5 mg orally once every day. 4. chronic systolic heart failure due to nonischemic cardiomyopathy. Continue patient on carvedilol 12.5 mg orally twice every day, discontinue diuretics, restart the patient back on Farxiga 5 mg orally once every day, hold off Entresto and spironolactone. 5. Hypertension and hypertensive cardiovascular disease. Continue patient on Coreg 12.5 mg orally twice every day. Monitor the patient blood pressure very closely. 6. Mixed hyperlipidemia. Continue atorvastatin 20 mg once every day, monitor the patient lipid panel, keep LDL 55-70. 7. 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 8. Enlarged prostate. Monitor for urinary retention. 9. DVT prophylaxis. Continue Eliquis 5 mg orally twice every day. 10. GI prophylaxis. Continue patient on Protonix 40 mg once every day. 11. We will continue to monitor the patient very closely. 12. Home tomorrow morning. Objective - Vital Signs Vital signs: Vital Signs Temp 97.9 F 02/19/24 08:51 Pulse 74 02/19/24 11:58 Resp 16 02/19/24 11:58 BP 134/88 02/19/24 11:58 Pulse Ox 96 02/19/24 11:58 FiO2 Intake & Output 02/18/24 02/19/24 02/19/24 18:59 06:59 18:59 Intake Total 600 Output Total 1800 Balance -1800 600 Weight 118.5 kg 117.1 kg Intake: IV 600 0.9 600 Output: Urine 1800 Other: Voiding Method Toilet Toilet # Voids 3 - Labs CBC & Chem 7: 02/19/24 07:06 02/19/24 07:06 Labs: Abnormal Lab Results - Last 24 Hours (Table) 02/19/24 02/19/24 Range/Units 07:06 07:06 RDW 17.1 H (11.5-15.5) % Chloride 114 H (98-107) mmol/L Carbon Dioxide 18 L (22-30) mmol/L BUN 45 H (9-20) mg/dL Creatinine 1.40 H (0.66-1.25) mg/dL
[2024-02-19] MEDS: BACLOFEN 10 MG TAB PO PRN (20:09)
[2024-02-20 03:52] VITALS: RESP 16; TEMP 98.5
[2024-02-20 08:35] LABS: Anisocytosis Slight; Basophils % (A) 1 %; Eosinophils # (A) 0.2 k/uL (0-0.7); Eosinophils % (A) 3 %; HCT 50.7 % (39.0-53.0); HGB 15.6 gm/dL (13.0-17.5); Hypochromasia Slight; Lymphocytes # (A) 1.2 k/uL (1.0-4.8); Lymphocytes % (A) 16 %; MCH 27.4 pg (25.0-35.0); MCHC 30.9 g/dL (31.0-37.0); MCV 88.8 fL (80.0-100.0); Mean Platelet Volume 7.3; Monocytes # (A) 0.5 k/uL (0-1.0); Monocytes % (A) 7 %; Neutrophils # (A) 5.2 k/uL (1.3-7.7); Neutrophils % (A) 71 %; Platelet Count 209 k/uL (150-450); RDW 16.9 % (11.5-15.5); WBC 7.4 k/uL (3.8-10.6)
[2024-02-20 08:51] LABS: ALT 27 U/L (4-49); AST 25 U/L (17-59); African American GFR (CKD) 70 (>60 ml/min/1.73 sqM); Albumin 3.8 g/dL (3.5-5.0); Alkaline Phosphatase 62 U/L (38-126); Anion Gap 6 mmol/L; Blood Urea Nitrogen 35 mg/dL (9-20); Calcium 9.4 mg/dL (8.4-10.2); Carbon Dioxide 21 mmol/L (22-30); Chloride 111 mmol/L (98-107); Glucose 93 mg/dL (74-99); Magnesium 1.9 mg/dL (1.6-2.3); Non-African American GFR(CKD) 60 (>60 ml/min/1.73 sqM); Potassium 4.4 mmol/L (3.5-5.1); Sodium 138 mmol/L (137-145); Total Bilirubin 0.8 mg/dL (0.2-1.3); Total Protein 6.5 g/dL (6.3-8.2)
[2024-02-20] MEDS: AMIODARONE 200 MG TAB PO SCH (10:00)
[2024-02-20] MEDS: HYDROcodone/APAP 7.5-325MG 1 EACH TAB PO PRN (10:02)
--- NOTE | 2024-02-20 11:12 | P.PN ---
Subjective Patient is seen in follow-up for acute kidney injury. Renal function improved with IV fluids. Oral intake is good. No vomiting or diarrhea. No chest pain or shortness of breath. Vital signs are stable. General: No acute distress. HEENT: Head exam is unremarkable. LUNGS: No audible rhonchi or wheezes. HEART: Rate and Rhythm are regular. ABDOMEN: Nontender. EXTREMITITES: No edema. Objective - Vital Signs Vital signs: Vital Signs Temp 98.5 F 02/20/24 03:52 Pulse 66 02/20/24 10:00 Resp 16 02/20/24 10:00 BP 142/84 02/20/24 10:00 Pulse Ox 93 L 02/20/24 10:00 FiO2 Intake & Output 02/19/24 02/20/24 02/20/24 18:59 06:59 18:59 Intake Total 128 20 10 Balance 128 20 10 Weight 117.8 kg Intake: IV 10 20 10 Invasive Line 1 10 20 10 Oral 118 Other: Voiding Method Toilet Toilet # Voids 1 - Labs CBC & Chem 7: 02/20/24 07:56 02/20/24 07:56 Labs: Abnormal Lab Results - Last 24 Hours (Table) 02/20/24 02/20/24 Range/Units 07:56 07:56 MCHC 30.9 L (31.0-37.0) g/dL RDW 16.9 H (11.5-15.5) % Chloride 111 H (98-107) mmol/L Carbon Dioxide 21 L (22-30) mmol/L BUN 35 H (9-20) mg/dL Assessment and Plan Plan: Assessment: 1. Acute kidney injury secondary to ATN secondary to hypotension further worsen with the use of antihypertensives, diuretics and SGLT2 inhibitor. Creatinine 3.2 on admission and is 1.23 today. Creatinine in November 2023 was near 1.1. UA fairly benign. No hydronephrosis noted on kidney ultrasound. 2. Chronic systolic CHF ejection fraction of 20 to 25% with moderate to severe mitral regurgitation. 3. Metabolic acidosis secondary to acute kidney injury and lactic acidosis. Worsened with IV fluids. improved today. Plan: off IV fluids. maintain SGLT2 inhibitor. Avoid nephrotoxins. Continue to monitor renal function and urine output. okay to resume contrast to from nephrology standpoint. Repeat BMP and magnesium level 2-3 days post discharge. Follow up outpatient in 1 week.
[2024-02-20 12:06] VITALS: BP 147/99; PULSE 82
== END 2024-02-20 13:52 | disposition home or self-care (01) | DRG 683 ==
LOC: EC 12:51 → 3SCARD 15:38
PROVIDERS: ADMIT Internal Medicine; ATTEND Internal Medicine
DX: N17.0 Acute kidney failure with tubular necrosis (principal); E87.20 Acidosis, unspecified; I42.8 Other cardiomyopathies; I50.22 Chronic systolic (congestive) heart failure; M47.12 Other spondylosis with myelopathy, cervical region; I95.9 Hypotension, unspecified; I11.0 Hypertensive heart disease with heart failure; I25.10 Atherosclerotic heart disease of native coronary artery without angina pectoris; M47.22 Other spondylosis with radiculopathy, cervical region; I48.0 Paroxysmal atrial fibrillation; R00.1 Bradycardia, unspecified; J44.9 Chronic obstructive pulmonary disease, unspecified; N40.0 Benign prostatic hyperplasia without lower urinary tract symptoms; Z79.01 Long term (current) use of anticoagulants; E78.2 Mixed hyperlipidemia; I25.2 Old myocardial infarction; W19.XXXA Unspecified fall, initial encounter; I34.0 Nonrheumatic mitral (valve) insufficiency; Y92.239 Unspecified place in hospital as the place of occurrence of the external cause; Z79.84 Long term (current) use of oral hypoglycemic drugs; Z79.899 Other long term (current) drug therapy; Z82.49 Family history of ischemic heart disease and other diseases of the circulatory system; Z95.810 Presence of automatic (implantable) cardiac defibrillator; Z87.19 Personal history of other diseases of the digestive system
CPT/HCPCS: 36415; 70450; 71046; 76770; 80053; 81003; 83605; 83735; 84100; 84484; 85025; 85610; 85730; 93005; 96360; 96361; 99291

== ENCOUNTER 2024-05-06 09:31 | Day surgery (SDC) | payer MEDICARE, OTHER ==
[2024-05-06] MEDS: IV FLUID CONTINUATION 1,000 ML IV ONE (10:05)
[2024-05-06] MEDS: SODIUM CHLORIDE 0.9% 1,000 ML IV SCH (10:05)
[2024-05-06 10:18] LABS: Basophils % (A) 1 %; Eosinophils # (A) 0.3 k/uL (0-0.7); Eosinophils % (A) 4 %; HCT 45.8 % (39.0-53.0); HGB 14.2 gm/dL (13.0-17.5); Lymphocytes # (A) 1.4 k/uL (1.0-4.8); Lymphocytes % (A) 17 %; MCH 28.4 pg (25.0-35.0); MCHC 31.1 g/dL (31.0-37.0); MCV 91.3 fL (80.0-100.0); Mean Platelet Volume 7.2; Monocytes # (A) 0.5 k/uL (0-1.0); Monocytes % (A) 6 %; Neutrophils # (A) 5.7 k/uL (1.3-7.7); Neutrophils % (A) 70 %; Platelet Count 239 k/uL (150-450); RBC 5.02 m/uL (4.30-5.90); RDW 14.8 % (11.5-15.5)
[2024-05-06 10:34] LABS: ALT 41 U/L (4-49); AST 27 U/L (17-59); African American GFR (CKD) 59 (>60 ml/min/1.73 sqM); Albumin 4.2 g/dL (3.5-5.0); Alkaline Phosphatase 116 U/L (38-126); Anion Gap 7 mmol/L; Blood Urea Nitrogen 35 mg/dL (9-20); Calcium 9.4 mg/dL (8.4-10.2); Carbon Dioxide 24 mmol/L (22-30); Chloride 106 mmol/L (98-107); Glucose 112 mg/dL (74-99); Non-African American GFR(CKD) 51 (>60 ml/min/1.73 sqM); Potassium 4.7 mmol/L (3.5-5.1); Sodium 137 mmol/L (137-145); Total Bilirubin 0.9 mg/dL (0.2-1.3); Total Protein 6.9 g/dL (6.3-8.2)
[2024-05-06] MEDS ORDERED: LIDOCAINE 1% INJ 10MG/ML (20 ML MDV) ONE (12:00)
[2024-05-06] MEDS ORDERED: HEPARIN SODIUM,PORCINE 10,000 UNIT/ML 1 ML VIAL ONE (12:00)
[2024-05-06] MEDS ORDERED: fentaNYL (PF) 50 MCG/ML 2 ML AMP ONE (12:00)
[2024-05-06] MEDS ORDERED: SUCCINYLCHOLINE CHLORIDE 200 MG/10 ML VIAL IV ONE (12:00)
[2024-05-06] MEDS ORDERED: PROPOFOL 10 MG/ML 20 ML VIAL IV ONE (12:00)
[2024-05-06] MEDS ORDERED: HEPARIN SODIUM,PORCINE 5,000 UNIT/ML 1 ML VIAL ONE (12:00)
[2024-05-06] MEDS ORDERED: PHENYLEPHRINE-0.9% NACL SYG 1,000 MCG/10 ML SYRINGE ONE (12:00)
[2024-05-06] MEDS: HEPARIN SOD,PORK IN 0.45% NACL 25,000 UNIT in 0.45% NACL 1 250ML.BAG IV ONE (12:34)
[2024-05-06] MEDS: LIDOCAINE 1% INJ 10MG/ML (20 ML MDV) SQ ONE (12:40)
[2024-05-06] MEDS: HEPARIN SODIUM,PORCINE (1 ML) 2,500 UNIT in SODIUM CHLORIDE 0.9% 250 ML IRRIGATION ONE (14:37)
[2024-05-06] MEDS: HEPARIN SODIUM,PORCINE 10,000 UNIT in SODIUM CHLORIDE 0.9% 1,000 ML IRRIGATION ONE (14:37)
--- NOTE | 2024-05-06 15:12 | P.HPCAR ---
History of Present Illness This is Dr. Armstrong dictating an H/P on this patient The patient was interviewed and examined IMPRESSION / ASSESSMENT: Symptomatic paroxysmal atrial fibrillation with RVR, inappropriate ICD shock Nonischemic cardiomyopathy Class II CHF Current smoker PLAN: A-fib ablation Continue Eliquis Continue low-dose amiodarone for 6 weeks, then stop HPI Patient has had recurrent episodes of paroxysmal atrial fibrillation with RVR with inappropriate ICD shock He has a history of cardiomyopathy with a single-chamber Medtronic ICD that was implanted at [facility] in 2017 He is on a very low-dose of oral amiodarone He underwent electrical cardioversion for A-fib with RVR Class II CHF Current smoker Nonischemic cardiomyopathy ROS: No fever chills or rigors, no cough, phlegm or expectoration, no nausea, vomiting or diarrhea, no hematuria, dysuria, no musculoskeletal complaints, no strokes or seizures, no skin lesions. EXAMINATION: Afebrile 97.9 F pulse rate in the 60s, blood pressure 137/95 mmHg Heart sounds S1-S2 normal and regular No JVD Clear lungs no rhonchi no crackles Extremities warm no edema Soft abdomen nontender REVIEW OF LABS, ECG & MEDICAL DATA Normal white count, normal hemoglobin of 14.2 Platelet count 239,000 normal Creatinine 1.42 BUN 35 Electrolytes normal TSH 1.6 Medications carvedilol spironolactone Lasix amiodarone atorvastatin and Eliquis 5 mg twice daily Physical Exam Vitals: Vital Signs Temp Pulse Resp BP Pulse Ox 05/06/24 10:00 97.9 F 65 20 137/95 96 Intake and Output 05/06/24 05/06/24 05/06/24 06:59 14:59 22:59 Intake Total 436.8 Balance 436.8 Intake: IV 436.8 Other: Weight 119.3 kg Past Medical History Past Medical History: Atrial Fibrillation, Coronary Artery Disease (CAD), Heart Failure, COPD, GERD/Reflux, Myocardial Infarction ([place]), Osteoarthritis (OA), Renal Disease Additional Past Medical History / Comment(s): decreased kidney function, see Dr Armstrong H & P Last Myocardial Infarction Date:: unk History of Any Multi-Drug Resistant Organisms: None Reported Past Surgical History: Adenoidectomy, AICD, Hernia Repair, Tonsillectomy Additional Past Surgical History / Comment(s): hernia repair Past Anesthesia/Blood Transfusion Reactions: No Reported Reaction Type of Cardiac Device: AICD Device Placement Date:: 2016 Smoking Status: Current some day smoker - Past Family History Father Family Medical History: Congestive Heart Failure (CHF) Physical Examination Vital Signs Temp Pulse Resp BP Pulse Ox 05/06/24 10:00 97.9 F 65 20 137/95 96 Intake and Output 05/06/24 05/06/24 05/06/24 06:59 14:59 22:59 Intake Total 436.8 Balance 436.8 Intake: IV 436.8 Other: Weight 119.3 kg Results 05/06/24 10:05 05/06/24 10:05 Cardiac Enzymes 05/06/24 Range/Units 10:05 AST 27 (17-59) U/L CBC 05/06/24 Range/Units 10:05 WBC 8.0 (3.8-10.6) k/uL RBC 5.02 (4.30-5.90) m/uL Hgb 14.2 (13.0-17.5) gm/dL Hct 45.8 (39.0-53.0) % Plt Count 239 (150-450) k/uL Comprehensive Metabolic Panel 05/06/24 Range/Units 10:05 Sodium 137 (137-145) mmol/L Potassium 4.7 (3.5-5.1) mmol/L Chloride 106 (98-107) mmol/L Carbon Dioxide 24 (22-30) mmol/L BUN 35 H (9-20) mg/dL Creatinine 1.42 H (0.66-1.25) mg/dL Glucose 112 H (74-99) mg/dL Calcium 9.4 (8.4-10.2) mg/dL AST 27 (17-59) U/L ALT 41 (4-49) U/L Alkaline Phosphatase 116 (38-126) U/L Total Protein 6.9 (6.3-8.2) g/dL Albumin 4.2 (3.5-5.0) g/dL Current Medications Generic Name Dose Route Start Last Admin Trade Name Freq PRN Reason Stop Dose Admin Sodium Chloride 1,000 mls @ 20 mls/hr 05/06/24 05:56 05/06/24 10:05 Saline 0.9% IV 06/05/24 05:55 20 mls/hr .Q24H YVES Administration Intake and Output 05/06/24 05/06/24 05/06/24 06:59 14:59 22:59 Intake Total 436.8 Balance 436.8 Intake: IV 436.8 Other: Weight 119.3 kg Patient Weight 05/07/24 06:59 Weight 119.3 kg 05/06/24 10:05 05/06/24 10:05
[2024-05-06] MEDS ORDERED: BACLOFEN 10 MG TAB PO PRN (15:15)
[2024-05-06] MEDS ORDERED: ACETAMINOPHEN TAB 325 MG TAB PO PRN (15:18)
[2024-05-06] MEDS: hydrALAZINE HCL 20 MG/ML 1 ML VIAL IVP PRN (15:45)
--- NOTE | 2024-05-06 15:45 | P.EPPROC ---
- EP Procedure Note Electrophysiology Procedure Note: PROCEDURE A. fib ablation, PVI and left atrial septal ablation DIAGNOSIS Successful atrial fibrillation, symptomatic, refractory to therapy, RVR, inappropriate ICD shock RESULT Successful A. fib ablation/pulmonary vein isolation of all veins using cryo- ablation Complete entrance block in all 4 veins confirmed No evidence for phrenic nerve injury Left atrial septal ablation Esophageal deflection YES PROCEDURE DETAILS Written informed consent prior to procedure. Patient brought to the EP lab. ICD interrogated, single-chamber Medtronic. Thresholds and impedances stable. Detections and therapies turned off in the VT and VF zone At the end of the procedure reinterrogated. Lead impedances stable thresholds stable sensing normal Reprogramming of tachyarrhythmia detections and therapies general anesthesia given. Heparin administered. A city maintained above 300 se conds Both groins prepped and draped per protocol and venous sheaths placed. Esophagus intubated, circa catheter for temperature monitoring an endoscope for possible esophageal deflection. Phrenic nerve monitoring performed. Esophageal temperature monitoring performed. Esophageal deflection performed if circa catheter overlapping with the balloon or circa temperature less than 27.5C Intracardiac echocardiography performed. Pericardium evaluated. Left atrial appendage evaluated. Left atrium evaluated along with pulmonary veins Transseptal catheterization performed under fluoroscopic guidance and intracardiac echo guidance Cryoablation sheath exchanged, balloon catheter along with achieve catheter placed in the left atrium. Pulmonary veins isolated in the following sequence: Left superior pulmonary vein followed by left inferior pulmonary vein, followed by right inferior pulmonary vein and lastly right superior pulmonary vein. Phrenic nerve stimulation along with capture thresholds within the SVC and right superior pulmonary vein to identify the phrenic nerve proximity to the cryo- balloon. Pulmonary veins isolated and confirmed with entrance and exit block. Phrenic nerve integrity confirmed at the end of the procedure Ablation of the left atrial septum performed with cannulation of the superior branch of the right inferior or the inferior branch of the right superior vein to achieve ablation of the posterior septum of the left atrium. Ablation of electrograms confirmed Diagnostic catheters for the high right atrium, His bundle, coronary sinus placed. LA and RA pressures recorded RA pressure: 107/9 LA pressure: 14/2/8 Diagnostic EP study with coronary sinus pacing and recording sinus cycle length 1087, LA interval 153 ms, QRS 142 and QT interval 483 ms Baseline measurements: Sinus node recovery times were 1087, 1132 and 886. Sinus node entrance block noted AV node Wenckebach block abnormal at 560 ms AH interval 86 ms and HV interval 39 ms Venous sheaths were removed and hemostasis assured with a closure device. Patient extubated and transferred to recovery Increase procedural time During ablation multiple attempts had to be made to move the esophagus a safe distance of the from the pulmonary vein draining cryoablation, to avoid excessive thermal cooling of the esophagus This took extra time and effort to keep the esophagus a safe distance away from the cryoablation balloon. Very posteriorly located takeoff of the right inferior pulmonary vein ostium. Multiple attempts made to cannulate the vein. Finally successful cannulation and occlusion followed by excellent cryoablation lesion. 2 lesions delivered PROCEDURES PERFORMED Diagnostic EP study CS pacing and recording Left and right transseptal catheterization Catheter the mapping of the tachycardia Intracardiac echocardiography Pulmonary vein isolation with transseptal and comprehensive EPS, [id number] Extended procedure duration Left atrial roof line, +[id number] Linear ablation, left atrium, +[id number]
[2024-05-06] MEDS: ACETAMINOPHEN IV (For NPO) 1,000 MG in EMPTY BAG 1 BAG IVPB ONE (16:12)
[2024-05-06] MEDS: VALSARTAN 160 MG TAB PO STA (16:50)
[2024-05-06] MEDS: COLCHICINE 0.6 MG EACH PO STA (16:51)
[2024-05-06] MEDS: SYMBICORT 80-4.5 MCG INHALER INHALATION SCH (19:44)
[2024-05-06] MEDS: carvediloL 12.5 MG TAB PO SCH (20:28)
[2024-05-06] MEDS: ATORVASTATIN 20 MG TAB PO SCH (20:28)
[2024-05-06] MEDS: APIXABAN 5 MG TAB PO SCH (20:28)
[2024-05-07] MEDS: HYDROcodone/APAP 7.5-325MG 1 EACH TAB PO PRN (06:45)
[2024-05-07 07:31] VITALS: BP 126/65; PULSE 75; RESP 16; TEMP 98
--- NOTE | 2024-05-07 08:09 | P.DS ---
Providers Attending physician: Jose Armstrong Primary care physician: Angel Luis Campos [place] [facility] Course: Patient is doing well. No chest discomfort dizziness lightheadedness or palpitations No inspiratory pain no sore throat Lying comfortably in bed Groins have healed well no pain Telemetry shows sinus mechanism On examination, afebrile 98.6, pulse rate in the 60s Blood pressure 130/80, 143/84 mmHg No JVD No swelling in the groins Normal heart sounds no murmurs no rub Normal white count 8.0, hematocrit 45.8, platelet count 239,000 Sodium 137, potassium 4.7 Creatinine 1.4, BUN 35 TSH 1.6 Normal AST and ALT Impression Paroxysmal atrial fibrillation with RVR, inappropriate ICD therapies Status post PVI and left atrial septal ablation yesterday. Maintain sinus rhythm Known nonischemic cardiomyopathy Status post single-chamber ICD in the past Plan Continue anticoagulation Maximize antihypertensive and heart failure therapies Colchicine 0.6 mg p.o. daily for a week colchicine 0.6 mg p.o. daily for 1 week post EP study - Ablation instructions given Patient instructed to come with all his medication bottles to the follow-up visit next week Patient Condition at Discharge: Stable Plan - Discharge Summary Discharge Rx Participant: No New Discharge Prescriptions: New Colchicine 0.3 mg PO DAILY #7 tablet No Action Apixaban [Eliquis] 5 mg PO BID Atorvastatin [Lipitor] 20 mg PO HS #30 tab Baclofen [Lioresal] 10 mg PO BID PRN PRN Reason: Muscle Spasm Spironolactone 25 mg PO DAILY carvediloL [Coreg*] 1.5 tab PO BID Fluticasone/Umeclidin/Vilanter [Trelegy Ellipta 100-62.5-25] 1 inhalation INHALATION DAILY Pantoprazole Sodium [Protonix] 20 mg PO DAILY HYDROcodone/APAP 7.5-325MG [[place] 7.5-325] 1 tab PO Q12H PRN PRN Reason: Pain Furosemide [Lasix] 20 mg PO DAILY Amiodarone [Cordarone] 50 mg PO DAILY Discharge Medication List Apixaban [Eliquis] 5 mg PO BID 10/31/22 [History] Atorvastatin [Lipitor] 20 mg PO HS #30 tab 11/01/22 [Rx] Baclofen [Lioresal] 10 mg PO BID PRN 03/24/23 [History] HYDROcodone/APAP 7.5-325MG [[place] 7.5-325] 1 tab PO Q12H PRN 11/24/23 [History] Spironolactone 25 mg PO DAILY 11/24/23 [History] carvediloL [Coreg*] 1.5 tab PO BID 02/17/24 [History] Amiodarone [Cordarone] 50 mg PO DAILY 05/05/24 [History] Fluticasone/Umeclidin/Vilanter [Trelegy Ellipta 100-62.5-25] 1 inhalation INHALATION DAILY 05/05/24 [History] Furosemide [Lasix] 20 mg PO DAILY 05/05/24 [History] Pantoprazole Sodium [Protonix] 20 mg PO DAILY 05/05/24 [History] Colchicine 0.3 mg PO DAILY #7 tablet 05/07/24 [Rx] Follow up Appointment(s)/Referral(s): Jose Armstrong MD [STAFF PHYSICIAN] - 1 Week Patient Instructions/Handouts: Cardiac Ablation (DC) Activity/Diet/Wound Care/Special Instructions: Post EP study - Ablation instructions 1. Keep access sites dry for 2 days. 2. No heavy lifting or straining for 2 days. 3. Avoid bending the hips repeatedly for 2 days. 4. You may go up and down stairs slowly Call if the following is noted 1. Bleeding, increasing swelling or pain at the access sites. 2. Increasing chest discomfort, especially upon taking a deep breath. 3. Increasing shortness of breath, at rest or with exertion. 4. Undue cough / phlegm 5. Difficulty or pain while swallowing. 6. Pain or change in color in the extremities. 7. Fever, chills, rigors. 8. Increasing headache or neurologic symptoms. 9. Dizziness, fainting, palpitations Discharge Disposition: HOME SELF-CARE
[2024-05-07] MEDS: PANTOPRAZOLE 40 MG TABLET PO SCH (08:34)
[2024-05-07] MEDS: FUROSEMIDE 20 MG TAB PO SCH (08:34)
[2024-05-07] MEDS: SPIRONOLACTONE 25 MG TAB PO SCH (08:34)
[2024-05-07] MEDS: AMIODARONE 100 MG TAB PO SCH (08:34)
[2024-05-07] MEDS ORDERED: IPRATROPIUM 0.5 MG/2.5 ML NEBU INHALATION SCH (16:00)
== END 2024-05-07 10:05 | disposition home or self-care (01) ==
LOC: CATHEP 09:31 → 6NMEDSUR 14:51 → CATHEP 05-07 10:05
PROVIDERS: ATTEND Internal Medicine Clinical Cardiac Electrophysiology
CPT/HCPCS: 80053; 84443; 85025; 86850; 86900; 86901; 93656; 93657; 94640